=== PATIENT | male | born 1955 | race Caucasian/White ===

== ENCOUNTER 2018-08-19 18:29 | Inpatient (IN) | payer OTHER, SELFPAY ==
--- NOTE | 2018-08-19 19:40 | RAD REPORT ---
EXAM DESCRIPTION: CT - [id number] - 08/19/2018 7:27 pm CLINICAL HISTORY: Trauma, head and neck injury. fall COMPARISON: No comparisons TECHNIQUE: Axial 5 mm thick images of the head were obtained. Axial 2 mm thick images of the cervical spine were obtained with sagittal and coronal reconstruction images generated and reviewed. All CT scans are performed using dose optimization technique as appropriate and may include automated exposure control or mA/KV adjustment according to patient size. FINDINGS: CT HEAD WITHOUT CONTRAST: No acute hemorrhage, hydrocephalus or extra-axial collection is identified.No areas of brain edema or midline shift. The paranasal sinuses and mastoids are clear.The calvarium is intact. CT CERVICAL SPINE WITHOUT CONTRAST: No fracture or subluxation.Mild multilevel cervical spondylosis is present.No prevertebral soft tissu es swelling is identified. IMPRESSION: No acute intracranial or cervical spine findings. Multilevel cervical spondylosis is noted.
[2018-08-19 19:45] LABS: Protime INR 0.97
[2018-08-19 19:50] LABS: Absolute Lymphocytes (CBC) 0.8 K/uL (0.7-4.9); Absolute Monocytes 0.5 K/uL (0.1-1.3); Absolute Neutrophil 4.8 K/uL (1.8-8.0); Basophils % 0.3 % (0-1.3); Eosinophils % 0.2 % (0-4.4); Lymphocytes % 12.5 % (15.3-44.8); MCH 37.3 pg (27.0-35.0); MCV 107.3 fL (80-100); MPV 9.1 fL (7.6-11.3); Monocytes % 7.8 % (3.3-12.3); RBC Red Blood Cell Count 3.63 M/uL (4.33-5.43)
[2018-08-19 19:55] LABS: ALT/SGPT 75 U/L (12-78); AST/SGOT 168 U/L (15-37); Albumin 4.1 g/dL (3.4-5.0); Alkaline Phosphatase 136 U/L (45-117); BUN Blood Urea Nitrogen 26 mg/dL (7-18); Bicarbonate 26 mmol/L (21-32); Bilirubin Direct 0.9 mg/dL (0-0.2); Bilirubin Total 1.3 mg/dL (0.2-1.0); Glucose Level 213 mg/dL (74-106); Magnesium 1.7 mg/dL (1.8-2.4); NT PRO-BNP 269 pg/mL (<125); Potassium 3.4 mmol/L (3.5-5.1); Protein, Total 7.8 g/dL (6.4-8.2); Sodium Level 129 mmol/L (136-145); Troponin (Emerg Dept Use Only) < 0.02 ng/mL (0.0-0.045)
[2018-08-19 20:19] LABS: Blood Morphology Comment NOT SEEN (NOT SEEN); Macrocytosis 1+; Platelet Estimate ADEQ; Urine White Blood Cell Casts OK
[2018-08-19] MEDS ORDERED: LIDOCAINE 1% W/EPI 1:100,000 MDV 50 ML VIAL ONE (20:23)
[2018-08-19] MEDS ORDERED: ONDANSETRON 4 MG/2 ML VIAL IV PRN (20:46)
[2018-08-19] MEDS ORDERED: ALPRAZOLAM 0.25 MG TABLET PO PRN (20:46)
[2018-08-19] MEDS ORDERED: ACETAMINOPHEN 500 MG TAB PO PRN (20:46)
[2018-08-19] MEDS: chlordiazePOXIDE HCl 5 MG CAP PO SCH (21:00)
--- NOTE | 2018-08-19 21:02 | RAD REPORT ---
EXAM DESCRIPTION: RAD - Chest Single View - 08/19/2018 8:40 pm CLINICAL HISTORY: fall to gr Chest pain. COMPARISON: No comparisons FINDINGS: Portable technique limits examination quality. The lungs are grossly clear. The heart is normal in size. No displaced fractures. IMPRESSION: No acute intrathoracic process suspected.
[2018-08-19] MEDS ORDERED: THIAMINE 200 MG/2 ML INJ ONE (21:28)
[2018-08-19] MEDS ORDERED: NA CHLORIDE 0.9% 2,000 ML ONE (21:28)
[2018-08-19] MEDS ORDERED: MULTIVITAMINS 10 ML VIAL (INJ) IV ONE (21:28)
[2018-08-19] MEDS ORDERED: FOLIC ACID 5 MG/ML VIAL ONE (21:29)
--- NOTE | 2018-08-19 21:48 | EDPHYS ---
Physician Documentation [facility] Name: Shreyas Mckeon Age: 63 yrs Sex: Male : 1955 Arrival Date: 08/19/2018 Time: 18:34 Bed 25 Private MD: ED Physician Palmer Erickson HPI: 08/19 19:00 This 63 yrs old Male presents to ER via EMS with complaints of Fall Injury. cp 19:00 Details of fall: The patient fell from an upright position. cp 19:00 Onset: The symptoms/episode began/occurred today. Associated injuries: The patient cp sustained injury to the head, laceration, of the bridge of nose. Patient reports waking up on floor next to bed. Patient states he believes he awoke from sleeping and went to get up out of bed. Reports next thing he remembers is awakening on floor. Admits to daily drinking of alcohol. Historical: - Allergies: 20:15 ACETAMINOPHEN; rv - PMHx: 20:15 Diabetes - NIDDM; Hypertension; rv - PSHx: 20:15 None; rv - Immunization history:: Adult Immunizations up to date. - Social history:: Smoking status: Patient/guardian denies using tobacco. - Immunization history: Last tetanus immunization: - up to date. - Ebola Screening: : Patient negative for fever greater than or equal to 101.5 degrees Fahrenheit, and additional compatible Ebola Virus Disease symptoms Patient denies exposure to infectious person Patient denies travel to an Ebola-affected area in the 21 days before illness onset. ROS: 19:05 Constitutional: Negative for body aches, chills, fever, poor PO intake. cp 19:05 Eyes: Negative for injury, pain, redness, and discharge. cp 19:05 ENT: Negative for drainage from ear(s), ear pain, sore throat, difficulty swallowing, difficulty handling secretions. 19:05 Cardiovascular: Negative for chest pain, edema, palpitations. 19:05 Respiratory: Negative for cough, shortness of breath, wheezing. 19:05 Abdomen/GI: Negative for abdominal pain, nausea, vomiting, and diarrhea, anorexia, black/tarry stool, rectal bleeding. 19:05 Back: Negative for pain at rest, pain with movement. 19:05 Skin: Positive for laceration(s), of the bridge of nose, Negative for cellulitis. 19:05 Neuro: Positive for syncope, Negative for altered mental status, headache, weakness. 19:05 Psych: Positive for alcohol dependence. 19:05 All other systems are negative. Exam: 19:12 Constitutional: The patient appears in no acute distress, alert, awake, cp non-diaphoretic, non-toxic, well developed, well nourished, smells of alcohol. 19:12 Head/face: Noted is a laceration(s), that is jagged, 2 cm(s), of the bridge of nose, cp Sinus tenderness, is not appreciated. 19:12 Eyes: Periorbital structures: appear normal, Pupils: equal, round, and reactive to light and accomodation, Extraocular movements: intact throughout, Conjunctiva: normal, no exudate, no injection, Sclera: no appreciated abnormality, Lids and lashes: appear normal, bilaterally. 19:12 ENT: External ear(s): are unremarkable, Ear canal(s): are normal, clear, TM's: bulging, is not appreciated, bilaterally, dullness, bilaterally, erythema, is not appreciated, bilaterally, Nose: Nasal septum: is midline, no septal hematoma appreciated, bleeding, is not appreciated, nasal drainage, is not appreciated, Mouth: Lips: moist, Oral mucosa: moist, Posterior pharynx: is normal, airway is patent, no erythema, no exudate. 19:12 Neck: C-spine: vertebral tenderness, is not appreciated, crepitus, is not appreciated, ROM/movement: limited range of motion, is not appreciated, nuchal rigidity, is not appreciated. 19:12 Chest/axilla: Inspection: normal, Palpation: is normal, no crepitus, no tenderness. 19:12 Cardiovascular: Rate: normal, Rhythm: regular, Edema: is not appreciated, JVD: is not appreciated. 19:12 Respiratory: the patient does not display signs of respiratory distress, Respirations: normal, no use of accessory muscles, no retractions, no splinting, no tachypnea, labored breathing, is not present, Breath sounds: are clear throughout, no decreased breath sounds, no stridor, no wheezing. 19:12 Abdomen/GI: Inspection: abdomen appears normal, Bowel sounds: active, all quadrants, Palpation: abdomen is soft and non-tender, in all quadrants. 19:12 Back: pain, is absent, ROM is normal, vertebral tenderness, is not appreciated. 19:12 Skin: cellulitis, is not appreciated, no rash present. 19:12 Neuro: Orientation: to person, place \T\ time. Mentation: lucid, able to follow commands, Motor: moves all fours, strength is normal, Sensation: no obvious gross deficits, Gait: not tested. 19:25 ECG was reviewed by the Attending Physician. cp 22:00 : Rectal exam: Stool: dark, Guaiac testing: results were negative for occult blood. cp Vital Signs: 19:21 BP 98 / 58; Pulse 69; Resp 17; Temp 97.9; Pulse Ox 99% on R/A; Pain 3/10; kr2 19:35 BP 99 / 66 LA Supine (auto/reg); Pulse 81; Pulse Ox 97% on R/A; jp3 19:35 BP 92 / 69 LA Sitting (auto/reg); Pulse 85; Pulse Ox 97% on R/A; jp3 19:37 BP 106 / 54 LA Standing (auto/reg); Pulse 90; Pulse Ox 97% on R/A; jp3 20:16 BP 96 / 56; Pulse 90; Resp 16; Pulse Ox 99% on R/A; kr2 21:00 BP 94 / 59; Pulse 73; Resp 17; Pulse Ox 100% ; kr2 22:01 BP 111 / 63; Pulse 97; Resp 17; Pulse Ox 100% on R/A; kr2 23:00 BP 122 / 79; Pulse 78; Resp 16; Pulse Ox 99% on R/A; kr2 Binh Coma Score: 20:17 Eye Response: spontaneous(4). Verbal Response: oriented(5). Motor Response: obeys rv commands(6). Total: 15. Trauma Score (Adult): 20:17 Eye Response: spontaneous(1); Verbal Response: oriented(1); Motor Response: obeys rv commands(2); Systolic BP: > 89 mm Hg(4); Respiratory Rate: 10 to 29 per min(4); Binh Score: 15; Trauma Score: 12 Laceration: 21:42 Wound Repair of 2cm ( 0.8in ) subcutaneous laceration to nose. Irregularly shaped.. cp Distal neuro/vascular/tendon intact. Anesthesia: Wound infiltrated with 2 mls of 1% lidocaine w/ Epi. Wound prep: Moderate cleansing by nurse. Skin closed with 3 5-0 Vicryl using interrupted sutures and sterile technique. Dressed with Bacitracin, bandaid. Patient tolerated well. MDM: 18:38 Patient medically screened. cp 19:00 Differential diagnosis: closed head injury, contusion, fracture, laceration, multiple cp trauma. 21:45 Data reviewed: vital signs, nurses notes, lab test result(s), EKG, radiologic studies, cp CT scan, plain films. 21:45 Test interpretation: by ED physician or midlevel provider: ECG, plain radiologic cp studies. Counseling: I had a detailed discussion with the patient and/or guardian regarding: the historical points, exam findings, and any diagnostic results supporting the discharge/admit diagnosis, lab results, radiology results, the need for further work-up and treatment in the hospital. Response to treatment: the patient's symptoms have mildly improved after treatment. 08/19 18:45 Order name: Basic Metabolic Panel; Complete Time: 20:01 08/19 20:01 Interpretation: Normal except: NA 129; K 3.4; CL 87; GLUC 213; BUN 26; CRE 2.60; GFR 25.cp 08/19 18:45 Order name: CBC with Diff; Complete Time: 20:28 08/19 20:02 Interpretation: Normal except: RBC 3.63; HCT 39.0; MCV 107.3; MCH 37.3; KRISTAL% 79.2; LYM% cp 12.5. 08/19 18:45 Order name: LFT's; Complete Time: 20:01 08/19 20:02 Interpretation: Normal except: AST 168; ALK 136; BILIT 1.3; BILID 0.9; GLOB 3.7. 08/19 18:45 Order name: Magnesium; Complete Time: 20:01 cp 08/19 20:16 Interpretation: Abnormal: MG 1.7. 08/19 18:45 Order name: NT PRO-BNP; Complete Time: 20:01 cp 08/19 18:45 Order name: PT-INR; Complete Time: 20:01 cp 08/19 18:45 Order name: Troponin (emerg Dept Use Only); Complete Time: 20:01 cp 08/19 19:51 Order name: CBC Smear Scan; Complete Time: 20:28 EDMS 08/19 20:07 Order name: Urine Microscopic Only 08/19 20:15 Order name: Alcohol Level; Complete Time: 21:05 08/19 20:15 Order name: LAB Add On 08/19 20:19 Order name: Alcohol Serum/Plasma; Complete Time: 21:05 EDMS 08/19 20:54 Order name: CBC with Automated Diff EDMS 08/19 20:54 Order name: CBC with Automated Diff EDMS 08/19 18:45 Order name: CT Head C Spine; Complete Time: 20:01 08/19 20:04 Order name: XRAY Chest (1 view); Complete Time: 21:05 08/19 20:54 Order name: Comprehensive Metabolic Panel EDMS 08/19 20:54 Order name: Comprehensive Metabolic Panel EDMS 08/19 20:54 Order name: Magnesium EDMS 08/19 20:54 Order name: Magnesium EDMS 08/19 20:54 Order name: Phosphorus EDMS 08/19 20:54 Order name: Phosphorus EDMS 08/19 20:54 Order name: Protime (+INR) EDMS 08/19 20:54 Order name: Protime (+INR) EDMS 08/19 20:54 Order name: PTT, Activated Partial Thromb EDMS 08/19 20:54 Order name: PTT, Activated Partial Thromb EDMS 08/19 23:34 Order name: Urine Dipstick--Ancillary (enter results) [facility] 08/19 23:37 Order name: Urine Dipstick-Ancillary [facility] 08/19 18:45 Order name: Orthostatics; Complete Time: 20:13 08/19 18:45 Order name: EKG; Complete Time: 18:46 08/19 18:45 Order name: Cardiac monitoring; Complete Time: 19:23 08/19 18:45 Order name: EKG - Nurse/Tech; Complete Time: 19:23 08/19 18:45 Order name: IV Saline Lock; Complete Time: 19:23 08/19 18:45 Order name: Labs collected and sent; Complete Time: 19:23 08/19 18:45 Order name: O2 Per Protocol; Complete Time: 19:30 08/19 18:45 Order name: O2 Sat Monitoring; Complete Time: 19:30 08/19 20:07 Order name: Urine Dipstick-Ancillary (obtain specimen); Complete Time: 23:48 08/19 20:10 Order name: Wound Care; Complete Time: 20:18 08/19 20:10 Order name: Dressing - Wound; Complete Time: 20:27 08/19 20:10 Order name: Gloves, Sterile; Complete Time: 20:18 08/19 20:10 Order name: Setup Suture Tray; Complete Time: 20:18 08/19 20:54 Order name: NPO EDMS EC: Rate is 80 beats/min. Rhythm is regular. NH interval is prolonged at 234 msec. QRS cp interval is normal. QT interval is normal. Interpreted by me. Reviewed by me. Administered Medications: 21:15 Drug: Lidocaine-Epinephrine -1%: (1:100,000) 5 ml {Note: Administered by provider kr PA. Judith} Volume: 20 ml; Route: Infiltration; 22:00 Follow up: Response: No adverse reaction; Pain is decreased [facility] 21:35 Drug: NS 0.9% 1000 ml Route: IV; Rate: 1 bolus; Site: left forearm; kr2 22:45 Follow up: Response: No adverse reaction; IV Status: Completed infusion [facility] 08/20 03:40 Follow up: IV Status: Completed infusion; IV Intake: 1000ml 08/19 21:35 Drug: Banana Bag - (NS 0.9% 1000 ml, foLIC Acid 1 mg, Thiamine 100 mg, Multivitamin 1 kr2 amp) Route: IV; Rate: 150 ml/hr; Site: left forearm; 23:47 Follow up: Response: No adverse reaction; IV Status: Infusion continued upon admission [facility] 08/20 03:40 Follow up: IV Status: Completed infusion; IV Intake: 1000ml bb Disposition: 08/19 22:00 Chart complete. cp Disposition: 08/19/18 21:47 Hospitalization ordered by Palmer Avalos for Inpatient Admission. Preliminary diagnosis are Hypotension, Alcohol abuse with intoxication, Syncope and collapse, Unspecified kidney failure. - Bed requested for Telemetry/MedSurg (observation). - Status is Inpatient Admission. bb - Condition is Stable. - Problem is new. - Symptoms have improved. UTI on Admission? No Addendum: 08/22/2018 06:03 Co-signature as Attending Physician, Mohammad Alzahri MD. m a2 Signatures: Dispatcher [employer] EDMS Janice Rivas RN RN Kendra De Jesus RN RN bb Jose Carrion PA PA cp Reaves, Karey, RN RN kr2 Palmer Erickson MD MD ma2 Evaristo Rossi RN RN rv Corrections: (The following items were deleted from the chart) 08/19 21:48 21:47 Hospitalization Ordered by Palmer Avalos MD for Observation. Preliminary mw diagnosis is Hypotension; Alcohol abuse with intoxication; Syncope and collapse. Bed requested for Telemetry/MedSurg (observation). Status is Observation. Condition is Stable. Problem is new. Symptoms have improved. UTI on Admission? No. cp 22:03 21:48 08/19/2018 21:47 Hospitalization Ordered by Palmer Avalos MD for Observation. cp Preliminary diagnosis is Hypotension; Alcohol abuse with intoxication; Syncope and collapse. Bed requested for [facility] ER HOLD. Status is Observation. Condition is Stable. Problem is new. Symptoms have improved. UTI on Admission? No. 22:17 22:03 08/19/2018 21:47 Hospitalization Ordered by Palmer Avalos MD for Observation. cp Preliminary diagnosis is Hypotension; Alcohol abuse with intoxication; Syncope and collapse; Unspecified kidney failure. Bed requested for [facility] ER HOLD. Status is Observation. Condition is Stable. Problem is new. Symptoms have improved. UTI on Admission? No. cp 08/20 04:01 08/19 22:17 08/19/2018 21:47 Hospitalization Ordered by Palmer Avalos MD for Inpatient mw Admission. Preliminary diagnosis is Hypotension; Alcohol abuse with intoxication; Syncope and collapse; Unspecified kidney failure. Bed requested for [facility] ER HOLD. Status is Inpatient Admission. Condition is Stable. Problem is new. Symptoms have improved. UTI on Admission? No. cp 08/20 04:16 04:01 08/19/2018 21:47 Hospitalization Ordered by Palmer Avalos MD for Inpatient bb Admission. Preliminary diagnosis is Hypotension; Alcohol abuse with intoxication; Syncope and collapse; Unspecified kidney failure. Bed requested for Telemetry/MedSurg (observation). Status is Inpatient Admission. Condition is Stable. Problem is new. Symptoms have improved. UTI on Admission? No. mw
--- NOTE | 2018-08-19 21:48 | ER ---
Nurse's Notes [facility] Unit Name: Shreyas Mckeon Age: 63 yrs Sex: Male : 1955 Arrival Date: 08/19/2018 Time: 18:34 Bed 25 Private MD: Diagnosis: Hypotension;Alcohol abuse with intoxication;Syncope and collapse;Unspecified kidney failure Presentation: 08/19 18:49 Presenting complaint: EMS states: "He stood up from sleeping. doesn't remember falling rv down. He woke up on the floor. He fell two or three days ago hit his head but did not go to medical facility.". Transition of care: patient was not received from another setting of care. Onset of symptoms was August 19, 2018 at 18:51. Risk Assessment: Do you want to hurt yourself or someone else? Patient reports no desire to harm self or others. Initial Sepsis Screen: Does the patient meet any 2 criteria? No. Patient's initial sepsis screen is negative. Does the patient have a suspected source of infection? No. Patient's initial sepsis screen is negative. Care prior to arrival: None. 18:49 Method Of Arrival: EMS: [facility] rv 18:49 Acuity: FRIDA 3 rv 18:50 Trauma event details: Injury occurred in the [facility], Injury occurred: at kr2 home. Injury occurred: August 19, 2018. 20:18 Mechanism of Injury: Fall. rv Triage Assessment: 20:18 General: Appears in no apparent distress. uncomfortable, Behavior is calm. rv 20:18 Pain: Denies pain. rv Trauma Activation: Not Applicable Physician: ED Physician; Name: ; Notified At: ; Arrived At: Physician: General Surgeon; Name: ; Notified At: ; Arrived At: Physician: Radiology; Name: ; Notified At: ; Arrived At: Physician: Respiratory; Name: ; Notified At: ; Arrived At: Physician: Lab; Name: ; Notified At: ; Arrived At: Historical: - Allergies: 20:15 ACETAMINOPHEN; rv - PMHx: 20:15 Diabetes - NIDDM; Hypertension; rv - PSHx: 20:15 None; rv - Immunization history:: Adult Immunizations up to date. - Social history:: Smoking status: Patient/guardian denies using tobacco. - Immunization history: Last tetanus immunization: - up to date. - Ebola Screening: : Patient negative for fever greater than or equal to 101.5 degrees Fahrenheit, and additional compatible Ebola Virus Disease symptoms Patient denies exposure to infectious person Patient denies travel to an Ebola-affected area in the 21 days before illness onset. Screenin:16 Abuse screen: Denies threats or abuse. Denies injuries from another. Nutritional rv screening: No deficits noted. Tuberculosis screening: No symptoms or risk factors identified. Fall Risk Fall in past 12 months (25 points). No secondary diagnosis (0 pts). No IV (0 pts). Ambulatory Aid- None/Bed Rest/Nurse Assist (0 pts). Gait- Normal/Bed Rest/Wheelchair (0 pts) Mental Status- Oriented to own ability (0 pts). Total Robertson Fall Scale indicates Low Risk Score (25-44 pts). Fall prevention measures have been instituted. Side Rails Up X 2 Placed close to Nursing Station Frequent Obs/Assesments occuring As available Patient and Family Educated on Fall Prevention Program and strategies. Primary Survey: 20:17 A: Airway: patent. Breathing/Chest: Respiratory pattern: regular. Circulation: Cardiac rv rhythm: sinus rhythm. Disability Alert. 20:17 Reassessment Airway Airway Patent Breathing/Chest Respiratory pattern Regular rv Circulation Heart rhythm Sinus rhythm Disability Alert. Assessment: 19:30 General: Appears in no apparent distress. comfortable, well groomed, well developed, kr2 Behavior is calm, cooperative, appropriate for age. Pain: Complains of pain in face and nose Pain currently is 3 out of 10 on a pain scale. Quality of pain is described as aching, Is continuous, Alleviated by rest. Neuro: Level of Consciousness is awake, alert, obeys commands, Oriented to person, place, time, situation, Appropriate for age. Cardiovascular: Capillary refill < 3 seconds in bilateral fingers Patient's skin is warm and dry. Respiratory: Airway is patent Respiratory effort is even, unlabored, Respiratory pattern is regular, symmetrical. GI: Abdomen is flat, non-distended. EENT: Oral mucosa is moist. Derm: Skin with poor turgor Skin is pink, warm \\T\\ dry. Musculoskeletal: Circulation, motion, and sensation intact. Injury Description: Abrasion sustained to forehead is dirty, Laceration sustained to nose is contaminated, 0.5 to 2.5 cm long, a small amount of bleeding noted at this time. 20:30 Reassessment: Patient appears in no apparent distress at this time. Patient and/or kr2 family updated on plan of care and expected duration. Pain level reassessed. Patient is alert, oriented x 3, equal unlabored respirations, skin warm/dry/pink. Patient denies pain at this time. Patient states feeling better. 21:30 Reassessment: Patient appears in no apparent distress at this time. Patient and/or kr2 family updated on plan of care and expected duration. Pain level reassessed. Patient is alert, oriented x 3, equal unlabored respirations, skin warm/dry/pink. Patient denies pain at this time. Patient states feeling better. 22:30 Reassessment: Patient appears in no apparent distress at this time. Patient and/or kr2 family updated on plan of care and expected duration. Pain level reassessed. Patient is alert, oriented x 3, equal unlabored respirations, skin warm/dry/pink. 23:52 Reassessment: See [facility] charting. kr2 Vital Signs: 19:21 BP 98 / 58; Pulse 69; Resp 17; Temp 97.9; Pulse Ox 99% on R/A; Pain 3/10; kr2 19:35 BP 99 / 66 LA Supine (auto/reg); Pulse 81; Pulse Ox 97% on R/A; jp3 19:35 BP 92 / 69 LA Sitting (auto/reg); Pulse 85; Pulse Ox 97% on R/A; jp3 19:37 BP 106 / 54 LA Standing (auto/reg); Pulse 90; Pulse Ox 97% on R/A; jp3 20:16 BP 96 / 56; Pulse 90; Resp 16; Pulse Ox 99% on R/A; kr2 21:00 BP 94 / 59; Pulse 73; Resp 17; Pulse Ox 100% ; kr2 22:01 BP 111 / 63; Pulse 97; Resp 17; Pulse Ox 100% on R/A; kr2 23:00 BP 122 / 79; Pulse 78; Resp 16; Pulse Ox 99% on R/A; kr2 Binh Coma Score: 20:17 Eye Response: spontaneous(4). Verbal Response: oriented(5). Motor Response: obeys rv commands(6). Total: 15. Trauma Score (Adult): 20:17 Eye Response: spontaneous(1); Verbal Response: oriented(1); Motor Response: obeys rv commands(2); Systolic BP: > 89 mm Hg(4); Respiratory Rate: 10 to 29 per min(4); [place] Score: 15; Trauma Score: 12 ED Course: 18:34 Patient arrived in ED. kr2 18:38 Jose Carrion PA is PHCP. cp 18:38 Palmer Erickson MD is Attending Physician. cp 18:40 Thermoregulation: warm blanket given to patient. kr2 18:51 Triage completed. rv 19:00 Missed attempt(s): 20 gauge in right antecubital area. Bleeding controlled, band aid kr2 applied, catheter tip intact. 19:[address] via wheelchair. cw1 19:05 Missed attempt(s): 22 gauge in left forearm. Bleeding controlled, band aid applied, kr2 catheter tip intact. 19:15 Initial lab(s) drawn, by me, sent to lab. jp3 19:22 Inserted saline lock: 22 gauge in left forearm, using aseptic technique. Blood jp3 collected. 19:23 EKG done, by ED staff, reviewed by Jose HANSEN. kr2 19:23 Basic Metabolic Panel Sent. jp3 19:23 CBC with Diff Sent. jp3 19:23 LFT's Sent. jp3 19:23 Magnesium Sent. jp3 19:23 NT PRO-BNP Sent. jp3 19:23 PT-INR Sent. jp3 19:23 Troponin (emerg Dept Use Only) Sent. jp3 19:25 CT completed. Patient moved back from CT. cw1 19:28 CT Head C Spine In Process Unspecified. EDMS 19:30 Bed in low position. Call light in reach. Side rails up X 1. Side rails up X2. jp3 19:50 Warm blanket given. Pillow given. Pulse ox on. NIBP on. jp3 20:17 No provider procedures requiring assistance completed. rv 20:18 Patient maintains SpO2 saturation greater than 95% on room air. rv 20:18 Arm band placed on left wrist. rv 20:20 Wound care: to laceration located on nose was cleaned with Hibiclens, debrided using jp3 Betadine scrub, dressed with 4X4s, Patient tolerated well. 20:35 Initial lab(s) drawn, by me, sent to lab. nicky ETHO from 22-gauge IV in L-Forearm. jp3 20:40 XRAY Chest (1 view) In Process Unspecified. EDMS 20:40 Alcohol Serum/Plasma Sent. jp3 20:40 Alcohol Level Sent. jp3 20:40 LAB Add On Sent. jp3 20:44 X-ray completed. Portable x-ray completed in exam room. Patient tolerated procedure kp1 well. 21:46 Palmer Avalos MD is Hospitalizing Provider. cp 22:02 Sheela Ji, BRICE is Primary Nurse. kr2 08/20 02:00 Patient admitted, IV remains in place. bb Administered Medications: 08/19 21:15 Drug: Lidocaine-Epinephrine -1%: (1:100,000) 5 ml {Note: Administered by provider kr2 PA. Judith} Volume: 20 ml; Route: Infiltration; 22:00 Follow up: Response: No adverse reaction; Pain is decreased kr2 21:35 Drug: NS 0.9% 1000 ml Route: IV; Rate: 1 bolus; Site: left forearm; kr2 22:45 Follow up: Response: No adverse reaction; IV Status: Completed infusion kr2 08/20 03:40 Follow up: IV Status: Completed infusion; IV Intake: 1000ml bb 08/19 21:35 Drug: Banana Bag - (NS 0.9% 1000 ml, foLIC Acid 1 mg, Thiamine 100 mg, Multivitamin 1 kr2 amp) Route: IV; Rate: 150 ml/hr; Site: left forearm; 23:47 Follow up: Response: No adverse reaction; IV Status: Infusion continued upon admission kr2 08/20 03:40 Follow up: IV Status: Completed infusion; IV Intake: 1000ml bb Intake: 08/19 23:56 IV: 1350ml (IV Fluid); Total: 1350ml. kr2 08/20 03:40 IV: 1000ml; Total: 2350ml. bb 03:40 IV: 1000ml; Total: 3350ml. bb Output: 08/19 23:56 Urine: 400ml; Total: 400ml. kr2 Outcome: 21:47 Decision to Hospitalize by Provider. cp 23:56 Patient's length of stay in the Emergency Department was greater than 2 hours. kr2 Patient's length of stay was extended due to staffing issues within the emergency department. 08/20 02:00 Condition: stable bb 02:00 Admitted to ER Hold. Please see [facility] for further documentation. bb 02:00 Instructed on the need for admit. 04:16 Patient left the ED. bb Signatures: Dispatcher [employer] EDKendra Aguilar, RN RN Ruth Abad cw1 Jose Carrion PA PA cp Poole, Kathy kp1 Sheela Ji RN RN kr2 Evaristo Rossi RN RN rv Nathan Frey jp3 Corrections: (The following items were deleted from the chart) 08/19 21:02 20:56 Reassessment: Patient appears in no apparent distress at this time. Patient kr2 and/or family updated on plan of care and expected duration. Pain level reassessed. Patient is alert, oriented x 3, equal unlabored respirations, skin warm/dry/pink. Patient denies pain at this time. Patient states feeling better. kr2 21:02 19:30 Pain: Complains of pain in face and nose Pain currently is 5 out of 10 on a pain kr2 scale. Quality of pain is described as aching, Is continuous, Alleviated by rest, kr2 21:02 19:30 Injury Description: Laceration sustained to nose is contaminated, 0.5 to 2.5 cm kr2 long, a small amount of bleeding noted at this time. kr2
[2018-08-19] MEDS ORDERED: chlordiazePOXIDE HCl 5 MG CAP PO ONE (23:14)
[2018-08-19 23:37] LABS: Urine Blood 2+ (NEG); Urine Glucose 2+ (NEG); Urine Protein 2+ (NEG); Urine Specific Gravity 1.015 (1.005-1.030)
[2018-08-20 01:40] LABS: Urine Amorphous Sediment TRACE /HPF (NONE SEEN); Urine Bacteria <20 /HPF (NONE SEEN); Urine Culture Reflex Order REFLEXED; Urine RBC NONE SEEN /HPF (NONE SEEN)
[2018-08-20 04:33] VITALS: BMI 27.6
[2018-08-20 05:40] LABS: Absolute Lymphocytes (CBC) 0.6 K/uL (0.7-4.9); Absolute Monocytes 0.5 K/uL (0.1-1.3); Absolute Neutrophil 5.5 K/uL (1.8-8.0); Basophils % 0.3 % (0-1.3); Eosinophils % 0.1 % (0-4.4); Hematocrit 34.8 % (39.6-49.0); MCH 37.7 pg (27.0-35.0); MCV 106.1 fL (80-100); MPV 8.8 fL (7.6-11.3); Monocytes % 7.9 % (3.3-12.3); RBC Red Blood Cell Count 3.28 M/uL (4.33-5.43)
[2018-08-20 05:51] LABS: Protime INR 0.99
[2018-08-20 06:01] LABS: Albumin 3.7 g/dL (3.4-5.0); Bilirubin Total 1.3 mg/dL (0.2-1.0); Phosphorus 2.1 mg/dL (2.5-4.9); Potassium 3.8 mmol/L (3.5-5.1); Protein, Total 6.8 g/dL (6.4-8.2)
[2018-08-20 06:02] LABS: Magnesium 1.4 mg/dL (1.8-2.4)
[2018-08-20] MEDS ORDERED: Magnesium Sulfate 2gm IVPB 2 G/50 ML BAG IV ONE (06:15)
--- NOTE | 2018-08-20 06:15 | EKG ---
Test Date: 2018-08-19 Test Time: 19:16:04 [employer] Closer: MEASUREMENT RESULTS: Intervals: Rate: 80 VA: 234 QRSD: 76 QT: 452 QTc: 521 Leonard: P: 72 VA: 234 QRS: 9 T: 15 INTERPRETIVE STATEMENTS: Sinus rhythm with 1st degree AV block with occasional premature ventricular complexes Low voltage QRS Cannot rule out Anterior infarct, age undetermined Abnormal ECG No previous ECG available for comparison Electronically Signed On 08-20-18 06:14:47 PROPERTY OFFICER by Aston Hobbs
[2018-08-20] MEDS ORDERED: HOME MED 1 EA UNK (Losartan/Hydrochlorothiazide [Losartan-Hctz 100-12.5 Mg Tab] 1 EACH) PO SCH (09:00)
[2018-08-20] MEDS: HOME MED 1 EA UNK (Empagliflozin [Jardiance] 10 MG) PO SCH (09:00)
[2018-08-20] MEDS ORDERED: ENOXAPARIN 40 MG/0.4 ML SQ SCH (09:00)
[2018-08-20] MEDS ORDERED: ENOXAPARIN 30 MG/0.3 ML SQ SCH (09:00)
[2018-08-20] MEDS ORDERED: POTASSIUM PHOS IN 0.9 % NACL 15 MMOL/250 ML BAG IV ONE (09:00)
[2018-08-20] MEDS: METFORMIN HCL 500 MG TAB PO SCH ×2 (09:50→16:54)
[2018-08-20] MEDS: chlordiazePOXIDE HCl 5 MG CAP PO SCH ×3 (09:50→21:19)
[2018-08-20] MEDS: LOSARTAN POTASSIUM 50 MG TABLET PO SCH (09:51)
[2018-08-20] MEDS: PANTOPRAZOLE 40MG TABLET PO SCH (09:51)
[2018-08-20] MEDS: LOSARTAN/HCTZ 50-12.5 PO SCH (09:51)
[2018-08-20] MEDS: FOLIC ACID 1 MG, MULTIVITAMINS INJ 10 ML, THIAMINE HCL 100 MG in NA CHLORIDE 0.9% 1,000 ML IV SCH (09:52)
[2018-08-20 11:39] LABS: Urine Appearance CLEAR; Urine Bilirubin NEGATIVE (NEG); Urine Blood 1+ (NEG); Urine Color YELLOW; Urine Glucose 3+ (NEG); Urine Protein 2+ (NEG); Urine pH 6.5 (5.0-7.0)
[2018-08-20 11:40] LABS: Absolute Lymphocytes (CBC) 0.5 K/uL (0.7-4.9); Absolute Monocytes 0.4 K/uL (0.1-1.3); Absolute Neutrophil 3.7 K/uL (1.8-8.0); Basophils % 0.3 % (0-1.3); Eosinophils % 0.1 % (0-4.4); Lymphocytes % 11.6 % (15.3-44.8); MCH 37.4 pg (27.0-35.0); MCV 105.8 fL (80-100); MPV 9.2 fL (7.6-11.3); RBC Red Blood Cell Count 3.03 M/uL (4.33-5.43)
[2018-08-20 12:08] LABS: Urine Microscopic Reflex ORDER UMIC
[2018-08-20 12:19] LABS: BUN Blood Urea Nitrogen 24 mg/dL (7-18); Bicarbonate 26 mmol/L (21-32); Folic Acid, (Folate) > 20.0 ng/mL (3.1-17.5); Glucose Level 203 mg/dL (74-106); Magnesium 2.1 mg/dL (1.8-2.4); Phosphorus 1.7 mg/dL (2.5-4.9); Potassium 3.6 mmol/L (3.5-5.1); Sodium Level 134 mmol/L (136-145)
[2018-08-20 12:21] LABS: Urine RBC <5 /HPF (NONE SEEN)
[2018-08-20 12:22] LABS: Urine Amorphous Sediment TRACE /HPF (NONE SEEN); Urine Bacteria <20 /HPF (NONE SEEN); Urine Culture Reflex Order REFLEXED
[2018-08-20 12:26] LABS: Blood Morphology Comment NOT SEEN (NOT SEEN); Platelet Estimate ADEQ
--- NOTE | 2018-08-20 12:50 | P.HP ---
Certification for Inpatient Patient admitted to: Inpatient With expected LOS: >2 Midnights Patient will require the following post-hospital care: None Practitioner: I am a practitioner with admitting privileges, knowledge of patient current condition, hospital course, and medical plan of care. Services: Services provided to patient in accordance with Admission requirements found in Title 42 Section 412.3 of the Code of Federal Regulations Patient History Date of Service: 08/19/18 Reason for admission: Syncope/fall/alcohol abuse History of Present Illness: patient is a 63-year-old gentleman who was getting out of bed and completely passed out. He suffered a head laceration. Patient states he had similar episode in the past. He is a heavy drinker and has been drinking heavily for many years. He is also a diabetic and was diagnosed with diabetes only 7 years ago. 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 He could also have her neuropathy related to B12 deficiency. Patient will need to be admitted to the hospital and workup for his syncopal episode. We will do an Echocardiogram and carotid Doppler to further evaluate. He may need MRI to evaluate for cerebellar atrophy as the cause of his ataxia as he has had many years of alcohol use and abuse. He will need to be monitored for arrhthymia and will need follow-up with neurology for EMG. Allergies acetaminophen Allergy (Verified 08/19/18 21:59) Hives Home Medications: Empagliflozin [Jardiance] 10 mg PO DAILY 08/20/18 Losartan/Hydrochlorothiazide [Losartan-Hctz 100-12.5 mg Tab] 1 each PO DAILY Metformin HCl 500 mg PO BID 08/20/18 Pantoprazole Sodium 40 mg PO DAILY 08/20/18 Rosuvastatin Calcium 10 mg PO DAILY 08/20/18 Zolpidem Tartrate 10 mg PO PRN 08/20/18 - Past Medical/Surgical History Has patient received pneumonia vaccine in the past: Yes Diabetic: Yes -: Hypertension -: Diabetes mellitus 2 -: Alcohol abuse -: cholecystectomy - Family History Father Family History: Reviewed- Non-Contributory - Social History Smoking Status: Current some day smoker Alcohol use: Yes CD- Drugs: No Caffeine use: Yes Place of Residence: Home Review of Systems 10-point ROS is otherwise unremarkable Physical Examination - Vital Signs Temperature: 98.0 F Blood Pressure: 129/60 Pulse: 90 Respirations: 18 Pulse Ox (%): 96 - Physical Exam General: Alert, In no apparent distress, Oriented x3 HEENT: Atraumatic, PERRLA, Mucous membr. moist/pink, EOMI, Sclerae nonicteric Neck: Supple, 2+ carotid pulse no bruit, No LAD, Without JVD or thyroid abnormality Respiratory: Clear to auscultation bilaterally, Normal air movement Cardiovascular: Regular rate/rhythm, Normal S1 S2, No murmurs Gastrointestinal: Normal bowel sounds, Soft and benign, Non-distended, No tenderness Musculoskeletal: No clubbing, No swelling, No tenderness Integumentary: No rashes Neurological: Normal speech, Normal tone, Sensation intact, Cranial nerves 3-12 intact, Normal affect, Abnormal gait, Abnormal strength Lymphatics: No axilla or inguinal lymphadenopathy - Studies Laboratory Data (last 24 hrs) 08/19/18 19:15: PT 11.4, INR 0.97 08/19/18 19:15: WBC 6.1, Hgb 13.6, Hct 39.0 L, Plt Count 225 08/19/18 19:15: Sodium 129 L, Potassium 3.4 L, BUN 26 H, Creatinine 2.60 H, Glucose 213 H, Magnesium 1.7 L, Total Bilirubin 1.3 H, AST 168 H, ALT 75, Alkaline Phosphatase 136 H Assessment & Plan - Problems (Diagnosis) (1) Syncope and collapse Current Visit: Yes Status: Acute (2) Alcohol abuse Current Visit: Yes Status: Acute (3) Neuropathy Current Visit: Yes Status: Acute (4) Ataxia Current Visit: Yes Status: Acute - Plan PLAN: 1. Monitor on telemetry 2. Monitor for arrhythmia 3. Will get echo 4. Check B12 and outpt neurology follow-up 5. EMG as an outpt 6. May need MRI to evlauate for cerebellar atrophy 7. GI/DVT prophylaxis - Advance Directives Does patient have a Living Will: No Does patient have a Durable POA for Healthcare: No - Code Status/Comfort Care Code Status Assessed: Yes Code Status: Full Code Critical Care: No Time Spent Managing PTS Care (In Minutes): 50
--- NOTE | 2018-08-20 15:15 | RAD REPORT ---
EXAM DESCRIPTION: US - Lower Extremity Artery Uni Ltd - 08/20/2018 1:43 pm CLINICAL HISTORY: Peripheral vascular disease, soft tissue wound COMPARISON: None. TECHNIQUE: Grayscale and Doppler evaluation performed of the left lower extremity arterial tree. Dc ocity values and waveforms were obtained. There is visual inspection of the arterial tree. FINDINGS: Left common femoral artery triphasic waveform pattern of served with a 162 cm/second veloc ity.Superficial femoral triphasic waveform pattern seen with 126 cm/second velocity. Triphasic poplit eal artery was 74 cm/second. Posterior tibial and dorsalis pedis artery waveforms are primarily monophasic. Posterior tibial veloc ity was 94 cm/second with the dorsalis pedis velocity 117 cm/second. On visual inspection, no significant plaquing or flow restrictive lesion identifiable. No occlusion o bserved. IMPRESSION: Left lower extremity peripheral arterial disease is present but relatively mild. No occl usion or flow restricting lesion.
--- NOTE | 2018-08-20 16:12 | RAD REPORT ---
EXAM DESCRIPTION: RAD - Foot Left 2 View - 08/20/2018 2:13 pm CLINICAL HISTORY: Soft tissue wound left first toe COMPARISON: None. FINDINGS: Bone loss changes are evident at the tip of the first distal phalanx. This is the area of soft tissue wound and highly suggestive of osteomyelitis. Posttraumatic fracture etiology is lesser i n likelihood. Elsewhere no acute or destructive bone process seen. No air or foreign body in the soft tissues. IMPRESSION: Osteomyelitis changes tip of the first distal phalanx. No air or foreign body in the sof t tissues.
--- NOTE | 2018-08-20 16:49 | P.PN ---
Subjective Date of Service: 08/20/18 Chief Complaint: Syncope/fall/alcohol abuse Patient seen and examined at bedside. No family at bedside. Chart reviewed and Case discussed with nursing staff. Patient reports a little bit better than initially when he came in. His left toe bothers him, other than that no other concerns or complaints this morning. Reports ambulating to bathroom and back without any issues this morning. Review of Systems As noted Physical Examination - Vital Signs Temperature: 98.0 F Blood Pressure: 129/60 Pulse: 90 Respirations: 18 Pulse Ox (%): 96 - Physical Exam General: Alert, In no apparent distress, Oriented x3 HEENT: Atraumatic, PERRLA, EOMI Neck: Supple, JVD not distended Respiratory: Clear to auscultation bilaterally, Normal air movement Cardiovascular: Regular rate/rhythm, Normal S1 S2 Gastrointestinal: Normal bowel sounds, No tenderness Musculoskeletal: No tenderness Integumentary: Skin breakdown (On face noted), Other (Great left toe with an open wound; ) Neurological: Normal speech, Normal tone, Normal affect, Abnormal sensation - Studies Laboratory Data (last 24 hrs) 08/19/18 19:15: PT 11.4, INR 0.97 08/19/18 19:15: WBC 6.1, Hgb 13.6, Hct 39.0 L, Plt Count 225 08/19/18 19:15: Sodium 129 L, Potassium 3.4 L, BUN 26 H, Creatinine 2.60 H, Glucose 213 H, Magnesium 1.7 L, Total Bilirubin 1.3 H, AST 168 H, ALT 75, Alkaline Phosphatase 136 H Assessment And Plan - Plan This is a 63-year-old male with: Syncope and collapse Continue monitoring with telemetry arrhythmia. An echo pending for further evaluation. Alcohol abuse Patient with a history of heavy alcohol usage. Counseled on cessation CIWA protocol, monitor for withdrawal symptoms. Banana bag ordered and running. Multi vitamins and folic acid daily Left great toe wound, chronic and non-healing Patient with an open ulcer on left great toe. Per patient, he notices about a month ago though he does not feel anything there due to his neuropathy. He is unsure how or when he got this wound. Left foot x-ray, MRI ordered to evaluate for osteomyelitis/bone involvement Will also order arterial studies to evaluate for arterial disease. Wound care consultative. Diabetes mellitus type 2, with hyperglycemia Continue Accu-Cheks. Sliding scale insulin ordered, will adjust as needed. Essential hypertension Stable on home medications. Neuropathy This is likely secondary to alcohol use versus diabetes that has been uncontrolled. No B12 deficiency noted Ataxia May need an MRI to evaluate for cerebellar atrophy, if no improvement in symptoms. He may also need outpatient neurology followup. DVT prophylaxis: Lovenox GI prophylaxis: Protonix Diet: Diabetic Disposition: Pending symptomatic treatment. Continue to monitor for alcohol withdrawal symptoms. Ativan as needed. Physician Review: Patient Assessed, Agree with Above Assessment and Plan Time Spent Managing PTS Care (In Minutes): 45
[2018-08-20] MEDS ORDERED: LORazepam 2 MG/ML VIAL IV PRN (17:01)
[2018-08-20] MEDS: ROSUVASTATIN 10 MG TAB PO SCH (21:19)
[2018-08-20] MEDS: ZOLPIDEM TARTRATE 10 MG TABLET PO PRN (21:20)
[2018-08-20] MEDS: PROMOD 30 ML DOSE PO SCH (21:20)
[2018-08-21 05:54] LABS: Phosphorus 1.3 mg/dL (2.5-4.9); Potassium 3.6 mmol/L (3.5-5.1)
[2018-08-21] MEDS ORDERED: POTASSIUM PHOS IN 0.9 % NACL 15 MMOL/250 ML BAG IV ONE (06:05)
[2018-08-21] MEDS: ENOXAPARIN 40 MG/0.4 ML SQ SCH (09:00)
[2018-08-21] MEDS: HOME MED 1 EA UNK (Empagliflozin [Jardiance] 10 MG) PO SCH (09:00)
[2018-08-21] MEDS: PROMOD 30 ML DOSE PO SCH ×2 (09:00→22:47)
[2018-08-21] MEDS: chlordiazePOXIDE HCl 5 MG CAP PO SCH ×3 (09:04→22:48)
[2018-08-21] MEDS: METFORMIN HCL 500 MG TAB PO SCH ×2 (09:05→17:00)
[2018-08-21] MEDS: LOSARTAN POTASSIUM 50 MG TABLET PO SCH (09:05)
[2018-08-21] MEDS: PANTOPRAZOLE 40MG TABLET PO SCH (09:05)
[2018-08-21] MEDS: LOSARTAN/HCTZ 50-12.5 PO SCH (09:05)
[2018-08-21] MEDS: FOLIC ACID 1 MG, MULTIVITAMINS INJ 10 ML, THIAMINE HCL 100 MG in NA CHLORIDE 0.9% 1,000 ML IV SCH (10:37)
--- NOTE | 2018-08-21 13:21 | P.PN ---
Subjective Date of Service: 08/21/18 Chief Complaint: Syncope/fall/alcohol abuse Subjective: No new changes, No C/O voiced, Improving Patient seen and examined at bedside. No family at bedside. Chart reviewed and Case discussed with nursing staff. Patient improved. States he is walking around, eating a regular diet without any concerns or complaints. Review of Systems As noted Physical Examination - Vital Signs Temperature: 97.1 F Blood Pressure: 137/75 Pulse: 74 Respirations: 18 Pulse Ox (%): 100 - Physical Exam General: Alert, In no apparent distress, Oriented x3 HEENT: Atraumatic, PERRLA, EOMI Neck: Supple, JVD not distended Respiratory: Clear to auscultation bilaterally, Normal air movement Cardiovascular: Regular rate/rhythm, Normal S1 S2 Gastrointestinal: Normal bowel sounds, No tenderness Musculoskeletal: No tenderness Integumentary: Skin breakdown (Great left toe with an open wound), Diabetic ulcer Neurological: Normal speech, Normal tone, Normal affect Lymphatics: No axilla or inguinal lymphadenopathy Assessment And Plan - Plan This is a 63-year-old male with: Syncope and collapse Continue monitoring with telemetry arrhythmia. An echo pending for further evaluation. Alcohol abuse Patient with a history of heavy alcohol usage. Counseled on cessation CIWA protocol, monitor for withdrawal symptoms. Banana bag ordered and running. Multi vitamins and folic acid daily Left great toe wound, chronic and non-healing Patient with an open ulcer on left great toe. Per patient, he notices about a month ago though he does not feel anything there due to his neuropathy. He is unsure how or when he got this wound. Left foot x-ray, MRI ordered to evaluate for osteomyelitis/bone involvement Will also order arterial studies to evaluate for arterial disease. Wound care consult Start IV vancomycin. Diabetes mellitus type 2, with hyperglycemia Continue Accu-Cheks. Sliding scale insulin ordered, will adjust as needed. Essential hypertension Stable on home medications. Neuropathy This is likely secondary to alcohol use versus diabetes that has been uncontrolled. No B12 deficiency noted Ataxia May need an MRI to evaluate for cerebellar atrophy, if no improvement in symptoms. He may also need outpatient neurology followup. DVT prophylaxis: Lovenox GI prophylaxis: Protonix Diet: Diabetic Disposition: Pending symptomatic treatment. Continue IV antibiotics and to monitor for alcohol withdrawal symptoms. Ativan as needed. Physician Review: Patient Assessed, Agree with Above Assessment and Plan Time Spent Managing PTS Care (In Minutes): 35
[2018-08-21] MEDS: VANCOMYCIN 1.5 GM in NA CHLORIDE 0.9% 500 ML IVPB SCH (15:33)
[2018-08-21] MEDS: ROSUVASTATIN 10 MG TAB PO SCH (22:48)
[2018-08-21] MEDS: ZOLPIDEM TARTRATE 10 MG TABLET PO PRN (22:48)
[2018-08-22 05:48] LABS: Phosphorus 1.7 mg/dL (2.5-4.9); Potassium 3.5 mmol/L (3.5-5.1)
[2018-08-22] MEDS ORDERED: POTASSIUM PHOS IN 0.9 % NACL 15 MMOL/250 ML BAG IV ONE (06:12)
[2018-08-22] MEDS: chlordiazePOXIDE HCl 5 MG CAP PO SCH ×3 (08:54→20:19)
[2018-08-22] MEDS: METFORMIN HCL 500 MG TAB PO SCH ×2 (08:54→17:39)
[2018-08-22] MEDS: LOSARTAN POTASSIUM 50 MG TABLET PO SCH (08:55)
[2018-08-22] MEDS: LOSARTAN/HCTZ 50-12.5 PO SCH (08:56)
[2018-08-22] MEDS: ENOXAPARIN 40 MG/0.4 ML SQ SCH (08:56)
[2018-08-22] MEDS: PROMOD 30 ML DOSE PO SCH ×2 (08:56→20:19)
[2018-08-22] MEDS: PANTOPRAZOLE 40MG TABLET PO SCH (08:56)
[2018-08-22] MEDS: HOME MED 1 EA UNK (Empagliflozin [Jardiance] 10 MG) PO SCH (08:57)
[2018-08-22] MEDS: FOLIC ACID 1 MG, MULTIVITAMINS INJ 10 ML, THIAMINE HCL 100 MG in NA CHLORIDE 0.9% 1,000 ML IV SCH (10:16)
--- NOTE | 2018-08-22 13:47 | RAD REPORT ---
EXAM DESCRIPTION: RAD - Chest Single View - 08/22/2018 1:46 am CLINICAL HISTORY: S/P PICC insertion COMPARISON: Chest Single View dated 08/19/2018 FINDINGS: Portable chest was obtained following placement of a right upper extremity PICC line. The catheter tip projects over the SVC.
[2018-08-22] MEDS: VANCOMYCIN 1.5 GM in NA CHLORIDE 0.9% 500 ML IVPB SCH (14:15)
--- NOTE | 2018-08-22 17:19 | P.PN ---
Subjective Date of Service: 08/22/18 Chief Complaint: Syncope/fall/alcohol abuse Subjective: No new changes, No C/O voiced, Tolerating diet, Ambulating, Improving Patient seen and examined at bedside. No family at bedside. Chart reviewed and Case discussed with nursing staff. Patient improved. States he is walking around, eating a regular diet without any concerns or complaints. Review of Systems As noted Physical Examination - Vital Signs Temperature: 97.2 F Blood Pressure: 142/72 Pulse: 69 Respirations: 20 Pulse Ox (%): 100 - Physical Exam General: Alert, In no apparent distress, Oriented x3 HEENT: Atraumatic, PERRLA, EOMI Neck: Supple, JVD not distended Respiratory: Clear to auscultation bilaterally, Normal air movement Cardiovascular: Regular rate/rhythm, Normal S1 S2 Gastrointestinal: Normal bowel sounds, No tenderness Musculoskeletal: No tenderness Integumentary: No rashes Neurological: Normal speech, Normal tone, Normal affect Lymphatics: No axilla or inguinal lymphadenopathy Assessment And Plan - Plan This is a 63-year-old male with: Syncope and collapse Continue monitoring with telemetry arrhythmia. An echo pending for further evaluation. Alcohol abuse Patient with a history of heavy alcohol usage. Counseled on cessation CIWA protocol, monitor for withdrawal symptoms. Banana bag ordered and running. Multi vitamins and folic acid daily Left great toe wound, chronic and non-healing Patient with an open ulcer on left great toe. Per patient, he notices about a month ago though he does not feel anything there due to his neuropathy. He is unsure how or when he got this wound. Left foot x-ray, MRI ordered to evaluate for osteomyelitis/bone involvement Will also order arterial studies to evaluate for arterial disease. Wound care consult Start IV vancomycin.. PICC line in place. Will need IV antibiotics x4 weeks, followed by oral antibiotics x2 weeks. Diabetes mellitus type 2, with hyperglycemia Continue Accu-Cheks. Sliding scale insulin ordered, will adjust as needed. Essential hypertension Stable on home medications. Neuropathy This is likely secondary to alcohol use versus diabetes that has been uncontrolled. No B12 deficiency noted Ataxia May need an MRI to evaluate for cerebellar atrophy, if no improvement in symptoms. He may also need outpatient neurology followup. DVT prophylaxis: Lovenox GI prophylaxis: Protonix Diet: Diabetic Disposition: Pending symptomatic treatment. Continue IV antibiotics and to monitor for alcohol withdrawal symptoms. Ativan as needed. He is pending home set up for IV antibiotics. Physician Review: Patient Assessed, Agree with Above Assessment and Plan Time Spent Managing PTS Care (In Minutes): 35
[2018-08-22] MEDS: ZOLPIDEM TARTRATE 10 MG TABLET PO PRN (20:19)
[2018-08-22] MEDS: ROSUVASTATIN 10 MG TAB PO SCH (20:20)
[2018-08-23 05:27] LABS: Phosphorus 1.9 mg/dL (2.5-4.9); Potassium 3.5 mmol/L (3.5-5.1)
[2018-08-23] MEDS ORDERED: POTASSIUM PHOS IN 0.9 % NACL 15 MMOL/250 ML BAG IV ONE (06:01)
[2018-08-23] MEDS: METFORMIN HCL 500 MG TAB PO SCH ×2 (08:38→17:54)
[2018-08-23] MEDS: LOSARTAN/HCTZ 50-12.5 PO SCH (08:38)
[2018-08-23] MEDS: ENOXAPARIN 40 MG/0.4 ML SQ SCH (08:38)
[2018-08-23] MEDS: PROMOD 30 ML DOSE PO SCH ×2 (08:39→20:40)
[2018-08-23] MEDS: HOME MED 1 EA UNK (Empagliflozin [Jardiance] 10 MG) PO SCH (08:39)
[2018-08-23] MEDS: LOSARTAN POTASSIUM 50 MG TABLET PO SCH (08:39)
[2018-08-23] MEDS: chlordiazePOXIDE HCl 5 MG CAP PO SCH ×3 (08:39→20:39)
[2018-08-23] MEDS: PANTOPRAZOLE 40MG TABLET PO SCH (08:40)
[2018-08-23] MEDS: FOLIC ACID 1 MG, MULTIVITAMINS INJ 10 ML, THIAMINE HCL 100 MG in NA CHLORIDE 0.9% 1,000 ML IV SCH (09:34)
--- NOTE | 2018-08-23 10:49 | RAD REPORT ---
EXAM DESCRIPTION: MRI - Foot Left Wo Cont - 08/23/2018 10:33 am CLINICAL HISTORY: wound to left great toe Osteomyelitis COMPARISON: Foot Left 2 View dated 08/20/2018 FINDINGS: Poorly defined soft tissue thickening and edema is present involving the distal aspect of the left great toe. Small focal soft tissue defect is present anteriorly and inferiorly compatible wi th focal soft tissue wound. Abnormal diminished T1 and elevated T2/IR signal seen the distal aspect o f the distal phalanx of the great toe, most compatible with osteomyelitis. No drainable fluid collect ion is seen. Prominent calcaneal spur noted posteriorly. No fracture, dislocation or aggressive marro w lesion. Plantar fascia is intact. IMPRESSION: Mild osteomyelitis involving the distal left great toe with adjacent soft tissue irregul arity. No drainable fluid collection identified.
[2018-08-23] MEDS: VANCOMYCIN 1.5 GM in NA CHLORIDE 0.9% 500 ML IVPB SCH (14:36)
--- NOTE | 2018-08-23 14:58 | ECHO ---
HEIGHT: 5 ft 9 in WEIGHT: 187 lb 0 oz DATE OF STUDY: 08/23/[address]: Palmer Avalos MD 2-DIMENSIONAL: YES M.MODE: YES DOPPLER: YES COLOR FLOW: YES TDS: PORTABLE: DEFINITY: BUBBLE STUDY: DIAGNOSIS: SYNCOPE CARDIAC HISTORY: CATHERIZATION: NO SURGERY: NO PROSTHETIC VALVE: NO PACEMAKER: NO MEASUREMENTS (cm) DIASTOLIC (NORMALS) SYSTOLIC (NORMALS) IVSd 1.0 (0.6-1.2) LA Diam 4.6 (1.9-4.0) LVEF 77% LVIDd 4.5 (3.5-5.7) LVIDs 2.4 (2.0-3.5) %FS 46% LVPWd 1.1 (0.6-1.2) Ao Diam 3.0 (2.0-3.7) 2 DIMENSIONAL ASSESSMENT: RIGHT ATRIUM: NORMAL LEFT ATRIUM: DILATED RIGHT VENTRICLE: NORMAL LEFT VENTRICLE: NORMAL TRICUSPID VALVE: NORMAL MITRAL VALVE: NORMAL PULMONIC VALVE: NORMAL AORTIC VALVE: NORMAL PERICARDIAL EFFUSION: NONE AORTIC ROOT: NORMAL LEFT VENTRICULAR WALL MOTION: NORMAL DOPPLER/COLOR FLOW: NORMAL COMMENTS: NORMAL LEFT EJECTION FRACTION. DILATED LEFT ATRIUM. OTHERWISE NORMAL TWO DIMENSIONAL ECHOCARDIOGRAM WITH DOPPLER. TECHNOLOGIST: LUIS GIL
--- NOTE | 2018-08-23 19:17 | P.DS ---
Admission Date: 08/19/18 Discharge Date: 08/23/18 Disposition: ROUTINE DISCHARGE Discharge Condition: GOOD Reason for Admission: Syncope/fall/alcohol abuse Brief History of Present Illness: patient is a 63-year-old gentleman who was getting out of bed and completely passed out. He suffered a head laceration. Patient states he had similar episode in the past. He is a heavy drinker and has been drinking heavily for many years. He is also a diabetic and was diagnosed with diabetes only 7 years ago. 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 He could also have her neuropathy related to B12 deficiency. Patient will need to be admitted to the hospital and workup for his syncopal episode. We will do an Echocardiogram and carotid Doppler to further evaluate. He may need MRI to evaluate for cerebellar atrophy as the cause of his ataxia as he has had many years of alcohol use and abuse. He will need to be monitored for arrhthymia and will need follow-up with neurology for EMG. Hospital Course: Syncope and collapse No further episodes in the hospital. This could likely be secondary to alcohol abuse. Echocardiogram was done, which was normal. Alcohol abuse Patient with a history of heavy alcohol usage. Counseled extensively on cessation He was given banana bag, multi vitamins and folic acid. He was also given Librium and Ativan as needed though he did not require any Ativan. No withdrawal symptoms noted while patient was admitted in the hospital. Left great toe wound, chronic and non-healing Patient with an open ulcer on left great toe. Per patient, he noticed about a month ago though he does not feel anything there due to his neuropathy. He is unsure how or when he got this wound. Left foot x-ray, MRI with evidence of bone involvement/mild to moderate osteomyelitis. Arterial studies without any blockage for stenosis. He was started on IV vancomycin, PICC line was placed. He will be discharged to a intermediate facility for IV antibiotics x4 weeks, followed by oral antibiotics x2 weeks. Diabetes mellitus type 2, with hyperglycemia This remains stable. No medication changes made to patient's regimen on discharge Essential hypertension Stable on home medications. Neuropathy This is likely secondary to alcohol use versus diabetes that has been uncontrolled. No B12 deficiency noted Neurology information given to patient for outpatient follow up for possible MRI /further workup for his neuropathy and ataxia. At the time of discharge, patient was alert oriented x3 hemodynamically stable, symptom-free. He is tolerating a regular diet and he had no concerns or complaints. All questions were answered, patient verbalized understanding. He was discharged to a intermediate facility for IV antibiotics. Vital Signs/Physical Exam: Temp Pulse Resp BP Pulse Ox 97.7 F 68 20 153/65 H 99 08/23/18 16:00 08/23/18 16:00 08/23/18 16:00 08/23/18 16:00 08/23/18 16:00 General: Alert, In no apparent distress HEENT: Atraumatic, PERRLA, EOMI Neck: Supple, JVD not distended Respiratory: Clear to auscultation bilaterally, Normal air movement Cardiovascular: Regular rate/rhythm, Normal S1 S2 Gastrointestinal: Normal bowel sounds, No tenderness Musculoskeletal: No tenderness Integumentary: No rashes Neurological: Normal speech, Normal tone, Normal affect Lymphatics: No axilla or inguinal lymphadenopathy Laboratory Data at Discharge: WBC 4.7 K/uL (4.3-10.9) D 08/20/18 10:55 Hgb 11.3 g/dL (13.6-17.9) L 08/20/18 10:55 Hct 32.0 % (39.6-49.0) L 08/20/18 10:55 Plt Count 170 K/uL (152-406) 08/20/18 10:55 PT 11.7 SECONDS (9.5-12.5) 08/20/18 05:27 INR 0.99 08/20/18 05:27 APTT 30.0 SECONDS (24.3-36.9) 08/20/18 05:27 Sodium 143 mmol/L (136-145) 08/23/18 04:35 Potassium 3.5 mmol/L (3.5-5.1) 08/23/18 04:35 BUN 20 mg/dL (7-18) H 08/23/18 04:35 Creatinine 1.30 mg/dL (0.55-1.3) 08/23/18 04:35 Glucose 128 mg/dL (74-106) H 08/23/18 04:35 Phosphorus 1.9 mg/dL (2.5-4.9) L 08/23/18 04:35 Magnesium 2.1 mg/dL (1.8-2.4) D 08/20/18 10:55 Total Bilirubin 1.3 mg/dL (0.2-1.0) H 08/20/18 05:27 AST 131 U/L (15-37) H 08/20/18 05:27 ALT 64 U/L (12-78) 08/20/18 05:27 Alkaline Phosphatase 115 U/L (45-117) 08/20/18 05:27 Home Medications: Empagliflozin [Jardiance] 10 mg PO DAILY 08/20/18 Losartan/Hydrochlorothiazide [Losartan-Hctz 100-12.5 mg Tab] 1 each PO DAILY Metformin HCl 500 mg PO BID 08/20/18 Pantoprazole Sodium 40 mg PO DAILY 08/20/18 Rosuvastatin Calcium 10 mg PO DAILY 08/20/18 Zolpidem Tartrate 10 mg PO PRN 08/20/18 Patient Discharge Instructions: Please follow up with the primary care physician in 1 week. Please follow up with neurology as an outpatient in 2-3 weeks. Information provided Diet: Regular Activity: Ad cynthia Physician Review: Patient Assessed, Agree with Above Assessment and Plan Time spent managing pt's care (in minutes): 55
[2018-08-23] MEDS: ZOLPIDEM TARTRATE 10 MG TABLET PO PRN (20:39)
[2018-08-23] MEDS: ROSUVASTATIN 10 MG TAB PO SCH (20:39)
[2018-08-24 05:44] LABS: Phosphorus 2.1 mg/dL (2.5-4.9); Potassium 3.6 mmol/L (3.5-5.1)
[2018-08-24] MEDS: ENOXAPARIN 40 MG/0.4 ML SQ SCH (08:35)
[2018-08-24] MEDS: METFORMIN HCL 500 MG TAB PO SCH (08:36)
[2018-08-24] MEDS: LOSARTAN/HCTZ 50-12.5 PO SCH (08:37)
[2018-08-24] MEDS: HOME MED 1 EA UNK (Empagliflozin [Jardiance] 10 MG) PO SCH (08:38)
[2018-08-24] MEDS: LOSARTAN POTASSIUM 50 MG TABLET PO SCH (08:38)
[2018-08-24] MEDS: PANTOPRAZOLE 40MG TABLET PO SCH (08:39)
[2018-08-24] MEDS: FOLIC ACID 1 MG, MULTIVITAMINS INJ 10 ML, THIAMINE HCL 100 MG in NA CHLORIDE 0.9% 1,000 ML IV SCH (08:44)
[2018-08-24] MEDS: PROMOD 30 ML DOSE PO SCH (08:44)
[2018-08-24] MEDS ORDERED: POTASSIUM 25 MEQ EFFERV TAB PO ONE (09:00)
[2018-08-24] MEDS: chlordiazePOXIDE HCl 5 MG CAP PO SCH ×2 (09:50→13:59)
[2018-08-24 10:04] VITALS: O2SAT 98
[2018-08-24] MEDS: VANCOMYCIN 1.5 GM in NA CHLORIDE 0.9% 500 ML IVPB SCH (13:59)
[2018-08-24 17:11] VITALS: BP 139/72; TEMP 97
--- NOTE | 2018-08-24 17:46 | P.PN ---
Subjective Date of Service: 08/24/18 Chief Complaint: Syncope/fall/alcohol abuse Subjective: No new changes Patient seen and examined. Chart reviewed and case discussed with RN. No acute events overnight. Patient is accepted to [address] [place] [address]. Spoke with infectious disease doctor who will follow patient at [address] [place] [address] for wound care. at the bedside. Treatment plan explained all questions answered. Review of Systems 10-point ROS is otherwise unremarkable Musculoskeletal: As per HPI Physical Examination - Vital Signs Temperature: 97 F Blood Pressure: 139/72 Pulse: 68 Respirations: 20 Pulse Ox (%): 100 - Physical Exam General: Alert, In no apparent distress, Oriented x3 HEENT: Atraumatic, PERRLA, EOMI Neck: Supple, JVD not distended Respiratory: Clear to auscultation bilaterally, Normal air movement Cardiovascular: No edema, Normal pulses, Regular rate/rhythm, Normal S1 S2 Gastrointestinal: Normal bowel sounds, Soft and benign, Non-distended, No tenderness Musculoskeletal: No tenderness Integumentary: No rashes, No erythema, Other (Left 1st toe ulceration dry plantar aspect) Neurological: Normal speech, Normal strength at 5/5 x4 extr, Normal tone, Cranial nerves 3-12 intact, Normal affect - Studies Laboratory Tests 08/19/18 08/19/18 08/19/18 19:15 19:15 19:15 WBC 6.1 RBC 3.63 L Hgb 13.6 Hct 39.0 L MCV 107.3 H MCH 37.3 H MCHC 34.8 RDW 14.5 Plt Count 225 MPV 9.1 Neutrophils % 79.2 H Lymphocytes % 12.5 L Monocytes % 7.8 Eosinophils % 0.2 Basophils % 0.3 Absolute Neutrophils 4.8 Absolute Lymphocytes 0.8 Absolute Monocytes 0.5 Absolute Eosinophils 0.0 Absolute Basophils 0.0 Clumped Platelets Noted Macrocytosis 1+ Morphology Comment Not seen PT 11.4 INR 0.97 Sodium 129 L Potassium 3.4 L Chloride 87 L Carbon Dioxide 26 BUN 26 H Creatinine 2.60 H Estimated GFR 25 L Glucose 213 H Calcium 8.8 Magnesium 1.7 L Total Bilirubin 1.3 H Direct Bilirubin 0.9 H AST 168 H ALT 75 Alkaline Phosphatase 136 H Rapid Troponin I < 0.02 NT-Pro-B Natriuret Pep 269 H Serum Total Protein 7.8 Albumin 4.1 Globulin 3.7 H Albumin/Globulin Ratio 1.1 Plasma/Serum Alcohol 08/19/18 08/19/18 19:15 20:35 WBC RBC Hgb Hct MCV MCH MCHC RDW Plt Count MPV Neutrophils % Lymphocytes % Monocytes % Eosinophils % Basophils % Absolute Neutrophils Absolute Lymphocytes Absolute Monocytes Absolute Eosinophils Absolute Basophils Clumped Platelets Macrocytosis Morphology Comment PT INR Sodium Potassium Chloride Carbon Dioxide BUN Creatinine Estimated GFR Glucose Calcium Magnesium Total Bilirubin Direct Bilirubin AST ALT Alkaline Phosphatase Rapid Troponin I NT-Pro-B Natriuret Pep Serum Total Protein Albumin Globulin Albumin/Globulin Ratio Plasma/Serum Alcohol 217 H 196 H Medications List Reviewed: Yes Assessment And Plan - Plan Syncope and collapse No further episodes in the hospital. This could likely be secondary to alcohol abuse. Echocardiogram was done, which was normal. Ambulating without difficulty Alcohol abuse Patient with a history of heavy alcohol usage. Counseled extensively on cessation He was given banana bag, multi vitamins and folic acid. He was also given Librium and Ativan as needed though he did not require any Ativan. No withdrawal symptoms noted while patient was admitted in the hospital. Left great toe wound, chronic and non-healing Patient with an open ulcer on left great toe. Left foot x-ray, MRI with evidence of bone involvement/mild to moderate osteomyelitis. Arterial studies without any blockage for stenosis. Continue IV vancomycin, PICC line was placed. He will be discharged to a [facility] facility for IV antibiotics x4 weeks, followed by oral antibiotics x2 weeks. Infectious disease consultants. Agrees with treatment plan. Will follow along at long term Diabetes mellitus type 2, with hyperglycemia This remains stable. No medication changes made to patient's regimen on discharge Essential hypertension Stable on home medications. Neuropathy This is likely secondary to alcohol use versus diabetes that has been uncontrolled. No B12 deficiency noted Neurology information given to patient for outpatient follow up for possible MRI /further workup for his neuropathy and ataxia. Discharge Plan: [facility] - Code Status/Comfort Care Code Status Assessed: Yes Physician Review: Patient Assessed, Agree with Above Assessment and Plan Time Spent Managing PTS Care (In Minutes): 41
--- NOTE | 2018-08-24 21:52 | CON ---
Subjective: This is a 63-year-old male coming in, I was consulted for left great toe osteomyelitis a nd diabetic foot ulcer. The patient denies any headache, nausea, vomiting, chest pain, abdominal luz n, constipation, or diarrhea. He is going to be transferred to [facility] facility. Past Medical History: Hypertension, diabetes, alcohol abuse, cholecystectomy. Social History: Tobacco positive. Alcohol positive. Family History: Noncontributory. Medications: Vancomycin. Review of Systems: A 10-point review was performed. Allergies: TYLENOL. Physical Examination: General: This is a 63-year-old male, lying in bed, not in any acute cardiopulmonary distress. Vital Signs: Temperature 97, pulse 69, respirations 18, blood pressure 159/71. HEENT: Unremarkable. Neck: Supple. Lungs: Basal crackles. Heart: S1, S2. Regular. Abdomen: Soft, nontender. Bowel sounds positive. Extremity: Left foot big toe with ulceration about 1 x 1 x 0.3 cm. Laboratory Data: WBC 4.7, hemoglobin 11.3, platelets 170. Chemistry shows sodium 143, potassium 3.6 , chloride 110, bicarb 27, BUN 18, creatinine 1.2, glucose 125. Microbiology Data: Urine culture is mixed cecelia, most likely contaminant. Assessment And Plan: Left foot big toe osteomyelitis and diabetic foot ulcer. Recommend to start e patient on Medihoney with alginate Thursday, Thursday, Thursday. Keep leg elevated. We will follow t he patient closely. Total course of antibiotics 6 weeks. NF/MODL Voice ID: [id number] Report ID: [id number]
== END 2018-08-24 16:33 | DRG 312 ==
LOC: ER 18:29 → ERHOLD 20:46 → 2ND 08-20 04:11
PROVIDERS: ADMIT Hospitalist; ATTEND Hospitalist
PROC: 0JQ13ZZ Repair Face Subcutaneous Tissue and Fascia, Percutaneous Approach (ICD-10-PCS; principal; 2018-08-19)
DX: R55 Syncope and collapse (principal); M86.8X8 Other osteomyelitis, other site; F10.10 Alcohol abuse, uncomplicated; E11.69 Type 2 diabetes mellitus with other specified complication; E11.65 Type 2 diabetes mellitus with hyperglycemia; E11.621 Type 2 diabetes mellitus with foot ulcer; L97.529 Non-pressure chronic ulcer of other part of left foot with unspecified severity; I10 Essential (primary) hypertension; G62.1 Alcoholic polyneuropathy; E11.40 Type 2 diabetes mellitus with diabetic neuropathy, unspecified; R27.0 Ataxia, unspecified; S01.21XA Laceration without foreign body of nose, initial encounter; W18.39XA Other fall on same level, initial encounter; Y92.009 Unspecified place in unspecified non-institutional (private) residence as the place of occurrence of the external cause
CPT/HCPCS: 36415; 70450; 71045; 72125; 80048; 80053; 80076; 80202; 80320; 81003; 81015; 82607; 82746; 82962; 83735; 83880; 84100; 84484; 85025; 85610; 85730; 87086; 87088; 93005; 93306; 93926; 96365; 96366; 99285; J1650; J3411; J3475; J7030

== ENCOUNTER 2019-01-04 18:37 | Emergency (ER) | payer OTHER ==
[2019-01-04 19:23] LABS: Absolute Lymphocytes (CBC) 1.1 K/uL (0.7-4.9); Absolute Monocytes 0.3 K/uL (0.1-1.3); Absolute Neutrophil 2.7 K/uL (1.8-8.0); Basophils % 0.3 % (0-1.3); Eosinophils % 1.2 % (0-4.4); Hematocrit 35.6 % (39.6-49.0); Lymphocytes % 27.1 % (15.3-44.8); MPV 7.5 fL (7.6-11.3); Monocytes % 7.6 % (3.3-12.3); RBC Red Blood Cell Count 3.68 M/uL (4.33-5.43)
[2019-01-04 19:24] LABS: Protime INR 0.95
[2019-01-04] MEDS ORDERED: D50W 25 GM/50 ML SYRINGE IV ONE (19:25)
[2019-01-04] MEDS ORDERED: LIDOCAINE 1% W/EPI 1:100,000 MDV 50 ML VIAL ONE (19:33)
[2019-01-04 19:48] LABS: ALT/SGPT 98 U/L (12-78); AST/SGOT 73 U/L (15-37); Albumin 4.3 g/dL (3.4-5.0); Alkaline Phosphatase 117 U/L (45-117); BUN Blood Urea Nitrogen 38 mg/dL (7-18); Bicarbonate 31 mmol/L (21-32); Bilirubin Direct 0.2 mg/dL (0-0.2); Bilirubin Total 0.4 mg/dL (0.2-1.0); Glucose Level 61 mg/dL (74-106); Magnesium 1.8 mg/dL (1.8-2.4); NT PRO-BNP 158 pg/mL (<125); Potassium 3.8 mmol/L (3.5-5.1); Protein, Total 8.1 g/dL (6.4-8.2); Sodium Level 134 mmol/L (136-145); Troponin (Emerg Dept Use Only) < 0.02 ng/mL (0.0-0.045)
[2019-01-04] MEDS ORDERED: MULTIVITAMINS 10 ML VIAL (INJ) IV ONE (19:50)
[2019-01-04] MEDS ORDERED: THIAMINE 200 MG/2 ML INJ ONE (19:50)
[2019-01-04] MEDS ORDERED: NA CHLORIDE 0.9% 1,000 ML ONE (19:50)
--- NOTE | 2019-01-04 19:50 | RAD REPORT ---
EXAM DESCRIPTION: CT - Head Brain Wo Cont - 01/04/2019 7:31 pm CLINICAL HISTORY: Weakness, syncope, multiple falls COMPARISON: None. TECHNIQUE: Axial 5 mm thick images of the head were obtained without IV contrast. All CT scans are performed using dose optimization technique as appropriate and may include automated exposure control or mA/KV adjustment according to patient size. FINDINGS: No intracranial hemorrhage, mass, edema or shift of mid-line structures. No acute infarcti on changes seen. No abnormal extra-axial fluid collections. Mild to moderate for age atrophy changes are present. Chronic ischemic changes minimal. Ventricles are in proportion to the volume loss. Mastoid air cells and visualized portions of the paranasal sinuses are clear. No acute bony findings. IMPRESSION: Negative non-contrast CT head examination for acute finding.
[2019-01-04] MEDS ORDERED: FOLIC ACID 5 MG/ML VIAL ONE (19:51)
--- NOTE | 2019-01-04 20:12 | RAD REPORT ---
EXAM DESCRIPTION: RAD - Chest Single View - 01/04/2019 7:53 pm CLINICAL HISTORY: Shortness of breath, hypertension, weakness COMPARISON: July 2018 TECHNIQUE: AP portable chest image was obtained 1923 hours . FINDINGS: Lungs are clear. Heart and vasculature are normal. No measurable pleural effusion and no p neumothorax. No acute bony abnormality seen. No acute aortic findings suspected. IMPRESSION: No acute cardiopulmonary process. No significant interval change.
[2019-01-04 20:13] LABS: Urine Blood TRACE (NEG); Urine Glucose NEGATIVE (NEG); Urine Protein NEGATIVE (NEG); Urine Specific Gravity <1.005 (1.005-1.030); Urine pH 5.5 (5.0-7.0)
--- NOTE | 2019-01-04 21:42 | ER ---
Nurse's Notes [facility] Name: Shreyas Mckeon Age: 63 yrs Sex: Male : 1955 Arrival Date: 01/04/2019 Time: 18:38 Bed 7 Private MD: Diagnosis: Weakness Presentation: 01/04 18:46 Presenting complaint: states: "I am just worried about him because he is weak and aa5 falling frequently over the last few weeks". Pt currently A\\T\\O x 4. Pt states "I drink Vodka everyday for years". Pt's states "he keeps saying his sugar goes low during the night but he doesn't eat, he just drinks muscle milk to help his foot wound heal". Transition of care: patient was not received from another setting of care. Care prior to arrival: None. 18:46 Method Of Arrival: Wheelchair aa5 18:46 Acuity: FRIDA 3 aa5 18:46 Onset of symptoms was December 2018. aa5 Historical: - Allergies: 18:49 ACETAMINOPHEN; aa5 - PMHx: 18:49 Diabetes - NIDDM; Hypertension; Left foot wound; aa5 - PSHx: 18:49 None; aa5 - Immunization history:: Adult Immunizations unknown. - Social history:: Patient/guardian denies using alcohol, street drugs, The patient lives with family. - Ebola Screening: : No symptoms or risks identified at this time. - Family history:: not pertinent. Screenin:15 Abuse screen: Denies threats or abuse. Denies injuries from another. Nutritional aa1 screening: No deficits noted. Tuberculosis screening: No symptoms or risk factors identified. Fall Risk IV access (20 points). Assessment: 19:15 General: Appears in no apparent distress. comfortable, Behavior is calm, cooperative, aa1 appropriate for age. Pain: Denies pain. Neuro: Level of Consciousness is awake, alert, obeys commands, Oriented to person, place, time, situation, Moves all extremities. Full function Speech is normal, Facial symmetry appears normal, Pupils are PERRLA, Intact. Cardiovascular: Reports fatigue, Denies chest pain, diaphoresis, nausea, palpitations, shortness of breath, Heart tones S1 S2 present Rhythm is regular. Respiratory: Airway is patent Respiratory effort is even, unlabored, Respiratory pattern is regular, symmetrical. GI: No signs and/or symptoms were reported involving the gastrointestinal system. : No signs and/or symptoms were reported regarding the genitourinary system. EENT: No signs and/or symptoms were reported regarding the EENT system. Derm: Skin is intact, is healthy with good turgor, Skin is pink, warm \\T\\ dry. Musculoskeletal: Circulation, motion, and sensation intact. Capillary refill < 3 seconds. 20:08 Reassessment: Patient appears in no apparent distress at this time. Patient and/or aa1 family updated on plan of care and expected duration. Pain level reassessed. Patient is alert, oriented x 3, equal unlabored respirations, skin warm/dry/pink. Awaiting CT results. 21:23 Reassessment: Patient appears in no apparent distress at this time. Patient and/or aa1 family updated on plan of care and expected duration. Pain level reassessed. Patient is alert, oriented x 3, equal unlabored respirations, skin warm/dry/pink. Awaiting completion of banana bag for d/c. 22:05 Reassessment: Patient appears in no apparent distress at this time. Patient is alert, aa1 oriented x 3, equal unlabored respirations, skin warm/dry/pink. Mother at the bedside. Discussed d/c \\T\\ f/u instructions with pt. Pt's on her way to pick him up. Denies questions or concerns at this time. Patient denies pain at this time. Patient states feeling better. Vital Signs: 18:51 BP 114 / 64; Pulse 75; Resp 18 S; Temp 98.3(TE); Pulse Ox 96% on R/A; Weight 86.18 kg aa5 (R); Height 5 ft. 9 in. (175.26 cm) (R); Pain 0/10; 20:08 BP 104 / 61; Pulse 65; Resp 16; Pulse Ox 95% on R/A; Pain 0/10; aa1 21:23 BP 112 / 60; Pulse 66; Resp 16; Pulse Ox 95% on R/A; Pain 0/10; aa1 18:51 Body Mass Index 28.06 (86.18 kg, 175.26 cm) aa5 ED Course: 18:38 Patient arrived in ED. as 18:49 Triage completed. aa5 18:49 Arm band placed on. aa5 18:59 Alzahri, Mohammad, MD is Attending Physician. ma2 19:[address] vm2 19:15 Patient has correct armband on for positive identification. Bed in low position. Call aa1 light in reach. pt refused gown. security monitor on. Pulse ox on. NIBP on. 19:27 Vidhya Vela, RN is Primary Nurse. aa1 19:29 CT completed. Patient tolerated procedure well. Patient moved back from CT. mi 19:30 Inserted saline lock: 20 gauge in right antecubital area, using aseptic technique. oe Blood collected. 19:31 CT Head Brain wo Cont In Process Unspecified. EDMS 19:52 XRAY Chest (1 view) In Process Unspecified. EDMS 22:05 No provider procedures requiring assistance completed. IV discontinued, intact, aa1 bleeding controlled, No redness/swelling at site. Pressure dressing applied. Administered Medications: 19:29 Drug: D50W 50 ml Route: IVP; Site: right antecubital; aa1 22:02 Follow up: Response: No adverse reaction; Blood sugar is elevated aa1 19:48 Drug: Banana Bag - (NS 0.9% 1000 ml, foLIC Acid 1 mg, Thiamine 100 mg, Multivitamin 1 aa1 amp) Route: IV; Rate: calculated rate; Site: right antecubital; 22:03 Follow up: IV Status: Completed infusion aa1 Point of Care Testing: Blood Glucose: 19:01 Blood Glucose: 64 mg/dL; aa5 22:04 Blood Glucose: 94 mg/dL; aa1 19:01 Dr. Erickson notified aa5 Ranges: Outcome: 21:41 Discharge ordered by . ma2 22:05 Discharged to home via wheelchair, with significant other. aa1 22:05 Condition: good 22:05 Discharge instructions given to patient, Instructed on discharge instructions, follow up and referral plans. Demonstrated understanding of instructions, follow-up care. 22:08 Patient left the ED. aa1 Signatures: Dispatcher [employer] EDVidhya Adler, BRICE RN aa1 Emily Fortune Audri, RN RN aa5 Alvaro Pierce [place] oe [place], [facility] Palmer Erickson MD MD hi2 Corrections: (The following items were deleted from the chart) 18:51 18:46 Presenting complaint: states: "I am just worried about him because he is aa5 weak and falling frequently over the last few weeks". Pt currently A\\T\\O x 4. Pt states "I drink Vodka everyday". Pt's states "he keeps saying his sugar goes low during the night but he doesn't eat, he just drinks muscle milk to help his foot wound heal" aa5 23:00 22:53 Patient left the ED. aa1 aa1
--- NOTE | 2019-01-04 21:42 | EDPHYS ---
Physician Documentation [facility] Name: hSreyas Mckeon Age: 63 yrs Sex: Male : 1955 Arrival Date: 01/04/2019 Time: 18:38 Bed 7 Private MD: ED Physician Palmer Erickson HPI: 01/04 19:54 This 63 yrs old Male presents to ER via Wheelchair with complaints of Alcohol ma2 Abuse, Weakness. 19:54 Onset: The symptoms/episode began/occurred gradually, 3 week(s) ago. Associated signs ma2 and symptoms: Pertinent negatives: chills, fever, neck stiffness, seizure, double vision, loss of vision. Severity of symptoms: At their worst the symptoms were very mild in the emergency department the symptoms have resolved. The patient has not experienced similar symptoms in the past. 19:55 patient is aware alert oriented x 4, states he is aware of his heavy drinking, he had a ma2 drink this morning, not slurred. not in withdrawal. does not smell alcohol, no SI or HI, he states has no compliant and would like to go home . Historical: - Allergies: 18:49 ACETAMINOPHEN; aa5 - PMHx: 18:49 Diabetes - NIDDM; Hypertension; Left foot wound; aa5 - PSHx: 18:49 None; aa5 - Immunization history:: Adult Immunizations unknown. - Social history:: Patient/guardian denies using alcohol, street drugs, The patient lives with family. - Ebola Screening: : No symptoms or risks identified at this time. - Family history:: not pertinent. ROS: 19:54 Constitutional: Negative for fever, chills, and weight loss. ma2 19:54 All other systems are negative. Exam: 19:54 Constitutional: This is a well developed, well nourished patient who is awake, alert, ma2 and in no acute distress. Chest/axilla: Normal chest wall appearance and motion. Nontender with no deformity. No lesions are appreciated. Cardiovascular: Regular rate and rhythm with a normal S1 and S2. No gallops, murmurs, or rubs. Normal PMI, no JVD. No pulse deficits. Respiratory: Lungs have equal breath sounds bilaterally, clear to auscultation and percussion. No rales, rhonchi or wheezes noted. No increased work of breathing, no retractions or nasal flaring. Abdomen/GI: Soft, non-tender, with normal bowel sounds. No distension or tympany. No guarding or rebound. No evidence of tenderness throughout. MS/ Extremity: Pulses equal, no cyanosis. Neurovascular intact. Full, normal range of motion. Neuro: Awake and alert, GCS 15, oriented to person, place, time, and situation. Cranial nerves II-XII grossly intact. Motor strength 5/5 in all extremities. Sensory grossly intact. Cerebellar exam normal. Normal gait. Vital Signs: 18:51 BP 114 / 64; Pulse 75; Resp 18 S; Temp 98.3(TE); Pulse Ox 96% on R/A; Weight 86.18 kg aa5 (R); Height 5 ft. 9 in. (175.26 cm) (R); Pain 0/10; 20:08 BP 104 / 61; Pulse 65; Resp 16; Pulse Ox 95% on R/A; Pain 0/10; aa1 21:23 BP 112 / 60; Pulse 66; Resp 16; Pulse Ox 95% on R/A; Pain 0/10; aa1 18:51 Body Mass Index 28.06 (86.18 kg, 175.26 cm) aa5 MDM: 18:59 Patient medically screened. ma2 19:54 Data reviewed: vital signs, nurses notes, lab test result(s). hi2 20:53 Counseling: I had a detailed discussion with the patient and/or guardian regarding: the [facility] historical points, exam findings, and any diagnostic results supporting the discharge/admit diagnosis, the presence of at least one elevated blood pressure reading (>120/80) during this emergency department visit, the need for outpatient follow up. Response to treatment: the patient's symptoms have markedly improved after treatment. 01/04 19:01 Order name: Basic Metabolic Panel; Complete Time: 20:10 [facility] 01/04 19:01 Order name: CBC with Diff; Complete Time: 20:10 hi2 01/04 19:01 Order name: LFT's; Complete Time: 20:10 hi2 01/04 19:01 Order name: Magnesium; Complete Time: 20:10 [facility] 01/04 19:01 Order name: NT PRO-BNP; Complete Time: 20:10 [facility] 01/04 19:01 Order name: PT-INR; Complete Time: 20:10 ma2 01/04 19:01 Order name: Troponin (emerg Dept Use Only); Complete Time: 20:10 ma2 01/04 19:01 Order name: XRAY Chest (1 view); Complete Time: 20:52 ma2 01/04 19:01 Order name: EKG; Complete Time: 19:02 ma2 01/04 19:01 Order name: CT Head Brain wo Cont; Complete Time: 20:10 ma2 01/04 19:12 Order name: Glucose, Ancillary Testing; Complete Time: 20:10 EDMS 01/04 19:55 Order name: Urine Dipstick--Ancillary (enter results); Complete Time: 20:52 ar5 01/04 19:01 Order name: Cardiac monitoring; Complete Time: 19:30 ma2 01/04 19:01 Order name: EKG - Nurse/Tech; Complete Time: 20:24 ma2 01/04 19:01 Order name: IV Saline Lock; Complete Time: 19:29 ma2 01/04 19:01 Order name: Labs collected and sent; Complete Time: 19:29 ma2 01/04 19:01 Order name: O2 Per Protocol; Complete Time: 19:30 ma2 01/04 19:01 Order name: O2 Sat Monitoring; Complete Time: 19:30 ma2 01/04 19:01 Order name: Urine Dipstick-Ancillary (obtain specimen); Complete Time: 19:47 ma2 Administered Medications: 19:29 Drug: D50W 50 ml Route: IVP; Site: right antecubital; aa1 22:02 Follow up: Response: No adverse reaction; Blood sugar is elevated aa1 19:48 Drug: Banana Bag - (NS 0.9% 1000 ml, foLIC Acid 1 mg, Thiamine 100 mg, Multivitamin 1 aa1 amp) Route: IV; Rate: calculated rate; Site: right antecubital; 22:03 Follow up: IV Status: Completed infusion aa1 Point of Care Testing: Blood Glucose: 19:01 Blood Glucose: 64 mg/dL; aa5 22:04 Blood Glucose: 94 mg/dL; aa1 19:01 Dr. Erickson notified aa5 Ranges: Critical Glucose Levels:Adult <50 mg/dl or >400 mg/dl <40 mg/dl or >180 mg/dl Disposition: 01/04/19 21:41 Discharged to Home. Impression: Weakness. - Condition is Stable. - Discharge Instructions: Alcohol Abuse and Nutrition, Weakness, [id number]. - Medication Reconciliation Form, Thank You Letter, Antibiotic Education, Prescription Opioid Use form. - Follow up: Private Physician; When: Tomorrow; Reason: Continuance of care. Signatures: Dispatcher [employer] EDVdihya Adler RN RN aa1 Tere Barriga RN RN aa5 Palmer Erickson MD MD ma2 Corrections: (The following items were deleted from the chart) 22:53 21:41 01/04/2019 21:41 Discharged to Home. Impression: Weakness. Condition is Stable. aa1 Forms are Medication Reconciliation Form, Thank You Letter, Antibiotic Education, Prescription Opioid Use. Follow up: Private Physician; When: Tomorrow; Reason: Continuance of care. ma2
[2019-01-04 23:01] VITALS: TEMP 98.3
[2019-01-04 23:02] VITALS: O2SAT 95
[2019-01-04 23:04] VITALS: BP 112/60
--- NOTE | 2019-01-05 10:48 | EKG ---
Test Date: 2019-01-04 Test Time: 19:41:04 Training Development Specialist: LASHONDA MEASUREMENT RESULTS: Intervals: Rate: 55 NM: QRSD: 100 QT: 414 QTc: 396 [place]: P: NM: QRS: 59 T: 30 INTERPRETIVE STATEMENTS: Atrial fibrillation with slow ventricular response Abnormal ECG Compared to ECG 08/19/2018 19:16:04 Sinus rhythm no longer present Ventricular premature complex(es) no longer present First degree AV block no longer present Myocardial infarct finding no longer present Electronically Signed On 01-05-19 10:47:48 CDT by Aston Hobbs
== END 2019-01-04 22:53 | disposition home or self-care (01) ==
LOC: ER 18:37
DX: R53.1 Weakness (principal); E11.9 Type 2 diabetes mellitus without complications; I10 Essential (primary) hypertension
CPT/HCPCS: 93005; 85025; 80048; 36415; 83735; 85610; 82962 ×2; 80076; 81003; 84484; 83880; 70450; 71045; J3411; J7030; 96365; 96366; 96375; 99285

== ENCOUNTER 2019-01-10 17:43 | Emergency (ER) | payer OTHER ==
[2019-01-10] MEDS ORDERED: NA CHLORIDE 0.9% 500 ML ONE (18:45)
[2019-01-10 18:57] LABS: Absolute Lymphocytes (CBC) 0.7 K/uL (0.7-4.9); Absolute Monocytes 0.6 K/uL (0.1-1.3); Absolute Neutrophil 5.6 K/uL (1.8-8.0); Basophils % 0.2 % (0-1.3); Eosinophils % 0.2 % (0-4.4); Hematocrit 36.1 % (39.6-49.0); Lymphocytes % 9.9 % (15.3-44.8); MPV 7.7 fL (7.6-11.3); RBC Red Blood Cell Count 3.71 M/uL (4.33-5.43)
[2019-01-10 18:58] LABS: Protime INR 0.98
[2019-01-10] MEDS ORDERED: NA CHLORIDE 0.9% 50 ML IV ONE (19:15)
[2019-01-10] MEDS ORDERED: LORazepam 2 MG/ML VIAL ONE (19:15)
[2019-01-10] MEDS ORDERED: THIAMINE 200 MG/2 ML INJ ONE (19:15)
[2019-01-10 19:21] LABS: Barbiturates NEGATIVE (NEGATIVE); Benzodiazepines NEGATIVE (NEGATIVE); Cocaine NEGATIVE (NEGATIVE); METHAMPHETAM NEGATIVE (NEGATIVE); Methadone NEGATIVE (NEGATIVE); Opiates NEGATIVE (NEGATIVE); Phencyclidine NEGATIVE (NEGATIVE); THC Cannibis NEGATIVE (NEGATIVE)
--- NOTE | 2019-01-10 19:28 | RAD REPORT ---
EXAM DESCRIPTION: Robert Single View01/10/2019 7:14 pm CLINICAL HISTORY: cough COMPARISON: none FINDINGS: The lungs appear clear of acute infiltrate. The heart is normal size IMPRESSION: No acute abnormalities displayed
[2019-01-10 19:48] LABS: Albumin 4.8 g/dL (3.4-5.0); Bilirubin Direct 0.4 mg/dL (0-0.2); Protein, Total 8.5 g/dL (6.4-8.2); Troponin (Emerg Dept Use Only) 0.02 ng/mL (0.0-0.045)
[2019-01-10 19:54] LABS: Magnesium 1.4 mg/dL (1.8-2.4)
[2019-01-10 20:13] LABS: Urine Blood TRACE (NEG); Urine Glucose NEGATIVE (NEG); Urine Protein 1+ (NEG); Urine pH 6.5 (5.0-7.0)
[2019-01-10] MEDS ORDERED: MAGNESIUM SULFATE 1 gm IVPB 1 GM/100 ML BAG IV ONE (20:17)
--- NOTE | 2019-01-10 21:14 | EDPHYS ---
Physician Documentation [facility] Name: Shreyas Mckeon Age: 63 yrs Sex: Male : 1955 Arrival Date: 01/10/2019 Time: 17:46 Bed 6 Private MD: Senthil Horne E ED Physician Jose Mckeon HPI: 01/10 18:31 This 63 yrs old Male presents to ER via EMS with complaints of Medication devan Withdrawal. 18:31 Ambien withdrawal. Onset: The symptoms/episode began/occurred 3 day(s) ago. Severity of devan symptoms: At their worst the symptoms were mild in the emergency department the symptoms are unchanged. The patient has not experienced similar symptoms in the past. Historical: - Allergies: 18:03 ACETAMINOPHEN; ss - PMHx: 18:03 Diabetes - NIDDM; Hypertension; Left foot wound; kidney disease; ss - PSHx: 18:03 Cholecystectomy; ss - Immunization history:: Adult Immunizations up to date. - Social history:: Smoking status: Patient/guardian denies using tobacco. - Ebola Screening: : Patient denies exposure to infectious person Patient denies travel to an Ebola-affected area in the 21 days before illness onset. - Family history:: not pertinent. ROS: 18:31 Constitutional: Negative for fever, chills, and weight loss, Eyes: Negative for injury, devan pain, redness, and discharge, ENT: Negative for injury, pain, and discharge, Neck: Negative for injury, pain, and swelling, Cardiovascular: Negative for chest pain, palpitations, and edema, Respiratory: Negative for shortness of breath, cough, wheezing, and pleuritic chest pain, Back: Negative for injury and pain, : Negative for injury, bleeding, discharge, and swelling, MS/Extremity: Negative for injury and deformity, Skin: Negative for injury, rash, and discoloration, Neuro: Negative for headache, weakness, numbness, tingling, and seizure, Psych: Negative for depression, anxiety, suicide ideation, homicidal ideation, and hallucinations, Allergy/Immunology: Negative for hives, rash, and allergies, Endocrine: Negative for neck swelling, polydipsia, polyuria, polyphagia, and marked weight changes, Hematologic/Lymphatic: Negative for swollen nodes, abnormal bleeding, and unusual bruising. 18:31 Abdomen/GI: Positive for nausea and vomiting. Exam: 18:31 Constitutional: This is a well developed, well nourished patient who is awake, alert, devan and in no acute distress. Head/Face: Normocephalic, atraumatic. Eyes: Pupils equal round and reactive to light, extra-ocular motions intact. Lids and lashes normal. Conjunctiva and sclera are non-icteric and not injected. Cornea within normal limits. Periorbital areas with no swelling, redness, or edema. ENT: Nares patent. No nasal discharge, no septal abnormalities noted. Tympanic membranes are normal and external auditory canals are clear. Oropharynx with no redness, swelling, or masses, exudates, or evidence of obstruction, uvula midline. Mucous membranes moist. Neck: Trachea midline, no thyromegaly or masses palpated, and no cervical lymphadenopathy. Supple, full range of motion without nuchal rigidity, or vertebral point tenderness. No Meningismus. Chest/axilla: Normal chest wall appearance and motion. Nontender with no deformity. No lesions are appreciated. Cardiovascular: Regular rate and rhythm with a normal S1 and S2. No gallops, murmurs, or rubs. Normal PMI, no JVD. No pulse deficits. Respiratory: Lungs have equal breath sounds bilaterally, clear to auscultation and percussion. No rales, rhonchi or wheezes noted. No increased work of breathing, no retractions or nasal flaring. Abdomen/GI: Soft, non-tender, with normal bowel sounds. No distension or tympany. No guarding or rebound. No evidence of tenderness throughout. Back: No spinal tenderness. No costovertebral tenderness. Full range of motion. Male : Normal genitalia with no discharge or lesions. Skin: Warm, dry with normal turgor. Normal color with no rashes, no lesions, and no evidence of cellulitis. MS/ Extremity: Pulses equal, no cyanosis. Neurovascular intact. Full, normal range of motion. Neuro: Awake and alert, GCS 15, oriented to person, place, time, and situation. Cranial nerves II-XII grossly intact. Motor strength 5/5 in all extremities. Sensory grossly intact. Cerebellar exam normal. Normal gait. Psych: Awake, alert, with orientation to person, place and time. Behavior, mood, and affect are within normal limits. Vital Signs: 18:03 BP 164 / 79; Pulse 86; Resp 18; Temp 98.8(TE); Pulse Ox 96% on R/A; Weight 88.45 kg; ss Height 5 ft. 9 in. (175.26 cm); Pain 0/10; 18:51 BP 150 / 69; Pulse 74 MON; Resp 15; Pulse Ox 97% ; sv 19:53 BP 143 / 74; Pulse 71; Resp 16; Temp 98.8; Pulse Ox 96% on R/A; ak1 21:40 BP 154 / 72; Pulse 78; Resp 18; Pulse Ox 95% on R/A; ea 18:03 Body Mass Index 28.80 (88.45 kg, 175.26 cm) ss 18:51 Sinus Rhythm sv MDM: 18:30 Patient medically screened. the [facility] 18:34 Data reviewed: vital signs, nurses notes, lab test result(s), EKG, radiologic studies, devan ultrasound. 19:29 ED course: Patient requesting medication for diarrhea for the past 2 days. Will give pm1 the patient some lomotil. 21:10 Data interpreted: Pulse oximetry: on room air is 96 %. Interpretation: normal. pm1 Counseling: I had a detailed discussion with the patient and/or guardian regarding: the historical points, exam findings, and any diagnostic results supporting the discharge/admit diagnosis, lab results, radiology results, the need for outpatient follow up, to return to the emergency department if symptoms worsen or persist or if there are any questions or concerns that arise at home. 01/10 18:31 Order name: Basic Metabolic Panel; Complete Time: 20:03 [facility] 01/10 18:31 Order name: CBC with Diff; Complete Time: 19:29 [facility] 01/10 18:31 Order name: LFT's; Complete Time: 20:03 [facility] 01/10 18:31 Order name: Magnesium; Complete Time: 20:03 [facility] 01/10 18:31 Order name: NT PRO-BNP; Complete Time: 20:03 [facility] 01/10 18:31 Order name: PT-INR; Complete Time: 19:29 [facility] 01/10 18:31 Order name: Troponin (emerg Dept Use Only); Complete Time: 20:03 [facility] 01/10 18:31 Order name: Urine Culture [facility] 01/10 18:43 Order name: Urine Dipstick--Ancillary (enter results); Complete Time: 20:35 01/10 18:53 Order name: Acetaminophen; Complete Time: 20:03 [facility] 01/10 18:53 Order name: ETOH Level; Complete Time: 20:03 [facility] 01/10 18:53 Order name: Ptt, Activated; Complete Time: 19:29 [facility] 01/10 18:53 Order name: Salicylate; Complete Time: 20:03 [facility] 01/10 18:53 Order name: Urine Drug Screen; Complete Time: 19:29 [facility] 01/10 18:31 Order name: XRAY Chest (1 view); Complete Time: 20:03 [facility] 01/10 18:31 Order name: EKG; Complete Time: 18:32 [facility] 01/10 18:31 Order name: Cardiac monitoring; Complete Time: 18:51 [facility] 01/10 18:31 Order name: EKG - Nurse/Tech; Complete Time: 18:51 [facility] 01/10 18:31 Order name: IV Saline Lock; Complete Time: 18:51 [facility] 01/10 18:31 Order name: Labs collected and sent; Complete Time: 18:51 [facility] 01/10 18:31 Order name: O2 Per Protocol; Complete Time: 18:51 [facility] 01/10 18:31 Order name: O2 Sat Monitoring; Complete Time: 18:51 [facility] 01/10 18:31 Order name: Urine Dipstick-Ancillary (obtain specimen); Complete Time: 18:48 [facility] Administered Medications: 18:53 Drug: NS 0.9% 500 ml Route: IV; Rate: bolus; Site: right forearm; sv 19:26 Follow up: IV Status: Completed infusion; IV Intake: 500ml ak1 18:54 CANCELLED (Duplicate Order): Thiamine 100 mg IV at calculated rate once sv 19:10 Drug: Thiamine 100 mg Route: IV; Rate: bolus; Site: right forearm; ak1 19:26 Follow up: IV Status: Completed infusion; IV Intake: 50ml ak1 19:10 Drug: Ativan 1 mg Route: IVP; Site: right forearm; ak1 19:27 Follow up: Response: No adverse reaction ak1 20:06 Not Given (not found in ER, provider verbal to cancel): LoMOTIL 1 tabs PO once ak1 20:11 Drug: Magnesium Sulfate 1 grams Route: IVPB; Infused Over: 1 hrs; Site: right forearm; ak1 21:11 Follow up: IV Status: Completed infusion; IV Intake: 100ml ak1 Disposition: 01/11 06:57 Co-signature as Attending Physician, Jose Mckeon MD I agree with the assessment and [facility] plan of care. Disposition: 01/10/19 21:13 Discharged to Home. Impression: Alcohol abuse. - Condition is Stable. - Discharge Instructions: Finding Treatment for Addiction, Alcohol Withdrawal, Alcohol Abuse and Nutrition. - Prescriptions for chlordiazepoxide HCl 25 mg Oral capsule - take 1 capsule by ORAL route 3 times per day; 15 capsule. Ambien 10 mg Oral Tablet - take 1 tablet by ORAL route At bedtime As needed; 20 tablet. - Medication Reconciliation Form, Thank You Letter, Antibiotic Education, Prescription Opioid Use form. - Follow up: Emergency Department; When: As needed; Reason: Worsening of condition. Follow up: Private Physician; When: 2 - 3 days; Reason: Recheck today's complaints, Continuance of care, Re-evaluation by your physician. - Problem is new. - Symptoms have improved. Signatures: Dispatcher [employer] Lianna Chang RN RN sv Anderson, Corey, MD MD cha Smirch, Shelby, RN RN ss Krenek, Amber, RN RN ak1 Donnie Henriquez, SENIOR PRODUCT DEVELOPMENT MANAGER SENIOR PRODUCT DEVELOPMENT MANAGER pm1 Corrections: (The following items were deleted from the chart) 01/10 18:54 18:52 Thiamine 100 mg IV at calculated rate once ordered. [facility] 22:17 21:13 01/10/2019 21:13 Discharged to Home. Impression: Alcohol abuse. Condition is ak1 Stable. Forms are Medication Reconciliation Form, Thank You Letter, Antibiotic Education, Prescription Opioid Use. Follow up: Emergency Department; When: As needed; Reason: Worsening of condition. Follow up: Private Physician; When: 2 - 3 days; Reason: Recheck today's complaints, Continuance of care, Re-evaluation by your physician. Problem is new. Symptoms have improved. pm1
--- NOTE | 2019-01-10 21:14 | ER ---
Nurse's Notes [facility] Name: Shreyas Mckeon Age: 63 yrs Sex: Male : 1955 Arrival Date: 01/10/2019 Time: 17:46 Bed 6 Private MD: Senthil Horne E Diagnosis: Alcohol abuse Presentation: 01/10 18:01 Presenting complaint: Patient states: Ran out of Ambien prescription approximately 1 ss week ago. Pt believes he may be having withdrawals because he is shaking and hasn't been feeling well the past 2-3 days. Transition of care: patient was not received from another setting of care. Onset of symptoms was January 08, 2019. Risk Assessment: Do you want to hurt yourself or someone else? Patient reports no desire to harm self or others. Initial Sepsis Screen: Does the patient meet any 2 criteria? No. Patient's initial sepsis screen is negative. Does the patient have a suspected source of infection? No. Patient's initial sepsis screen is negative. Care prior to arrival: None. 18:01 Method Of Arrival: EMS: [facility] 18:01 Acuity: FRIDA 3 ss Historical: - Allergies: 18:03 ACETAMINOPHEN; ss - PMHx: 18:03 Diabetes - NIDDM; Hypertension; Left foot wound; kidney disease; ss - PSHx: 18:03 Cholecystectomy; ss - Immunization history:: Adult Immunizations up to date. - Social history:: Smoking status: Patient/guardian denies using tobacco. - Ebola Screening: : Patient denies exposure to infectious person Patient denies travel to an Ebola-affected area in the 21 days before illness onset. - Family history:: not pertinent. Screenin:29 Abuse screen: Denies threats or abuse. Denies injuries from another. Nutritional sv screening: No deficits noted. Tuberculosis screening: No symptoms or risk factors identified. Fall Risk None identified. Assessment: 18:35 General: Appears in no apparent distress. uncomfortable, well developed, Behavior is sv cooperative, appropriate for age, anxious. General: Reports feeling ill for about a week. Pain: Denies pain. Neuro: Level of Consciousness is awake, alert, obeys commands, Oriented to person, place, time, situation, Moves all extremities. Full function Gait is steady, Speech is normal, Reports "I feel shaky.". Respiratory: Airway is patent Respiratory effort is even, unlabored, Respiratory pattern is regular, symmetrical. Derm: Skin is pink, warm \\T\\ dry. 22:16 Reassessment: Patient appears in no apparent distress at this time. No changes from ak1 previously documented assessment. Patient and/or family updated on plan of care and expected duration. Pain level reassessed. Patient is alert, oriented x 3, equal unlabored respirations, skin warm/dry/pink. pt sent to [facility] to wait for hospital provided taxi. pt with steady gait to ER [facility]. Vital Signs: 18:03 BP 164 / 79; Pulse 86; Resp 18; Temp 98.8(TE); Pulse Ox 96% on R/A; Weight 88.45 kg; ss Height 5 ft. 9 in. (175.26 cm); Pain 0/10; 18:51 BP 150 / 69; Pulse 74 MON; Resp 15; Pulse Ox 97% ; sv 19:53 BP 143 / 74; Pulse 71; Resp 16; Temp 98.8; Pulse Ox 96% on R/A; ak1 21:40 BP 154 / 72; Pulse 78; Resp 18; Pulse Ox 95% on R/A; ea 18:03 Body Mass Index 28.80 (88.45 kg, 175.26 cm) ss 18:51 Sinus Rhythm sv ED Course: 17:46 Patient arrived in ED. dl4 17:46 Senthil Horne MD is Private Physician. dl4 18:02 Triage completed. ss 18:03 Arm band placed on right wrist. ss 18:25 Lianna Valdes RN is Primary Nurse. sv 18:29 ED physician to see patient. sv 18:29 Patient has correct armband on for positive identification. Bed in low position. Call light in reach. 18:30 Jose Mckeon MD is Attending Physician. devan 18:40 Initial lab(s) drawn, by ma, sent to lab. Inserted saline lock: 20 gauge in right sv forearm, using aseptic technique. Blood collected. Flushed right forearm with 5 ml normal saline. 19:01 Donnie Henriquez NP is PHCP. pm1 19:02 Report given to Jena RN and Francia RN. sv 19:03 Report given to BRICE Bella and BRICE Feldman. tw2 19:04 Primary Nurse role handed off by Lianna Valdes RN 19:09 Jena Couch, RN is Primary Nurse. ak1 19:15 XRAY Chest (1 view) In Process Unspecified. EDMS 19:52 Notified Nurse Practitioner and/or Physician [place] Man of a critical lab result(s), 1.2 ak1 mag. 22:13 No provider procedures requiring assistance completed. IV discontinued, intact, ak1 bleeding controlled, No redness/swelling at site. Pressure dressing applied. Administered Medications: 18:53 Drug: NS 0.9% 500 ml Route: IV; Rate: bolus; Site: right forearm; sv 19:26 Follow up: IV Status: Completed infusion; IV Intake: 500ml ak1 18:54 CANCELLED (Duplicate Order): Thiamine 100 mg IV at calculated rate once sv 19:10 Drug: Thiamine 100 mg Route: IV; Rate: bolus; Site: right forearm; ak1 19:26 Follow up: IV Status: Completed infusion; IV Intake: 50ml ak1 19:10 Drug: Ativan 1 mg Route: IVP; Site: right forearm; ak1 19:27 Follow up: Response: No adverse reaction ak1 20:06 Not Given (not found in ER, provider verbal to cancel): LoMOTIL 1 tabs PO once ak1 20:11 Drug: Magnesium Sulfate 1 grams Route: IVPB; Infused Over: 1 hrs; Site: right forearm; ak1 21:11 Follow up: IV Status: Completed infusion; IV Intake: 100ml ak1 Intake: 19:26 IV: 50ml; Total: 50ml. ak1 19:26 IV: 500ml; Total: 550ml. ak1 21:11 IV: 100ml; Total: 650ml. ak1 Outcome: 21:13 Discharge ordered by . pm1 22:13 Discharged to home ambulatory, taxi provided by edmond Lazo RN ak1 22:13 Condition: good 22:13 Discharge instructions given to patient, Instructed on discharge instructions, follow up and referral plans. no drinking with medication, no driving heavy equipment, medication usage, Demonstrated understanding of instructions, follow-up care, medications, Prescriptions given X 2. 22:17 Patient left the ED. ak1 Signatures: Dispatcher [employer] EDMS Lianna Valdes RN RN sv Anderson, Corey, MD MD cha Smirch, Shelby, RN RN Jena Couch RN RN ak1 Donnie Henriquez, FILLING HAULER FILLING HAULER pm1 Mandy Moreno, RN RN tw2 Francia Ayala, RN RN Ceferino Garnett dl4
[2019-01-10 22:32] VITALS: TEMP 98.8
[2019-01-10 22:39] VITALS: BP 154/72; O2SAT 95
--- NOTE | 2019-01-11 05:48 | EKG ---
Test Date: 2019-01-10 Test Time: 18:48:11 Java Engineer: MELONY MEASUREMENT RESULTS: Intervals: Rate: 72 LA: 218 QRSD: 86 QT: 378 QTc: 413 [place]: P: -14 LA: 218 QRS: 7 T: 7 INTERPRETIVE STATEMENTS: Sinus rhythm with 1st degree AV block Possible Inferior infarct, age undetermined Abnormal ECG Compared to ECG 01/04/2019 19:41:04 First degree AV block now present Myocardial infarct finding now present Atrial fibrillation no longer present Electronically Signed On 01-11-19 05:47:30 CDT by Aston Hobbs
== END 2019-01-10 22:17 | disposition home or self-care (01) ==
LOC: ER 17:43
DX: F10.10 Alcohol abuse, uncomplicated (principal); I44.0 Atrioventricular block, first degree; R94.31 Abnormal electrocardiogram [ECG] [EKG]
CPT/HCPCS: 93005; 87088; 85025; 87086; 80048; 36415; 80320; 83735; 80329 ×2; 85610; 80076; 80307 ×8; 85730; 81003; 84484; 83880; 71045; J3411; J3475; 96365; 96367; 96375; 99284

== ENCOUNTER 2019-07-19 14:28 | Emergency (ER) | payer OTHER ==
[2019-07-19] MEDS ORDERED: FAMOTIDINE 20 MG/2 ML VIAL IV ONE (16:42)
[2019-07-19] MEDS ORDERED: LORazepam 2 MG/ML VIAL ONE (16:42)
[2019-07-19] MEDS ORDERED: ONDANSETRON 4 MG/2 ML VIAL ONE (16:42)
[2019-07-19] MEDS ORDERED: NA CHLORIDE 0.9% 1,000 ML ONE (16:43)
[2019-07-19 16:59] LABS: Absolute Lymphocytes (CBC) 0.5 K/uL (0.7-4.9); Basophils % 0.4 % (0-1.3); Hematocrit 34.1 % (39.6-49.0); Lymphocytes % 11.3 % (15.3-44.8); MPV 8.5 fL (7.6-11.3); RBC Red Blood Cell Count 3.39 M/uL (4.33-5.43)
[2019-07-19] MEDS ORDERED: FOLIC ACID 1 MG, MULTIVITAMINS INJ 10 ML, THIAMINE HCL 100 MG in NA CHLORIDE 0.9% 1,000 ML IV ONE (17:00)
[2019-07-19 17:02] LABS: Protime INR 1.03
[2019-07-19 17:12] LABS: Urine Blood NEGATIVE (NEG); Urine Glucose 1+ (NEG); Urine Protein NEGATIVE (NEG)
[2019-07-19 17:22] LABS: Barbiturates NEGATIVE (NEGATIVE); Benzodiazepines NEGATIVE (NEGATIVE); Cocaine NEGATIVE (NEGATIVE); METHAMPHETAM NEGATIVE (NEGATIVE); Methadone NEGATIVE (NEGATIVE); Opiates NEGATIVE (NEGATIVE); Phencyclidine NEGATIVE (NEGATIVE); THC Cannibis NEGATIVE (NEGATIVE)
[2019-07-19 17:27] LABS: Albumin 3.9 g/dL (3.4-5.0); Bilirubin Direct 0.4 mg/dL (0-0.2); Bilirubin Total 1.1 mg/dL (0.2-1.0); Potassium 4.7 mmol/L (3.5-5.1); Protein, Total 7.4 g/dL (6.4-8.2)
--- NOTE | 2019-07-19 17:31 | EKG ---
Test Date: 2019-07-19 Test Time: 16:55:54 Window Treatment Installer: IRENE MEASUREMENT RESULTS: Intervals: Rate: 64 [place]: 220 QRSD: 92 QT: 390 QTc: 402 [place]: P: 50 W[place]: 220 QRS: 79 T: 43 INTERPRETIVE STATEMENTS: Sinus rhythm with 1st degree AV block Otherwise normal ECG Compared to ECG 01/10/2019 18:48:11 Myocardial infarct finding no longer present Electronically Signed On 07-19-19 17:30:17 CDT by Aston Hobbs
[2019-07-19 17:50] LABS: Urine Bacteria NONE SEEN /HPF (NONE SEEN); Urine Culture Reflex Order NOT NEEDED; Urine RBC <5 /HPF (NONE SEEN)
--- NOTE | 2019-07-19 17:54 | RAD REPORT ---
EXAM DESCRIPTION: CT - Head Brain Wo Cont - 07/19/2019 5:40 pm CLINICAL HISTORY: Dizziness COMPARISON: December 2018 TECHNIQUE: Computed axial tomography of the head was obtained. IV contrast was not requested. All CT scans are performed using dose optimization technique as appropriate and may include automated exposure control or mA/KV adjustment according to patient size. FINDINGS: An intracranial bleed is not seen . The ventricles are normal in caliber. No extra-axial fluid collection is noted. Fluid within the sinuses/ mastoids is not seen. IMPRESSION: No acute intracranial abnormality is seen. If patient's symptoms persist MRI of the bra in would be recommended.
--- NOTE | 2019-07-19 20:18 | ER ---
Nurse's Notes [facility] Name: Shreyas Mckeon Age: 64 yrs Sex: Male : 1955 Arrival Date: 07/19/2019 Time: 14:31 Bed 13 Private MD: Diagnosis: decreased appetite;generalized weakness;hyperglycemia Presentation: 07/19 14:55 Presenting complaint: Patient states: I have been having decreases appetite for a few la1 days with occasional diarrhea and vomiting, denies any pain. Transition of care: patient was not received from another setting of care. Onset of symptoms was July 19, 2019. Risk Assessment: Do you want to hurt yourself or someone else? Patient reports no desire to harm self or others. Initial Sepsis Screen: Does the patient meet any 2 criteria? No. Patient's initial sepsis screen is negative. Does the patient have a suspected source of infection? No. Patient's initial sepsis screen is negative. Care prior to arrival: None. 14:55 Method Of Arrival: Ambulatory la1 14:55 Acuity: FRIDA 3 la1 Historical: - Allergies: 14:56 ACETAMINOPHEN; la1 - PMHx: 14:56 Diabetes - NIDDM; Hypertension; kidney disease; Left foot wound; la1 - Immunization history:: Adult Immunizations up to date. - Social history:: Smoking status: Patient/guardian denies using tobacco. - Ebola Screening: : No symptoms or risks identified at this time. - Family history:: not pertinent. - Hospitalizations: : No recent hospitalization is reported. Screenin:17 Abuse screen: Denies threats or abuse. Denies injuries from another. Nutritional ph screening: No deficits noted. Tuberculosis screening: No symptoms or risk factors identified. Fall Risk None identified. Assessment: 16:30 General: Appears in no apparent distress. comfortable, well groomed, Behavior is ph cooperative, appropriate for age, anxious. Pain: Denies pain. Neuro: Level of Consciousness is awake, alert, obeys commands, Oriented to person, place, time, situation. Cardiovascular: Capillary refill < 3 seconds in bilateral Patient's skin is warm and dry. Respiratory: Airway is patent Respiratory effort is even, unlabored, Respiratory pattern is regular, symmetrical. GI: Reports diarrhea, nausea, vomiting. Derm: Skin is intact, Skin is pink, warm \T\ dry. Musculoskeletal: Circulation, motion, and sensation intact. Range of motion: intact in all extremities. 17:30 Reassessment: Patient appears in no apparent distress at this time. Patient and/or ph family updated on plan of care and expected duration. Pain level reassessed. Patient is alert, oriented x 3, equal unlabored respirations, skin warm/dry/pink. 18:37 Reassessment: Patient appears in no apparent distress at this time. Patient and/or ph family updated on plan of care and expected duration. Pain level reassessed. Patient is alert, oriented x 3, equal unlabored respirations, skin warm/dry/pink. 19:00 Reassessment: Patient appears in no apparent distress at this time. Patient and/or jb4 family updated on plan of care and expected duration. Pain level reassessed. Patient is alert, oriented x 3, equal unlabored respirations, skin warm/dry/pink. 19:56 Reassessment: Patient appears in no apparent distress at this time. Patient and/or jb4 family updated on plan of care and expected duration. Pain level reassessed. Patient is alert, oriented x 3, equal unlabored respirations, skin warm/dry/pink. 20:29 Reassessment: Patient appears in no apparent distress at this time. Patient and/or jb4 family updated on plan of care and expected duration. Pain level reassessed. Patient is alert, oriented x 3, equal unlabored respirations, skin warm/dry/pink. d/c pending completion of fluids. 21:30 Reassessment: Patient appears in no apparent distress at this time. Patient and/or jb4 family updated on plan of care and expected duration. Pain level reassessed. Patient is alert, oriented x 3, equal unlabored respirations, skin warm/dry/pink. 22:30 Reassessment: Patient appears in no apparent distress at this time. Patient and/or jb4 family updated on plan of care and expected duration. Pain level reassessed. Patient is alert, oriented x 3, equal unlabored respirations, skin warm/dry/pink. 23:08 Reassessment: Patient appears in no apparent distress at this time. Patient and/or jb4 family updated on plan of care and expected duration. Pain level reassessed. Patient is alert, oriented x 3, equal unlabored respirations, skin warm/dry/pink. PT verbalized understanding of d/c and follow up instructions. Ambulated out of ED with a steady gait. Vital Signs: 14:56 BP 129 / 67; Pulse 90; Resp 16; Temp 98.4; Pulse Ox 100% on R/A; Weight 88 kg; Height 5 la1 ft. 9 in. (175.26 cm); 17:16 BP 115 / 62; Pulse 86; Resp 18; Pulse Ox 100% on R/A; ph 18:34 BP 118 / 64; Pulse 68; Resp 18; Pulse Ox 98% on R/A; ph 19:30 BP 144 / 77; Pulse 97; Resp 18; Pulse Ox 95% on R/A; jb4 20:15 BP 117 / 93; Pulse 81; Resp 16; Pulse Ox 99% on R/A; jb4 21:45 BP 155 / 83; Pulse 83; Resp 18; Pulse Ox 100% on R/A; jb4 22:30 BP 149 / 82; Pulse 83; Resp 18; Pulse Ox 98% on R/A; jb4 14:56 Body Mass Index 28.65 (88.00 kg, 175.26 cm) la1 ED Course: 14:31 Patient arrived in ED. as 14:56 Triage completed. la1 14:56 Arm band placed on left wrist. la1 15:50 Senthil Camacho MD is Attending Physician. wa 15:51 Kasia Garcia, BRICE is Primary Nurse. ph 16:49 Initial lab(s) drawn, by ks, sent to lab. Inserted saline lock: 20 gauge in right lt1 antecubital area, using aseptic technique. 17:04 EKG done, by office systems technology instructor. reviewed by Senthil Camacho MD. sm3 17:16 Patient has correct armband on for positive identification. Placed in gown. Bed in low ph position. Call light in reach. Side rails up X2. Pulse ox on. NIBP on. 17:40 Head Brain Wo Cont CT In Process Unspecified. EDMS 18:34 No provider procedures requiring assistance completed. ph 23:08 IV discontinued, intact, bleeding controlled, No redness/swelling at site. Pressure jb4 dressing applied. Administered Medications: 17:32 Drug: Ativan 1 mg Route: IVP; Site: right antecubital; ph 18:31 Follow up: Response: No adverse reaction ph 17:32 Drug: Zofran 2 mg Route: IVP; Site: right antecubital; ph 18:31 Follow up: Response: No adverse reaction ph 17:32 Drug: Pepcid 20 mg Route: IVP; Site: right antecubital; ph 18:31 Follow up: Response: No adverse reaction ph 17:45 Drug: NS 0.9% 1000 ml Route: IV; Rate: 1 bolus; Site: right antecubital; ph 17:45 Drug: Banana Bag - (NS 0.9% 1000 ml, foLIC Acid 1 mg, Thiamine 100 mg, Multivitamin 1 ph amp) Route: IV; Rate: calculated rate; Site: right antecubital; 23:10 Follow up: Response: No adverse reaction; IV Status: Completed infusion; IV Intake: jb4 1000ml Intake: 23:10 IV: 1000ml; Total: 1000ml. jb4 Outcome: 20:17 Discharge ordered by MD. henderson 23:08 Discharged to home ambulatory, with family. jb4 23:08 Condition: stable 23:08 Discharge instructions given to patient, Instructed on discharge instructions, follow up and referral plans. medication usage, Demonstrated understanding of instructions, follow-up care, medications, Prescriptions given X 3. 23:10 Patient left the ED. jb4 Signatures: Dispatcher [employer] EDMS Emily Fortune Lee RN RN Kasia Hou RN RN ph Bryson, James, RN RN jb4 Senthil Camacho MD MD wa Montes, Sailaja 3 Ilsa Bennett [facility]
--- NOTE | 2019-07-19 20:18 | EDPHYS ---
Physician Documentation [facility] Name: Shreyas Mckeon Age: 64 yrs Sex: Male : 1955 Arrival Date: 07/19/2019 Time: 14:31 Bed 13 Private MD: ED Physician Senthil Camacho HPI: 07/19 16:48 This 64 yrs old Male presents to ER via Ambulatory with complaints of wa Decreased Appetite. 16:48 The patient's problem is reported as weakness, that is generalized, decreased appetite. wa states feeling anxious. h/o ETOH (beer) daily. denies pain or SOB or direct query by me. state "I do not feel right." . Historical: - Allergies: 14:56 ACETAMINOPHEN; la1 - PMHx: 14:56 Diabetes - NIDDM; Hypertension; kidney disease; Left foot wound; la1 - Immunization history:: Adult Immunizations up to date. - Social history:: Smoking status: Patient/guardian denies using tobacco. - Ebola Screening: : No symptoms or risks identified at this time. - Family history:: not pertinent. - Hospitalizations: : No recent hospitalization is reported. ROS: 16:51 Eyes: Negative for injury, pain, redness, and discharge, ENT: Negative for injury, wa pain, and discharge, Neck: Negative for injury, pain, and swelling, Cardiovascular: Negative for chest pain, palpitations, and edema, Respiratory: Negative for shortness of breath, cough, wheezing, and pleuritic chest pain, Back: Negative for injury and pain, : Negative for injury, bleeding, discharge, and swelling, MS/Extremity: Negative for injury and deformity, Skin: Negative for injury, rash, and discoloration. 16:51 Constitutional: Positive for body aches, fatigue, malaise, poor PO intake, Negative for chills, fever. 16:51 Abdomen/GI: Positive for occasional vomiting and diarrhea. 16:51 Neuro: Positive for weakness, of the generalized. 16:51 Psych: Positive for anxiety. 16:51 All other systems are negative. Exam: 16:52 Constitutional: The patient appears in no acute distress, alert. wa 16:52 Constitutional: This is a well developed, well nourished patient who is awake, alert, wa and in no acute distress. Head/Face: Normocephalic, atraumatic. Eyes: Pupils equal round and reactive to light, extra-ocular motions intact. Lids and lashes normal. Conjunctiva and sclera are non-icteric and not injected. Cornea within normal limits. Periorbital areas with no swelling, redness, or edema. ENT: Nares patent. No nasal discharge, no septal abnormalities noted. Tympanic membranes are normal and external auditory canals are clear. Oropharynx with no redness, swelling, or masses, exudates, or evidence of obstruction, uvula midline. Mucous membranes moist. Neck: Trachea midline, no thyromegaly or masses palpated, and no cervical lymphadenopathy. Supple, full range of motion without nuchal rigidity, or vertebral point tenderness. No Meningismus. Chest/axilla: Normal chest wall appearance and motion. Nontender with no deformity. No lesions are appreciated. Cardiovascular: Regular rate and rhythm with a normal S1 and S2. No gallops, murmurs, or rubs. Normal PMI, no JVD. No pulse deficits. Respiratory: Lungs have equal breath sounds bilaterally, clear to auscultation and percussion. No rales, rhonchi or wheezes noted. No increased work of breathing, no retractions or nasal flaring. Abdomen/GI: Soft, non-tender, with normal bowel sounds. No distension or tympany. No guarding or rebound. No evidence of tenderness throughout. Back: No spinal tenderness. No costovertebral tenderness. Full range of motion. Skin: Warm, dry with normal turgor. Normal color with no rashes, no lesions, and no evidence of cellulitis. MS/ Extremity: Pulses equal, no cyanosis. Neurovascular intact. Full, normal range of motion. 16:52 Neuro: Orientation: is normal, Mentation: is normal, Memory: is normal, Cranial nerves: grossly normal, Motor: is normal. 16:52 Psych: Behavior/mood is cooperative, Affect is calm. 20:26 Radiologist reports: no acute intracranial process wa Vital Signs: 14:56 BP 129 / 67; Pulse 90; Resp 16; Temp 98.4; Pulse Ox 100% on R/A; Weight 88 kg; Height 5 la1 ft. 9 in. (175.26 cm); 17:16 BP 115 / 62; Pulse 86; Resp 18; Pulse Ox 100% on R/A; ph 18:34 BP 118 / 64; Pulse 68; Resp 18; Pulse Ox 98% on R/A; ph 19:30 BP 144 / 77; Pulse 97; Resp 18; Pulse Ox 95% on R/A; jb4 20:15 BP 117 / 93; Pulse 81; Resp 16; Pulse Ox 99% on R/A; jb4 21:45 BP 155 / 83; Pulse 83; Resp 18; Pulse Ox 100% on R/A; jb4 22:30 BP 149 / 82; Pulse 83; Resp 18; Pulse Ox 98% on R/A; jb4 14:56 Body Mass Index 28.65 (88.00 kg, 175.26 cm) la1 MDM: 15:50 Patient medically screened. wa 16:53 Differential diagnosis: CVA, TIA, metabolic disorder, infection?. ky 20:09 Data reviewed: vital signs, nurses notes. Test interpretation: by ED physician or wa midlevel provider: EKG: HR 64. sinus. 1st deg AV block. no zonal ischemic changes noted. . 20:10 Test interpretation: by ED physician or midlevel provider: labs: hyperglycemia. renal wa insufficiency. noted positive ETOH. mils elevation in liver enzymes. 20:12 Test interpretation: by ED physician or midlevel provider: head CT: no acute process. wa Response to treatment: the patient's symptoms have markedly improved after treatment. Special discussion: pt's symptoms related to ETOH above. discussed the need to quit. will script for bridging Librium to curtail withdrawal. pt promised to to drink ETOH on the medication. . 07/19 16:24 Order name: Basic Metabolic Panel; Complete Time: 18:07 ky 07/19 16:24 Order name: CBC with Diff; Complete Time: 17:07 ky 07/19 16:24 Order name: ETOH Level; Complete Time: 18:07 ky 07/19 16:24 Order name: Hepatic Function; Complete Time: 18:07 ky 07/19 16:24 Order name: PT-INR; Complete Time: 18:07 ky 07/19 16:24 Order name: Urine Drug Screen; Complete Time: 18:07 ky 07/19 16:24 Order name: Urine Microscopic Only; Complete Time: 18:07 ky 07/19 16:50 Order name: Flu; Complete Time: 20:05 ky 07/19 16:54 Order name: Head Brain Wo Cont CT; Complete Time: 18:07 ky 07/19 17:08 Order name: Urine Dipstick--Ancillary (enter results); Complete Time: 18:07 07/19 16:24 Order name: EKG; Complete Time: 16:25 ky 07/19 16:24 Order name: EKG - Nurse/Tech; Complete Time: 17:05 ky 07/19 16:24 Order name: IV Saline Lock; Complete Time: 16:50 ky 07/19 16:24 Order name: Labs collected and sent; Complete Time: 16:50 ky 07/19 16:24 Order name: Urine Dipstick-Ancillary (obtain specimen); Complete Time: 17:07 ky Administered Medications: 17:32 Drug: Ativan 1 mg Route: IVP; Site: right antecubital; ph 18:31 Follow up: Response: No adverse reaction ph 17:32 Drug: Zofran 2 mg Route: IVP; Site: right antecubital; ph 18:31 Follow up: Response: No adverse reaction ph 17:32 Drug: Pepcid 20 mg Route: IVP; Site: right antecubital; ph 18:31 Follow up: Response: No adverse reaction ph 17:45 Drug: NS 0.9% 1000 ml Route: IV; Rate: 1 bolus; Site: right antecubital; ph 17:45 Drug: Banana Bag - (NS 0.9% 1000 ml, foLIC Acid 1 mg, Thiamine 100 mg, Multivitamin 1 ph amp) Route: IV; Rate: calculated rate; Site: right antecubital; 23:10 Follow up: Response: No adverse reaction; IV Status: Completed infusion; IV Intake: jb4 1000ml Disposition: 07/19/19 20:17 Discharged to Home. Impression: decreased appetite, generalized weakness, hyperglycemia. - Condition is Stable. - Discharge Instructions: Weakness, [id number], Hyperglycemia, [id number]. - Prescriptions for Zofran 4 mg Oral Tablet - take 1 tablet by ORAL route every 12 hours As needed; 20 tablet. Pepcid 20 mg Oral Tablet - take 1 tablet by ORAL route once daily for 10 days; 10 tablet. - Medication Reconciliation Form, Thank You Letter, Antibiotic Education, Prescription Opioid Use form. - Follow up: Private Physician; When: 1 - 2 days; Reason: Recheck today's complaints. - Problem is new. - Symptoms have improved. Signatures: Dispatcher [employer] EDMS Last Boyce RN RN la1 Kasia Garcia RN RN Jac Mandujano RN RN jb4 Senthil Camacho MD MD wa Corrections: (The following items were deleted from the chart) 23:10 20:17 07/19/2019 20:17 Discharged to Home. Impression: decreased appetite; generalized jb4 weakness; hyperglycemia. Condition is Stable. Forms are Medication Reconciliation Form, Thank You Letter, Antibiotic Education, Prescription Opioid Use. Follow up: Private Physician; When: 1 - 2 days; Reason: Recheck today's complaints. Problem is new. Symptoms have improved. wa
[2019-07-20 00:46] VITALS: TEMP 98.4
[2019-07-20 00:54] VITALS: BP 149/82; O2SAT 98
== END 2019-07-19 23:10 | disposition home or self-care (01) ==
LOC: ER 14:28
DX: E11.65 Type 2 diabetes mellitus with hyperglycemia (principal); R63.0 Anorexia; I10 Essential (primary) hypertension; Z88.6 Allergy status to analgesic agent
CPT/HCPCS: 96365; 93005; 85025; 80048; 36415; 80320; 85610; 80076; 80307 ×8; 87804 ×2; 70450; 96375; 99284; 96366; J3411; J7030 ×2; J2405; 81003; 81015

== ENCOUNTER 2020-01-28 14:12 | Emergency (ER) | payer OTHER ==
[2020-01-28] MEDS ORDERED: NA CHLORIDE 0.9% 1,000 ML ONE (15:04)
[2020-01-28 15:26] LABS: Absolute Lymphocytes (CBC) 1.1 K/uL (0.7-4.9); Basophils % 0.5 % (0-1.3); Lymphocytes % 21.7 % (15.3-44.8); MPV 8.9 fL (7.6-11.3); RBC Red Blood Cell Count 4.81 M/uL (4.33-5.43)
[2020-01-28 15:41] LABS: Albumin 3.8 g/dL (3.4-5.0); Bilirubin Direct 0.2 mg/dL (0-0.2); Bilirubin Total 0.4 mg/dL (0.2-1.0); Magnesium 2.2 mg/dL (1.8-2.4); Potassium 4.5 mmol/L (3.5-5.1); Protein, Total 7.6 g/dL (6.4-8.2)
--- NOTE | 2020-01-28 16:31 | RAD REPORT ---
EXAM DESCRIPTION: CT - Abdomen Pelvis Wo Contrast - 01/28/2020 4:09 pm CLINICAL HISTORY: Abdominal pain COMPARISON: None TECHNIQUE: Computed axial tomography of the abdomen and pelvis was obtained. IV and oral contrast we re not requested. All CT scans are performed using dose optimization technique as appropriate and may include automated exposure control or mA/KV adjustment according to patient size. FINDINGS: The evaluation of solid organs, vessels and bowel is limited secondary to the lack of con trast administration. Pancreatic calcifications indicative of chronic pancreatitis. Spleen adrenals and left kidney are unremarkable. Tiny nonobstructing right renal calculus. Right renal cysts. Largest measures 7 centimeters. No evidence of diverticulitis. Small inguinal hernias contain fat. Cholecystectomy. Tiny umbilical hernia. . Small hiatal hernia. IMPRESSION: Chronic pancreatitis No acute abnormality displayed
--- NOTE | 2020-01-28 16:43 | ER ---
Nurse's Notes [facility] Name: Shreyas Mckeon Age: 64 yrs Sex: Male : 1955 Arrival Date: 01/28/2020 Time: 14:18 Bed 8 Private MD: Diagnosis: Alcohol abuse with intoxication;Dehydration;Alcohol-induced chronic pancreatitis Presentation: 01/27 14:20 Chief complaint: Patient states: Pt. and son report that has he a problem with alcohol rb1 and has 5 Malt Liquors already this morning. Gait is unsteady per son's report. Coronavirus screen: Proceed with normal triage. Ebola Screen: Patient negative for fever greater than or equal to 101.5 degrees Fahrenheit, and additional compatible Ebola Virus Disease symptoms Patient denies travel to an Ebola-affected area in the 21 days before illness onset. Initial Sepsis Screen: Does the patient meet any 2 criteria? No. Patient's initial sepsis screen is negative. Does the patient have a suspected source of infection? No. Patient's initial sepsis screen is negative. Risk Assessment: Do you want to hurt yourself or someone else? Patient reports no desire to harm self or others. Onset of symptoms is unknown. 14:20 Method Of Arrival: Ambulatory rb1 14:20 Acuity: FRIDA 3 rb1 Triage Assessment: 14:20 General: Appears in no apparent distress. comfortable, Behavior is calm, Son feels that rb1 the pt. is incoherent. . Denies fever, feeling ill. Pain: Denies pain. Neuro: Level of Consciousness is awake, obeys commands, Oriented to person, place, time, situation. Cardiovascular: Patient's skin is warm and dry. Respiratory: Airway is patent Respiratory effort is even, unlabored, Respiratory pattern is regular, symmetrical, Denies cough, shortness of breath. GI: Reports vomiting, yesterday but not today. Pt. reports that he thinks it's from not eating enough. Patient currently denies bloody stool. GI: Patient currently denies blood in emesis. : No signs and/or symptoms were reported regarding the genitourinary system. Musculoskeletal: Range of motion: intact in all extremities. Historical: - Allergies: 14:20 ACETAMINOPHEN; rb1 - Home Meds: 14:20 Unable to obtain [Active]; rb1 - PMHx: 14:20 Diabetes - NIDDM; Hypertension; kidney disease; Left foot wound; rb1 - Immunization history:: Adult Immunizations up to date. - Social history:: Smoking status: Patient reports the use of cigarette tobacco products, denies chronic smoking, but will smoke occasionally, cigars. - Family history:: not pertinent. - Hospitalizations: : No recent hospitalization is reported. Screenin:20 Abuse screen: Denies threats or abuse. Nutritional screening: No deficits noted. rb1 Tuberculosis screening: No symptoms or risk factors identified. Fall Risk No fall in past 12 months (0 pts). Secondary diagnosis (15 points) Alcoholism. Assessment: 14:20 General: See triage assessment. rb1 15:10 Reassessment: Patient appears in no apparent distress at this time. Patient and/or rb1 family updated on plan of care and expected duration. Pain level reassessed. Patient is alert, oriented x 3, equal unlabored respirations, skin warm/dry/pink. Patient denies pain at this time. 16:00 Reassessment: Patient appears in no apparent distress at this time. No changes from rb1 previously documented assessment. 16:02 Reassessment: Pt. went to CT. rb1 17:00 Reassessment: Patient appears in no apparent distress at this time. Patient and/or rb1 family updated on plan of care and expected duration. Pain level reassessed. Patient is alert, oriented x 3, equal unlabored respirations, skin warm/dry/pink. Patient denies pain at this time. 17:12 Reassessment: Spoke to pt. son Aaron, when he called to get an update on his father, he rb1 informed me that he and his mother weren't coming to pick the pt. up because they didn't want him back at home because they were afraid he was going to fall. I explained to Aaron that someone would need to come and get him because we could not keep him here. I asked Aaron to hold on and reported the situation to JOHNNY Carranza to receive direction on how to handle the situation. BRICE Byrd spoke with Aaron. 18:10 Reassessment: Patient appears in no apparent distress at this time. No changes from rb1 previously documented assessment. Psych: 14:20 Patient uses 6 pack of beer, daily. Last use was this morning. Patient does not have a rb1 history of DTs. Vital Signs: 14:20 BP 156 / 89; Pulse 91; Resp 19; Temp 98.4(O); Pulse Ox 96% on R/A; Weight 95.25 kg (R); rb1 Height 5 ft. 9 in. (175.26 cm) (R); Pain 0/10; 15:20 BP 152 / 71; Pulse 85; Resp 18; Pulse Ox 96% on R/A; Pain 0/10; rb1 16:20 BP 152 / 71; Pulse 104; Resp 17; Pulse Ox 95% on R/A; Pain 0/10; rb1 17:20 BP 148 / 92; Pulse 84; Resp 18; Pulse Ox 100% on R/A; rb1 18:20 BP 138 / 76; Pulse 69; Resp 17; Pulse Ox 99% on R/A; Pain 0/10; rb1 14:20 Body Mass Index 31.01 (95.25 kg, 175.26 cm) rb1 ED Course: 14:18 Patient arrived in ED. as 14:20 Arm band placed on right wrist. rb1 14:20 Patient has correct armband on for positive identification. Bed in low position. Call rb1 light in reach. Side rails up X 1. Pulse ox on. NIBP on. 14:21 Maykel Oviedo MD is Attending Physician. rn 14:25 Remi Guzman, BRICE is Primary Nurse. bp 14:41 Triage completed. rb1 15:16 Initial lab(s) drawn, by me, sent to lab. Inserted saline lock: 22 gauge in right jb1 antecubital area, using aseptic technique. Blood collected. 16:09 CT Abd/Pelvis - Without Contrast In Process Unspecified. EDMS 16:10 CT completed. Patient tolerated procedure well. Patient moved back from CT. bq 17:34 PT SON AARON CALLED REGARDING PT DISCHARGE. PT SON STATED THAT HE AND HIS MOTHER DO NOT ls4 WANT TO PICK HIM UP AND PT DOES NOT WANT HIM IN THEIR HOME ANY LONGER. PT SON TOLD THAT THERE IS NOT MEDICAL REASON TO ADMIT HIM TO HOSPITAL, THEREFORE HE WOULD NEED TO BE PICKED UP FROM ED. PT SON STATED THAT HE DOES NOT WANT TO PICK HIM UP. WE EXPLAINED TO SON THAT HE WOULD NEED TO BE PICKED UP AND BROUGHT HOME BECAUSE PT DOES HAVE THE RIGHT TO LIVE IN HIS HOME AND CANNOT BE DENIED ENTRANCE TO HIS HOME. THIS PROBLEM WOULD NEED TO BE RESOLVED IN A MANNER OTHER THAN LEAVING HIM IN THE ED. PT SON BECAME ANGRY, BUT THEN STATED THAT THE WOULD BE HERE TO PICK HIM UP IN ONE HOUR. 18:43 No provider procedures requiring assistance completed. IV discontinued, intact, rb1 bleeding controlled, No redness/swelling at site. Pressure dressing applied. Administered Medications: 15:24 Drug: NS 0.9% 1000 ml Route: IV; Rate: 1000 ml; Site: right antecubital; rb1 16:32 Drug: Banana Bag - (NS 0.9% 1000 ml, foLIC Acid 1 mg, Thiamine 100 mg, Multivitamin 1 rb1 amp) Route: IV; Rate: calculated rate; Site: right antecubital; Outcome: 16:42 Discharge ordered by MD. rn 18:43 Patient left the ED. rb1 18:43 Discharged to home via wheelchair, with family. rb1 18:43 Condition: stable 18:43 Discharge instructions given to patient, Instructed on discharge instructions, follow up and referral plans. Demonstrated understanding of instructions, follow-up care, Prescriptions given X none Signatures: Dispatcher [employer] EDMS Kye Prakash1 Yajaira Diaz Amelia as Nieto, Roman, MD MD rn Barber, Rebecca, RN RN rb1 Remi Guzman, RN RN Rochelle Casillas, RN RN ls4 Corrections: (The following items were deleted from the chart) 14:48 14:20 Fall Risk None identified. rb1 rb1 15:00 14:20 Neuro: Level of Consciousness is awake, obeys commands, Oriented to person, rb1 place, time, situation, rb1 18:53 18:52 Patient left the ED. rb1 rb1
--- NOTE | 2020-01-28 16:43 | EDPHYS ---
Physician Documentation [facility] Name: Shreyas Mckeon Age: 64 yrs Sex: Male : 1955 Arrival Date: 01/28/2020 Time: 14:18 Bed 8 Private MD: ED Physician Maykel Oviedo HPI: 01/27 15:43 This 64 yrs old Male presents to ER via Ambulatory with complaints of ETOH rn Abuse. 15:43 Son and brought him in because for months has been drinking daily, moderate to rn heavy, in addition to sleep medication and anxiety medication, they are concerned he cannot stop. Patient states he feels fine, no pain, no fever, no head injury. Came because family concerned. . Severity of symptoms: At their worst the symptoms were moderate in the emergency department the symptoms have improved. The patient has experienced similar episodes in the past. The patient has not recently seen a physician. Historical: - Allergies: 14:20 ACETAMINOPHEN; rb1 - Home Meds: 14:20 Unable to obtain [Active]; rb1 - PMHx: 14:20 Diabetes - NIDDM; Hypertension; kidney disease; Left foot wound; rb1 - Immunization history:: Adult Immunizations up to date. - Social history:: Smoking status: Patient reports the use of cigarette tobacco products, denies chronic smoking, but will smoke occasionally, cigars. - Family history:: not pertinent. - Hospitalizations: : No recent hospitalization is reported. ROS: 15:43 Constitutional: Negative for fever, chills, and weight loss, Eyes: Negative for injury, rn pain, redness, and discharge, Neck: Negative for injury, pain, and swelling, Cardiovascular: Negative for chest pain, palpitations, and edema, Respiratory: Negative for shortness of breath, cough, wheezing, and pleuritic chest pain, Abdomen/GI: Negative for abdominal pain, diarrhea, and constipation, MS/Extremity: Negative for injury and deformity, Skin: Negative for injury, rash, and discoloration, Neuro: Negative for headache, weakness, numbness, tingling, and seizure. Exam: 15:43 Constitutional: This is a well developed, well nourished patient who is awake, alert, rn and in no acute distress. Head/Face: Normocephalic, atraumatic. ENT: dry MM, no stridor, no tongue fasciculations Cardiovascular: Regular rate and rhythm. No pulse deficits. Respiratory: No increased work of breathing, no retractions or nasal flaring. Abdomen/GI: soft, non-tender Skin: Warm, dry MS/ Extremity: Pulses equal, no cyanosis. Neurovascular intact. Full, normal range of motion. Equal circumference. Neuro: Awake and alert, GCS 15, oriented to person, place, time, and situation. Cranial nerves II-XII grossly intact. Motor strength 5/5 in all extremities. Sensory grossly intact. Cerebellar exam normal. No tremor. Vital Signs: 14:20 BP 156 / 89; Pulse 91; Resp 19; Temp 98.4(O); Pulse Ox 96% on R/A; Weight 95.25 kg (R); rb1 Height 5 ft. 9 in. (175.26 cm) (R); Pain 0/10; 15:20 BP 152 / 71; Pulse 85; Resp 18; Pulse Ox 96% on R/A; Pain 0/10; rb1 16:20 BP 152 / 71; Pulse 104; Resp 17; Pulse Ox 95% on R/A; Pain 0/10; rb1 17:20 BP 148 / 92; Pulse 84; Resp 18; Pulse Ox 100% on R/A; rb1 18:20 BP 138 / 76; Pulse 69; Resp 17; Pulse Ox 99% on R/A; Pain 0/10; rb1 14:20 Body Mass Index 31.01 (95.25 kg, 175.26 cm) rb1 MDM: 14:21 Patient medically screened. rn 16:38 Differential Diagnosis dehydration, ETOH intoxication, medication side effect. Data rn reviewed: vital signs, nurses notes, lab test result(s), radiologic studies, CT scan, and as a result, I will discharge patient. Counseling: I had a detailed discussion with the patient and/or guardian regarding: the historical points, exam findings, and any diagnostic results supporting the discharge/admit diagnosis, lab results, radiology results, the need for outpatient follow up, to return to the emergency department if symptoms worsen or persist or if there are any questions or concerns that arise at home. Response to treatment: the patient's symptoms have mildly improved after treatment, and as a result, I will discharge patient. Special discussion: I discussed with the patient/guardian in detail that at this point there is no indication for admission to the hospital. It is understood, however, that if the symptoms persist or worsen the patient needs to return immediately for re-evaluation. Based on the history and exam findings, there is no indication for further emergent testing or inpatient evaluation. I discussed with the patient/guardian the need to see the primary care provider for further evaluation of the symptoms. ED course: No acute findings in bloodwork or CT abdomen, + chronic pancreatitis findings most likely 2/2 ETOH. Spoke a length with son, given chronic problem and no acute findings, unable to justify admission at this point, return precautions given and understood, especially signs of ETOh withdrawal. Also recommended that they be more careful with zolpidem and anxiety medication as combination with these and ETOH could easily explain AMS and confusion episodes. Normal neuro exam here. Able to stand and urinate on own. . 16:42 ED course: Son states that Thursday they are planning on going to see Dr. Horne for cardiac rehabilitation specialist facility placement and recommendations. . 01/27 14:46 Order name: CBC with Diff; Complete Time: 15:52 rn 01/27 14:46 Order name: LFT's; Complete Time: 15:52 rn 01/27 14:46 Order name: Alcohol Level; Complete Time: 15:52 rn 01/27 14:46 Order name: AMMONIA; Complete Time: 15:52 rn 01/27 14:46 Order name: Magnesium; Complete Time: 15:52 rn 01/27 14:46 Order name: IV Start; Complete Time: 15:16 rn 01/27 14:46 Order name: Basic Metabolic Panel; Complete Time: 15:52 rn 01/27 14:46 Order name: Lipase; Complete Time: 15:52 rn 01/27 15:53 Order name: CT Abd/Pelvis - Without Contrast; Complete Time: 16:33 rn Administered Medications: 15:24 Drug: NS 0.9% 1000 ml Route: IV; Rate: 1000 ml; Site: right antecubital; rb1 16:32 Drug: Banana Bag - (NS 0.9% 1000 ml, foLIC Acid 1 mg, Thiamine 100 mg, Multivitamin 1 rb1 amp) Route: IV; Rate: calculated rate; Site: right antecubital; Disposition: 01/28/20 16:42 Discharged to Home. Impression: Alcohol abuse with intoxication, Dehydration, Alcohol-induced chronic pancreatitis. - Condition is Stable. - Discharge Instructions: Alcohol Intoxication, Dehydration, Adult, Dehydration, Adult, [id number], Rehydration, Adult, Chronic Pancreatitis. - Medication Reconciliation Form, Thank You Letter, Antibiotic Education, Prescription Opioid Use form. - Follow up: Private Physician; When: As needed; Reason: Recheck today's complaints, Re-evaluation by your physician. - Problem is chronic. - Symptoms have improved. Signatures: Dispatcher [employer] EDMS Maykel Oviedo MD MD rn Barber, Rebecca, RN RN rb1 Corrections: (The following items were deleted from the chart) 15:54 15:43 Constitutional: This is a well developed, well nourished patient who is awake, rn alert, and in no acute distress. Head/Face: Normocephalic, atraumatic. ENT: dry MM, no stridor, no tongue fasciculations Cardiovascular: Regular rate and rhythm. No pulse deficits. Respiratory: No increased work of breathing, no retractions or nasal flaring. Abdomen/GI: soft, non-tender Skin: Warm, dry MS/ Extremity: Pulses equal, no cyanosis. Neurovascular intact. Full, normal range of motion. Equal circumference. Neuro: Awake and alert, GCS 15, oriented to person, place, time, and situation. Cranial nerves II-XII grossly intact. Motor strength 5/5 in all extremities. Sensory grossly intact. Cerebellar exam normal. rn 18:52 16:42 01/28/2020 16:42 Discharged to Home. Impression: Alcohol abuse with intoxication; rb1 Dehydration; Alcohol-induced chronic pancreatitis. Condition is Stable. Forms are Medication Reconciliation Form, Thank You Letter, Antibiotic Education, Prescription Opioid Use. Follow up: Private Physician; When: As needed; Reason: Recheck today's complaints, Re-evaluation by your physician. Problem is chronic. Symptoms have improved. rn
[2020-01-28 19:00] VITALS: TEMP 98.4; O2SAT 96
[2020-01-28 19:02] VITALS: BP 152/71
[2020-01-29] MEDS ORDERED: FOLIC ACID 1 MG, MULTIVITAMINS INJ 10 ML, THIAMINE HCL 100 MG in NA CHLORIDE 0.9% 1,000 ML IV SCH (09:00)
== END 2020-01-28 18:52 | disposition home or self-care (01) ==
LOC: ER 14:12
DX: E86.0 Dehydration (principal); K86.0 Alcohol-induced chronic pancreatitis; I10 Essential (primary) hypertension; Z72.0 Tobacco use; Z88.6 Allergy status to analgesic agent
CPT/HCPCS: 85025; 80048; 36415; 80320; 82140; 83735; 80076; 83690; 74176; 96374; 99284; J7030

== ENCOUNTER 2020-06-28 12:04 | Observation (INO) | payer OTHER ==
[2020-06-28 13:22] LABS: Absolute Lymphocytes (CBC) 0.6 K/uL (0.7-4.9); Basophils % 0.1 % (0-1.3); Hematocrit 42.1 % (39.6-49.0); MPV 11.5 fL (7.6-11.3); RBC Red Blood Cell Count 4.56 M/uL (4.33-5.43)
[2020-06-28 13:33] LABS: Potassium 4.3 mmol/L (3.5-5.1)
[2020-06-28 13:52] LABS: Blood Morphology Comment NOT SEEN (NOT SEEN); Platelet Estimate ADEQ; White Blood Cell Scan OK (OK)
--- NOTE | 2020-06-28 13:55 | EDPHYS ---
Physician Documentation [facility] Name: Shreyas Mckeon Age: 65 yrs Sex: Male : 1955 Arrival Date: 06/28/2020 Time: 12:05 Bed 18 Private MD: ED Physician Soren Dale HPI: 06/28 13:50 This 65 yrs old Male presents to ER via Ambulatory with complaints of Rectal jr8 pain. 13:50 Patient stated that he thinks he has hemorrhoids. Stated that he has been using jr8 suppositories but without relief. Feels pain to right inner buttock as well . Onset: The symptoms/episode began/occurred gradually, 2 day(s) ago. Severity of symptoms: At their worst the symptoms were moderate. The patient has not experienced similar symptoms in the past. The patient has not recently seen a physician. Historical: - Allergies: 12:11 ACETAMINOPHEN; ll1 - PMHx: 12:11 Diabetes - NIDDM; Hypertension; kidney disease; Left foot wound; ll1 - PSHx: 12:11 elbow surgery; Cholecystectomy; ll1 - Immunization history:: Flu vaccine is up to date. - Social history:: Smoking status: Patient denies any tobacco usage or history of. ROS: 13:50 Eyes: Negative for injury, pain, redness, and discharge, ENT: Negative for injury, jr8 pain, and discharge, Neck: Negative for injury, pain, and swelling, Cardiovascular: Negative for chest pain, palpitations, and edema, Respiratory: Negative for shortness of breath, cough, wheezing, and pleuritic chest pain, Abdomen/GI: Negative for abdominal pain, nausea, vomiting, diarrhea, and constipation. Positive for rectal pain Back: Negative for injury and pain, MS/Extremity: Negative for injury and deformity, Skin: Negative for injury, rash, and discoloration, Neuro: Negative for headache, weakness, numbness, tingling, and seizure. Exam: 13:50 Constitutional: This is a well developed, well nourished patient who is awake, alert, jr8 and in no acute distress. Cardiovascular: Regular rate and rhythm with a normal S1 and S2. No gallops, murmurs, or rubs. Normal PMI, no JVD. No pulse deficits. Respiratory: Lungs have equal breath sounds bilaterally, clear to auscultation and percussion. No rales, rhonchi or wheezes noted. No increased work of breathing, no retractions or nasal flaring. Back: No spinal tenderness. No costovertebral tenderness. Full range of motion. Skin: Warm, dry with normal turgor. Normal color with no rashes, no lesion MS/ Extremity: Pulses equal, no cyanosis. Neurovascular intact. Full, normal range of motion. Neuro: Awake and alert, GCS 15, oriented to person, place, time, and situation. Cranial nerves II-XII grossly intact. Motor strength 5/5 in all extremities. Sensory grossly intact. Cerebellar exam normal. Normal gait. 13:50 Abdomen/GI: Inspection: abdomen appears normal, Bowel sounds: active, all quadrants, Palpation: abdomen is soft and non-tender, in all quadrants, Rectal exam: rectal tone normal, hemorrhoid(s), are not appreciated, mass, is not appreciated, swelling, that is moderate, right inner gluteal cleft next to anal orifice, tenderness, that is moderate, right perianal region, Indicators: McBurney's point is not tender, Jansen's sign is negative, Liver: tenderness, is not appreciated. Vital Signs: 12:09 BP 134 / 77; Pulse 98; Resp 16; Temp 98.5; Pulse Ox 100% ; Weight 87.54 kg; Height 5 ll1 ft. 9 in. (175.26 cm); Pain 8/10; 13:29 BP 124 / 64; Pulse 89; Resp 18; Pulse Ox 99% on R/A; ph 14:41 BP 127 / 68; Pulse 78; Resp 18; Pulse Ox 98% on R/A; ph 12:09 Body Mass Index 28.50 (87.54 kg, 175.26 cm) ll1 MDM: 12:27 Patient medically screened. jr8 13:49 Data reviewed: vital signs, nurses notes, lab test result(s), radiologic studies, CT jr8 scan. Data interpreted: Pulse oximetry: on room air is 99 %. Interpretation: normal. Counseling: I had a detailed discussion with the patient and/or guardian regarding: the historical points, exam findings, and any diagnostic results supporting the discharge/admit diagnosis, lab results, radiology results, the need for further work-up and treatment in the hospital. ED course: Spoke with Dr. Mark who will consult on case . 06/28 12:36 Order name: Basic Metabolic Panel; Complete Time: 13:42 jr8 06/28 12:36 Order name: CBC with Diff; Complete Time: 13:54 jr8 06/28 12:36 Order name: Blood Culture Adult (2) jr8 06/28 13:30 Order name: Pelvis Wo Cont EDMS 06/28 13:51 Order name: CBC Smear Scan; Complete Time: 13:54 EDMS 06/28 13:50 Order name: EKG; Complete Time: 13:50 jr8 06/28 12:36 Order name: IV Saline Lock; Complete Time: 13:15 jr8 06/28 12:36 Order name: Labs collected and sent; Complete Time: 13:15 jr8 06/28 13:49 Order name: EKG - Nurse/Tech; Complete Time: 15:19 jr8 Administered Medications: 14:01 CANCELLED (Physician Discretion): NS 0.9% 1000 ml IV at 1000 ml once jr8 14:35 Drug: morphine 2 mg Route: IVP; Site: right antecubital; ph 15:27 Follow up: Response: No adverse reaction; Pain is decreased; RASS: Alert and Calm (0) ph 14:35 Drug: Insulin Regular Human 5 units {Co-Signature: bp (Remi Guzman RN).} Route: IVP; ph Site: right antecubital; 15:27 Follow up: Response: No adverse reaction ph 14:35 Drug: NS 0.9% 500 ml Route: IV; Rate: bolus; Site: right antecubital; ph 15:27 Follow up: Response: No adverse reaction; IV Status: Completed infusion; IV Intake: ph 500ml 14:36 Drug: Ativan 0.5 mg Route: IVP; Site: right antecubital; ph 15:26 Follow up: Response: No adverse reaction ph 14:38 Drug: Cefepime 1 grams Route: IVPB; Rate: 200 ml/hr; Infused Over: 30 mins; Site: right ph antecubital; 15:26 Follow up: Response: No adverse reaction; IV Status: Completed infusion ph 15:25 Not Given (Pt taken to OR before administered, medication sent w/ pt): vancoMYCIN 1 ph grams IVPB once over 2 hrs Disposition: 06/29 09:33 Co-signature as Attending Physician, Soren Dale MD I agree with the assessment and kdr plan of care. Disposition: 06/28/20 13:54 Hospitalization ordered by Jayme Arrington for Observation. Preliminary diagnosis are Perirectal Abscess, Cellulitis of buttock. - Bed requested for Telemetry/MedSurg (observation). - Status is Observation. iw - Condition is Stable. - Problem is new. - Symptoms have improved. Signatures: Dispatcher [employer] EDMD Soren Dale MD MD kdr Sammie Farley, BRICE RN iw Fabricio Lyon, PA PA jr8 Kasia Garcia, RN RN ph Ritesh Hernandez RN RN ll1 Remi Guzman RN bp Corrections: (The following items were deleted from the chart) 06/28 13:30 12:36 Pelvis W/Cont+CT.RAD.BRZ ordered. [facility] [place] EDMD 14: 13:43 NS 0.9% 1000 ml IV at 1000 ml once ordered. jr8 jr8 14:20 13:54 Hospitalization Ordered by Jayme Arrington DO for Inpatient Admission. Preliminary jr8 diagnosis is Perirectal Abscess; Cellulitis of buttock. Bed requested for Telemetry/MedSurg (Inpatient). Status is Inpatient Admission. Condition is Stable. Problem is new. Symptoms have improved. jr8 15:25 14:20 06/28/2020 13:54 Hospitalization Ordered by Jayme Arrington DO for Observation. iw Preliminary diagnosis is Perirectal Abscess; Cellulitis of buttock. Bed requested for Telemetry/MedSurg (observation). Status is Observation. Condition is Stable. Problem is new. Symptoms have improved. jr8
--- NOTE | 2020-06-28 13:55 | ER ---
Nurse's Notes [facility] Name: Shreyas Mckeon Age: 65 yrs Sex: Male : 1955 Arrival Date: 06/28/2020 Time: 12:05 Bed 18 Private MD: Diagnosis: Perirectal Abscess;Cellulitis of buttock Presentation: 06/28 12:09 Chief complaint: Patient states: Rectal pain and swelling for 1 week. Hasn't noticed ll1 any bleeding. no fever. Coronavirus screen: Client denies travel out of the [place] in the last 14 days. At this time, the client does not indicate any symptoms associated with coronavirus-19. Ebola Screen: Patient denies travel to an Ebola-affected area in the 21 days before illness onset. Initial Sepsis Screen: Does the patient meet any 2 criteria? No. Patient's initial sepsis screen is negative. Risk Assessment: Do you want to hurt yourself or someone else? Patient reports no desire to harm self or others. Onset of symptoms was June 22, 2020. 12:09 Method Of Arrival: Ambulatory ll1 12:09 Acuity: FRIDA 3 ll1 13:29 Initial Sepsis Screen: Does the patient have a suspected source of infection? Yes: Skin ph breakdown/wound. Historical: - Allergies: 12:11 ACETAMINOPHEN; ll1 - PMHx: 12:11 Diabetes - NIDDM; Hypertension; kidney disease; Left foot wound; ll1 - PSHx: 12:11 elbow surgery; Cholecystectomy; ll1 - Immunization history:: Flu vaccine is up to date. - Social history:: Smoking status: Patient denies any tobacco usage or history of. Screenin:40 Abuse screen: Denies threats or abuse. Denies injuries from another. Nutritional ph screening: No deficits noted. Tuberculosis screening: No symptoms or risk factors identified. Fall Risk None identified. Assessment: 12:30 General: Appears in no apparent distress. comfortable, well groomed, Behavior is calm, ph cooperative, appropriate for age, Denies fever, feeling ill. Pain: Complains of pain in anus. Neuro: Level of Consciousness is awake, alert, obeys commands, Oriented to person, place, time, situation. Cardiovascular: Capillary refill < 3 seconds in bilateral fingers Patient's skin is warm and dry. Respiratory: Airway is patent Respiratory effort is even, unlabored, Respiratory pattern is regular, symmetrical. GI: No signs and/or symptoms were reported involving the gastrointestinal system. Patient currently denies bloody stool, diarrhea, rectal bleeding, vomiting. Derm: Skin is intact, is healthy with good turgor, Skin is pink, warm \T\ dry. Abscess located on anus. Musculoskeletal: Circulation, motion, and sensation intact. Range of motion: intact in all extremities. 13:27 Reassessment: Patient appears in no apparent distress at this time. Patient and/or ph family updated on plan of care and expected duration. Pain level reassessed. Patient is alert, oriented x 3, equal unlabored respirations, skin warm/dry/pink. Vital Signs: 12:09 BP 134 / 77; Pulse 98; Resp 16; Temp 98.5; Pulse Ox 100% ; Weight 87.54 kg; Height 5 ll1 ft. 9 in. (175.26 cm); Pain 8/10; 13:29 BP 124 / 64; Pulse 89; Resp 18; Pulse Ox 99% on R/A; ph 14:41 BP 127 / 68; Pulse 78; Resp 18; Pulse Ox 98% on R/A; ph 12:09 Body Mass Index 28.50 (87.54 kg, 175.26 cm) ll1 ED Course: 12:05 Patient arrived in ED. ds1 12:10 Triage completed. ll1 12:11 Arm band placed on Patient placed in an exam room, on a stretcher. ll1 12:20 Kasia Garcia, BRICE is Primary Nurse. ph 12:27 Fabricio Lyon PA is PHCP. jr8 12:27 Soren Dale MD is Attending Physician. jr8 12:55 Initial lab(s) drawn, sent to lab. Inserted saline lock: 20 gauge in right antecubital ph area, using aseptic technique. Blood collected. 13:28 No provider procedures requiring assistance completed. ph 13:29 Patient has correct armband on for positive identification. Placed in gown. Bed in low ph position. Call light in reach. Side rails up X2. Pulse ox on. NIBP on. Door closed. Noise minimized. Warm blanket given. 13:31 Pelvis Wo Cont In Process Unspecified. EDMS 13:53 Jayme Arrington DO is Hospitalizing Provider. jr8 15:10 EKG done, by ED staff, reviewed by Fabricio HANSEN. jp3 15:25 Patient admitted, IV remains in place. ph Administered Medications: 14:01 CANCELLED (Physician Discretion): NS 0.9% 1000 ml IV at 1000 ml once jr8 14:35 Drug: morphine 2 mg Route: IVP; Site: right antecubital; ph 15:27 Follow up: Response: No adverse reaction; Pain is decreased; RASS: Alert and Calm (0) ph 14:35 Drug: Insulin Regular Human 5 units {Co-Signature: bp (Remi Guzman RN).} Route: IVP; ph Site: right antecubital; 15:27 Follow up: Response: No adverse reaction ph 14:35 Drug: NS 0.9% 500 ml Route: IV; Rate: bolus; Site: right antecubital; ph 15:27 Follow up: Response: No adverse reaction; IV Status: Completed infusion; IV Intake: ph 500ml 14:36 Drug: Ativan 0.5 mg Route: IVP; Site: right antecubital; ph 15:26 Follow up: Response: No adverse reaction ph 14:38 Drug: Cefepime 1 grams Route: IVPB; Rate: 200 ml/hr; Infused Over: 30 mins; Site: right ph antecubital; 15:26 Follow up: Response: No adverse reaction; IV Status: Completed infusion ph 15:25 Not Given (Pt taken to OR before administered, medication sent w/ pt): vancoMYCIN 1 ph grams IVPB once over 2 hrs Intake: 15:27 IV: 500ml; Total: 500ml. ph Outcome: 13:54 Decision to Hospitalize by Provider. jr8 15:25 Patient left the ED. iw 15:25 Admitted to OR accompanied by nurse, with chart. ph 15:25 Condition: stable 15:25 Instructed on the need for admit. Signatures: Dispatcher [employer] EDME Jen Black ds1 Sammie Farley RN RN iw Roszak, Josh, PA PA jr8 Kasia Garcia RN RN Nathan Frey jp3 Ritesh Hernandez RN RN ll1 Remi Guzman RN bp
[2020-06-28] MEDS ORDERED: VANCOMYCIN/NS 1 gm 1 GM/250 ML BAG IVPB ONE (14:30)
[2020-06-28] MEDS ORDERED: MORPHINE 2 MG/ML SYR ONE (14:31)
[2020-06-28] MEDS ORDERED: LORazepam 2 MG/ML VIAL ONE (14:31)
[2020-06-28] MEDS ORDERED: ONDANSETRON 4 MG/2 ML VIAL ONE ×2 (14:31→15:54)
[2020-06-28] MEDS ORDERED: INSULIN -REGULAR HUMAN 50 UNIT/0.5 ML ML ONE (14:32)
[2020-06-28] MEDS ORDERED: NA CHLORIDE 0.9% 500 ML ONE (14:33)
--- NOTE | 2020-06-28 14:36 | P.HP ---
Certification for Inpatient Patient admitted to: Observation With expected LOS: <2 Midnights Patient will require the following post-hospital care: None Practitioner: I am a practitioner with admitting privileges, knowledge of patient current condition, hospital course, and medical plan of care. Services: Services provided to patient in accordance with Admission requirements found in Title 42 Section 412.3 of the Code of Federal Regulations Patient History Date of Service: 06/28/20 Primary Care Provider: Dr. Horne; Nephrology-Dr. Michele Reason for admission: Rectal pain History of Present Illness: 65-year-old male with history of chronic renal disease, diabetes, hypertension and obstructive sleep apnea. Patient reports rectal pain over the last several days. He went to see his PCP yesterday. Hemorrhoids were suspected. He was given suppositories to help with pain. Pain continued to get worse. He denied any melena, rectal bleeding. He denied any fever, chills. He came to the ER for severe pain. In the ER patient was evaluated. Vital signs stable. White count 12.7, hemoglobin 14. Platelet count 203. Neutrophils 88. Sodium 130, potassium 4.3. BUN of 37, creatinine 2.39 with a GFR of 27. Glucose 355. CT scan revealed a 5 cm perirectal abscess. Antibiotics were initiated. Surgeon was consulted. Patient admitted for treatment. When I saw the patient ER, pain was better controlled. Surgeon was present. Allergies acetaminophen Allergy (Verified 08/19/18 21:59) Hives Home medications list reviewed: Yes Home Medications: Pantoprazole Sodium 40 mg PO DAILY 08/20/18 Atorvastatin Calcium [Lipitor*] 20 mg PO BEDTIME 11/01/19 Famotidine [Pepcid*] 20 mg PO BID 11/01/19 Ferrous Sulfate [Iron] 325 mg PO DAILY 11/01/19 Multivit,Tx with Iron,Minerals [Thera-M] 1 each PO DAILY 11/01/19 Apixaban [Eliquis] 2.5 mg PO BID #60 tablet 11/03/19 Arformoterol Tartrate [Brovana] 15 mcg NEB BIDRESP #15 vial.neb 11/03/19 Diltiazem Cd [Cardizem Cd] 180 mg PO DAILY #30 cap 11/03/19 Glipizide [Glipizide Xl] 5 mg PO DAILY #30 tab.er.24 11/03/19 Mirtazapine [Remeron] 15 mg PO DAILY #30 tablet 11/03/19 Nebulizer and Compressor [[place] Choice Nebulizer] 1 each MC BID #1 each 11/03/19 Prednisone [Sterapred Ds] 20 mg PO BID #6 tab.ds.pk 11/03/19 - Past Medical/Surgical History Diabetic: Yes -: Hypertension -: Diabetes mellitus type 2 insulin dependent -: Alcohol abuse -: Chronic renal disease stage III -: GERD -: Cholecystectomy -: Left elbow surgery Psychosocial/ Personal History: Patient is . He lives at home. - Family History Father -: Cancer Notes: colon cancer - Social History Smoking Status: Never smoker Alcohol use: Yes CD- Drugs: No Caffeine use: No Place of Residence: Home Review of Systems General: As per HPI Eyes: Unremarkable Respiratory: Unremarkable Cardiovascular: Unremarkable Gastrointestinal: Unremarkable Genitourinary: Unremarkable Musculoskeletal: Unremarkable Integumentary: As per HPI (Pain to the rectal region) Neurological: Unremarkable Lymphatics: Unremarkable Physical Examination - Physical Exam General: Alert, In no apparent distress, Oriented x3, Cooperative HEENT: Atraumatic, Normocephalic, Mucous membr. moist/pink Neck: Supple Respiratory: Clear to auscultation bilaterally, Normal air movement Cardiovascular: Normal pulses, Regular rate/rhythm Gastrointestinal: Normal bowel sounds, Soft and benign, Non-distended, No tenderness, No masses, No rebound, No guarding Musculoskeletal: No erythema, No warmth Integumentary: Other (Pain to the right rectal buttocks region. There is an area of induration. No significant erythema noted.) Neurological: Normal speech, Normal strength at 5/5 x4 extr, Normal tone, Normal affect - Studies Laboratory Data (last 24 hrs) 06/28/20 13:04: WBC 12.7 H, Hgb 14.4, Hct 42.1, Plt Count 223 06/28/20 13:04: Sodium 130 L, Potassium 4.3, BUN 37 H, Creatinine 2.39 H, Glucose 355 H Assessment and Plan - Plan Impression: Rectal pain secondary to 5 cm perirectal abscess Acute on chronic renal failure stage 4 Diabetes mellitus type 2 insulin-dependent with hyperglycemia Hypertension GERD Obstructive sleep apnea Plan: Rectal pain secondary to 5 cm perirectal abscess: Patient admitted for further evaluation and treatment. Case discussed with surgery who was present during my examination. Patient is currently NPO. Surgery intervention will be required. Patient cleared from a medical standpoint. Patient will be monitored Overnite. Patient and family will need to be taught on wound care. Will provide IV fluids for the patient. Continue with home medication. Will provide DVT prophylaxis. Need to obtain home medications and restart. Anticipate improvement over the next 24 hr after surgical intervention. Acute on chronic renal failure stage 4: Will start IV fluids. Will consult Nephrology who sees the patient. Diabetes mellitus type 2 insulin-dependent with hyperglycemia: Will start basal insulin. Will check A1c. Will monitor Accu-Cheks and provide sliding scale. Hypertension: Need to obtain and restart home medication. Will provide medication. GERD: Need to obtain and restart home medication. Obstructive sleep apnea: Patient may use CPAP from home. Discharge Plan: Home Plan to discharge in: 24 Hours - Advance Directives Does patient have a Living Will: No Does patient have a Durable POA for Healthcare: No - Code Status/Comfort Care Code Status Assessed: Yes (Patient is full code) Time Spent Managing Pts Care (In Minutes): 55
[2020-06-28] MEDS: NA CHLORIDE 0.9% 1,000 ML ONE ×2 (15:25→15:34)
[2020-06-28] MEDS ORDERED: SUCCINYLCHOLINE 20 MG/ML (10 ML) IV ONE (15:25)
[2020-06-28] MEDS ORDERED: MIDAZOLAM HCL 2 MG/2 ML INJ ONE (15:27)
[2020-06-28] MEDS ORDERED: propofoL 200 MG/20 ML VIAL IV ONE (15:27)
[2020-06-28] MEDS ORDERED: FENTANYL CITR 100 MCG/2 ML ONE (15:27)
[2020-06-28] MEDS ORDERED: BUPIVACAINE 0.5% PF 10 ML VIAL ONE (15:34)
--- NOTE | 2020-06-28 15:46 | P.CNS ---
Date of Consult: 06/28/20 PC: This 65-year-old male presented emergency room with perirectal pain for diagnosis and treatment. HPC: Patient has had perirectal pain for the last few days. Has intensified. Was having trouble using the restroom. Today however the pain became unbearable, could no longer stand it and he came to the emergency room. PMH: Diabetes, renal insufficiency, sleep apnea PSHx: Any SOC: Allergic to acetaminophen SYS REVIEW: Denies any cough, wheeze, shortness of breath. No chest pain or palpitations. States he has been relatively regular, has occasional urinary issues. Good exercise tolerance O/E awake alert stable HEENT: Not jaundiced Chest: Chest movement equal bilaterally ABD: Negative. Rectal exam not performed, but obvious abscess in the perirectal area LOCO: Intact DATA: Elevated white cell count, CT scan shows abscess with air fluid levels IMPRESSION: Perirectal abscess PLAN: I will take him the operating room for incision, drainage, sharp debridement of this perirectal abscess. The risks of this procedure have been discussed. The possibility of bleeding, infection, injury to surrounding structures and muscles were explained. The possible Re formation and need for further surgeries and procedures was outlined. He understands and wants to proceed.
--- NOTE | 2020-06-28 16:33 | P.OP ---
Preoperative diagnosis: Perirectal abscess Postoperative diagnosis: The same Primary procedure: Examination under anesthesia Secondary procedure: Incision, drainage, sharp debridement of perirectal abscess Anesthesia: General Estimated blood loss: Than 10 cc Specimen: Cultures a aerobic and anaerobic were taken Operative Technique: The patient brought the operating room placed supine on the table. After the induction of adequate general endotracheal anesthesia, the patient was placed lithotomy position. At this point the area was prepped with a with IVs solution, and draped in usual aseptic manner. And on inspection of the anus we could see there was purulent material draining from the anus itself. An anal speculum was inserted. This was followed by 2 ray tecs sutured together. We were now able do expect the anal canal. We could see at the lower and that there was an opening through which was draining purulent material. There was also area of the right buttock that showed abscess that was pointing. A skin incision was made over this area of maximal fluctuance on the buttock. We cut a large amount of thick purulent material. Cultures both aerobic and anaerobic were taken. This area was now aspirated of its contents using the Yankauer suction. Gentle probing of this showed that there was an abscess communicating from the lower portion of the dentate line out laterally into this area. The area at the skin was kept open by placing a 2. Nylon and debrided out more laterally. The area was irrigated with a copious amount of saline solution to drain all the necrotic material. At this point if, with no more purulent material draining from either hole, the rectal tampon was removed. There is inject with 0.25% Marcaine. A sterile dressing was applied. This sees that the patient has a fistula is draining out laterally. It is possible that he will need further surgeries in the future. Hopefully however will close primarily. Complications: None Drain(s): Other (2. Nylon) Transferred to: Recovery Room Condition: Good
[2020-06-28] MEDS ORDERED: D50W 25 GM/50 ML SYRINGE/VIAL IV PRN (17:00)
[2020-06-28] MEDS ORDERED: MORPHINE 2 MG/ML SYR IV PRN (17:00)
[2020-06-28] MEDS: INSULIN -REGULAR HUMAN 50 UNIT/0.5 ML ML SQ SCH ×2 (17:00→20:52)
[2020-06-28] MEDS ORDERED: ONDANSETRON 4 MG/2 ML VIAL IV PRN (17:00)
[2020-06-28] MEDS: NA CHLORIDE 0.9% 1,000 ML IV SCH (17:00)
[2020-06-28] MEDS ORDERED: TRAMADOL HCL 50 MG TAB PO PRN (17:00)
[2020-06-28] MEDS ORDERED: HYDRALAZINE HCL 20 MG/ML VIAL IV PRN (17:00)
[2020-06-28] MEDS ORDERED: GLUCAGON 1 MG/VIAL IM PRN (17:00)
[2020-06-28] MEDS ORDERED: VANCOMYCIN 500 MG in NA CHLORIDE 0.9% 100 ML IVPB ONE (18:00)
[2020-06-28] MEDS: CEFEPIME/SWI 1gm 10 ML IVP SCH (18:22)
[2020-06-28 18:41] VITALS: BMI 28.0
[2020-06-28] MEDS ORDERED: INSULIN GLARGINE 100 UNITS/ML SQ SCH (21:00)
[2020-06-28] MEDS ORDERED: CEFEPIME 1 GM/VIAL IV SCH (21:00)
[2020-06-29] MEDS: NA CHLORIDE 0.9% 1,000 ML IV SCH ×2 (02:00→06:20)
[2020-06-29 05:40] LABS: Absolute Lymphocytes (CBC) 0.7 K/uL (0.7-4.9); Basophils % 0.2 % (0-1.3); Hematocrit 37.7 % (39.6-49.0); MPV 10.6 fL (7.6-11.3); RBC Red Blood Cell Count 4.07 M/uL (4.33-5.43)
[2020-06-29 05:53] LABS: Magnesium 2.2 mg/dL (1.8-2.4); Potassium 4.3 mmol/L (3.5-5.1)
--- NOTE | 2020-06-29 08:42 | P.DS ---
Admission Date: 06/28/20 Discharge Date: 06/29/20 Primary Care Provider: Dr. Horne; Nephrology-Dr. Michele Disposition: ROUTINE DISCHARGE Discharge Condition: GOOD Reason for Admission: Rectal pain Consultations: Surgery-Dr. Mark Nephrology-Dr. Michele Procedures: Surgery: Date: 06/28/20 Preoperative diagnosis: Perirectal abscess Postoperative diagnosis: The same Primary procedure: Examination under anesthesia Secondary procedure: Incision, drainage, sharp debridement of perirectal abscess Anesthesia: General Estimated blood loss: Than 10 cc Specimen: Cultures taken Complications: None Drain(s): Other (2. Nylon) Transferred to: Recovery Room Condition: Good Medical Problem List: Rectal pain secondary to 5 cm perirectal abscess status post incision, drainage and sharp debridement of perirectal abscess with noted fistula Acute on chronic renal failure stage 4 Diabetes mellitus type 2 insulin-dependent with hyperglycemia Hypertension GERD Obstructive sleep apnea Hyperlipidemia Brief History of Present Illness: 65-year-old male with history of chronic renal disease, diabetes, hypertension and obstructive sleep apnea. Patient reports rectal pain over the last several days. He went to see his PCP yesterday. Hemorrhoids were suspected. He was given suppositories to help with pain. Pain continued to get worse. He denied any melena, rectal bleeding. He denied any fever, chills. He came to the ER for severe pain. In the ER patient was evaluated. Vital signs stable. White count 12.7, hemoglobin 14. Platelet count 203. Neutrophils 88. Sodium 130, potassium 4.3. BUN of 37, creatinine 2.39 with a GFR of 27. Glucose 355. CT scan revealed a 5 cm perirectal abscess. Antibiotics were initiated. Surgeon was consulted. Patient admitted for treatment. When I saw the patient ER, pain was better controlled. Surgeon was present. Hospital Course: Patient presented with rectal pain secondary to 5 cm rectal abscess. Patient was admitted for further evaluation and treatment. Patient seen and evaluated by surgery. Surgical intervention was recommended. Patient had incision, drainage, and sharp debridement of the perirectal abscess. A fistula was identified. Patient has done well post operatively. Pain seems to be well controlled. Case discussed with surgery. Patient will go home with current wound care as recommended by surgery. At discharge patient will continue with Augmentin (250/5 mg/mL) 5 mL twice daily by and doxycycline 100 mg 1 pill twice for 7 days. Patient will be provided a limited supply of tramadol 50 mg 1 pill twice daily as needed for pain. The patient will need a follow up with surgery within 1 week to follow up this hospitalization and continue his care. The patient may require further surgical intervention to address the fistula. Will recommend donut seat for the patient. The patient will need a keep area dry. Will also recommend to continue stool softener, docusate 1 pill daily. Recommend soft food at discharge. Education on rectal abscess, fistula will be provided. Patient with acute on chronic renal disease stage IV. Patient received IV fluids. Renal function appears back to baseline. Nephrology was consulted. Recommend no further use of nonsteroidal anti-inflammatories. Future medications will need to be renally dose. Recommend recheck lab-BMP in 2-4 weeks to monitors progress. Follow up with nephrology as an outpatient to further address. Patient with diabetes mellitus type 2 insulin-dependent with hyperglycemia. Hemoglobin A1c 11.2. Diabetes needs to be better controlled. Recommend to monitor blood sugar at least twice daily. Recommend to maintain blood sugar less than 140 fasting and less than 200 after meals. Discharge patient will continue with his insulin [id number] 35 units subcu 3 times a day. Further adjustment in medication may be required. This can be further addressed by his PCP. Patient with hypertension. This has remained stable. At discharge patient will continue with his medication-lisinopril 2.5 mg daily and losartan 50 mg 1 pill twice daily. Patient with GERD. At discharge he will continue with his medication-Protonix 40 mg daily. Patient with hyperlipidemia. At discharge patient will continue with Lipitor 20 mg daily. Patient with obstructive sleep apnea. Patient will continue with CPAP at home. Vital Signs/Physical Exam: Temp Pulse Resp BP Pulse Ox 97.4 F 70 19 138/63 97 06/29/20 04:00 06/29/20 04:00 06/29/20 04:48 06/29/20 04:00 06/29/20 04:48 General: Alert, In no apparent distress, Oriented x3, Cooperative HEENT: Atraumatic Neck: Supple Respiratory: Normal air movement Cardiovascular: Normal pulses, Regular rate/rhythm Integumentary: Other (Bandages to the rectal area.) Neurological: Normal speech, Normal strength at 5/5 x4 extr, Normal tone, Normal affect Laboratory Data at Discharge: WBC 9.5 K/uL (4.3-10.9) D 06/29/20 05:15 Hgb 13.1 g/dL (13.6-17.9) L 06/29/20 05:15 Hct 37.7 % (39.6-49.0) L 06/29/20 05:15 Plt Count 148 K/uL (152-406) L D 06/29/20 05:15 Sodium 135 mmol/L (136-145) L 06/29/20 05:15 Potassium 4.3 mmol/L (3.5-5.1) 06/29/20 05:15 BUN 35 mg/dL (7-18) H 06/29/20 05:15 Creatinine 1.99 mg/dL (0.55-1.3) H 06/29/20 05:15 Glucose 303 mg/dL (74-106) H 06/29/20 05:15 Magnesium 2.2 mg/dL (1.8-2.4) 06/29/20 05:15 Home Medications: Pantoprazole Sodium 40 mg PO DAILY 08/20/18 Atorvastatin Calcium [Lipitor*] 20 mg PO BEDTIME 11/01/19 Insulin Lispro [Humalog Kwikpen U-200] 35 unit SQ TID* 06/28/20 Lisinopril [Zestril] 2.5 mg PO DAILY 06/28/20 Losartan Potassium [Cozaar*] 50 mg PO BID 06/28/20 Amoxicillin/Potassium Clav [Augmentin 250-62.5 mg/5 ml] 5 ml PO BID #1 bottle 06/29/20 Docusate [Colace Cap*] 100 mg PO DAILY #14 cap 06/29/20 Doxycycline Hyclate 100 mg PO BID #14 tablet 06/29/20 traMADol HCL [Ultram*] 50 mg PO TID PRN #10 tab 06/29/20 New Medications: Amoxicillin/Potassium Clav [Augmentin 250-62.5 mg/5 ml] 5 ml PO BID #1 bottle Docusate [Colace Cap*] 100 mg PO DAILY #14 cap Doxycycline Hyclate 100 mg PO BID #14 tablet traMADol HCL [Ultram*] 50 mg PO TID PRN #10 tab PRN Reason: Pain Patient Discharge Instructions: 1. Recommend follow up with PCP in 1 week to follow up hospitalization. 2. Patient presented with rectal pain secondary to 5 cm rectal abscess. Patient was admitted for further evaluation and treatment. Patient seen and evaluated by surgery. Surgical intervention was recommended. Patient had incision, drainage, and sharp debridement of the perirectal abscess. A fistula was identified. Patient has done well post operatively. Pain seems to be well controlled. Case discussed with surgery. Patient will go home with current wound care as recommended by surgery. At discharge patient will continue with Augmentin (250/5 mg/mL) 5 mL twice daily by and doxycycline 100 mg 1 pill twice for 7 days. Patient will be provided a limited supply of tramadol 50 mg 1 pill twice daily as needed for pain. The patient will need a follow up with surgery within 1 week to follow up this hospitalization and c ontinue his care. The patient may require further surgical intervention to address the fistula. Will recommend donut seat for the patient. The patient will need a keep area dry. Will also recommend to continue stool softener, docusate 1 pill daily. Recommend soft food at discharge. Education on rectal abscess, fistula will be provided. 3. Patient with acute on chronic renal disease stage IV. Patient received IV fluids. Renal function appears back to baseline. Nephrology was consulted. Recommend no further use of nonsteroidal anti-inflammatories. Future medications will need to be renally dose. Recommend recheck lab-BMP in 2-4 weeks to monitors progress. Follow up with nephrology as an outpatient to further address. 4. Patient with diabetes mellitus type 2 insulin-dependent with hyperglycemia. Hemoglobin A1c 11.2. Diabetes needs to be better controlled. Recommend to monitor blood sugar at least twice daily. Recommend to maintain blood sugar less than 140 fasting and less than 200 after meals. Discharge patient will continue with his insulin [id number] 35 units subcu 3 times a day. Further adjustment in medication may be required. This can be further addressed by his PCP. 5. Patient with hypertension. This has remained stable. At discharge patient will continue with his medication-lisinopril 2.5 mg daily and losartan 50 mg 1 pill twice daily. 6. Patient with GERD. At discharge he will continue with his medication-Protonix 40 mg daily. 7. Patient with hyperlipidemia. At discharge patient will continue with Lipitor 20 mg daily. 8. Patient with obstructive sleep apnea. Patient will continue with CPAP at home. Diet: Renal Activity: Ad cynthia Time spent managing pt's care (in minutes): 55
[2020-06-29] MEDS: CEFEPIME/SWI 1gm 10 ML IVP SCH (08:45)
[2020-06-29] MEDS: INSULIN -REGULAR HUMAN 50 UNIT/0.5 ML ML SQ SCH ×2 (08:46→11:57)
[2020-06-29] MEDS ORDERED: INSULIN GLARGINE 100 UNITS/ML SQ SCH (09:00)
[2020-06-29] MEDS ORDERED: VANCOMYCIN 1 GM in NA CHLORIDE 0.9% 500 ML IVPB SCH (09:00)
[2020-06-29] MEDS ORDERED: ENOXAPARIN 30 MG/0.3 ML SQ SCH (09:00)
[2020-06-29 09:07] VITALS: O2SAT 96
--- NOTE | 2020-06-29 11:19 | P.CNS ---
Date of Consult: 06/29/20 Reason for Consult: MITCHEL , CKD Primary Care Provider: Dr. Horne; Nephrology-Dr. Michele Chief Complaint: Rectal pain History of Present Illness: A 65-year-old gentleman, hypertension, hyperlipidemia, diabetes since 2006 com plicated with neuropathy and nephropathy, CKD III baseline Cr 1.6-2.0 presented with gulteal pain, found to have abscess , S/P I&D Cr 2.4 in ER no fever , chills ,nausea, or vomiting Physical exam general: AAOX3, NAD , obese Neck; Supple, No elevated JVD hear: RRR, normal S1,2 no murmur or rub Chest: CTAB, no rlaes or wheezes Abdomen: Soft , Nt Extremities No edema or ulcer MITCHEL on CKD III cr micah near baseline will dc IVF can be disscharged from nephrology point of view DM as per primary HTN Bp controlled gluteal abscess S/O I&D con Abx Allergies acetaminophen Allergy (Verified 08/19/18 21:59) Hives Home Medications: Pantoprazole Sodium 40 mg PO DAILY 08/20/18 Atorvastatin Calcium [Lipitor*] 20 mg PO BEDTIME 11/01/19 Insulin Lispro [Humalog Kwikpen U-200] 35 unit SQ TID* 06/28/20 Lisinopril [Zestril] 2.5 mg PO DAILY 06/28/20 Losartan Potassium [Cozaar*] 50 mg PO BID 06/28/20 Amoxicillin/Potassium Clav [Augmentin 250-62.5 mg/5 ml] 5 ml PO BID #1 bottle 06/29/20 Docusate [Colace Cap*] 100 mg PO DAILY #14 cap 06/29/20 Doxycycline Hyclate 100 mg PO BID #14 tablet 06/29/20 traMADol HCL [Ultram*] 50 mg PO TID PRN #10 tab 06/29/20 - Past Medical/Surgical History Diabetic: Yes -: Diabetic -: GERD -: ANAHY -: Chronic renal disease stage III -: GERD -: Cholecystectomy -: Left elbow surgery Psychosocial/ Personal History: Patient is . He lives at home. - Family History Father Medical History: Cancer Notes: colon cancer - Social History Smoking Status: Current some day smoker Alcohol use: Yes CD- Drugs: No Caffeine use: No Place of Residence: Home Physical Examination Temp Pulse Resp BP Pulse Ox 97.6 F 64 18 122/56 L 98 06/29/20 08:00 06/29/20 08:00 06/29/20 09:47 06/29/20 08:00 06/29/20 09:47 Laboratory Data (last 24 hrs) 06/28/20 13:04: WBC 12.7 H, Hgb 14.4, Hct 42.1, Plt Count 223 06/28/20 13:04: Sodium 130 L, Potassium 4.3, BUN 37 H, Creatinine 2.39 H, Glucose 355 H
--- NOTE | 2020-06-29 11:40 | EKG ---
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
--- NOTE | 2020-06-29 13:48 | RAD REPORT ---
EXAM DESCRIPTION: CT - Pelvis Wo Cont - 06/29/2020 7:27 am CLINICAL HISTORY: perirectal abscess Pelvic pain COMPARISON: No comparisons TECHNIQUE: All CT scans are performed using dose optimization technique as appropriate and may inclu de automated exposure control or mA/KV adjustment according to patient size. FINDINGS: Limited non IV contrast study was performed. A complex collection is seen in the perirectal soft tissues containing small air bubbles measuring 5. 4 x 3.5 cm compatible with a perirectal abscess. This extends superiorly to the level of the urogenit al diaphragm. This complex collection is predominant posterior to the located although it extends fro m along the left and right aspect of the ischiorectal fossa. Small fat containing right inguinal hernia. No intrapelvic mass or ascites. IMPRESSION: Large perirectal abscess as detailed above.
[2020-06-29 18:03] VITALS: BP 128/61; TEMP 97.9
[2020-06-30] MEDS ORDERED: VANCOMYCIN 1.5 GM in NA CHLORIDE 0.9% 500 ML IVPB SCH (06:00)
== END 2020-06-29 15:00 | disposition home or self-care (01) ==
LOC: ER 12:04 → ERHOLD 14:40 → 2ND 17:03
PROVIDERS: ADMIT Family Medicine; ATTEND Family Medicine
PROC: 0D9P3ZZ Drainage of Rectum, Percutaneous Approach (ICD-10-PCS; principal; 2020-06-28 14:00)
DX: K61.1 Rectal abscess (principal); I12.9 Hypertensive chronic kidney disease with stage 1 through stage 4 chronic kidney disease, or unspecified chronic kidney disease; N18.4 Chronic kidney disease, stage 4 (severe); E78.5 Hyperlipidemia, unspecified; E11.65 Type 2 diabetes mellitus with hyperglycemia; E11.22 Type 2 diabetes mellitus with diabetic chronic kidney disease; E11.40 Type 2 diabetes mellitus with diabetic neuropathy, unspecified; N17.9 Acute kidney failure, unspecified; Z20.828 Contact with and (suspected) exposure to other viral communicable diseases; R94.31 Abnormal electrocardiogram [ECG] [EKG]; Z79.4 Long term (current) use of insulin; K21.9 Gastro-esophageal reflux disease without esophagitis; G47.33 Obstructive sleep apnea (adult) (pediatric)
CPT/HCPCS: 36415; 72192; 80048; 82565; 82947; 83036; 83735; 85025; 87040; 93005; 96365; 96375; 99285; G0378; J0330; J0692; J1650; J1815; J2250; J2270; J2405; J2704; J3010; J3370; J7030; J7040; U0002

== ENCOUNTER 2020-08-25 04:28 | Inpatient (IN) | payer OTHER ==
[2020-08-25 04:53] LABS: Hematocrit 38.9 % (39.6-49.0); RBC Red Blood Cell Count 4.08 M/uL (4.33-5.43)
[2020-08-25 04:54] LABS: Absolute Lymphocytes (CBC) 1.6 K/uL (0.7-4.9); Basophils % 0.3 % (0-1.3); Lymphocytes % 22.5 % (15.3-44.8)
[2020-08-25 04:56] LABS: Protime INR 0.94
[2020-08-25] MEDS ORDERED: MORPHINE 2 MG/ML SYR ONE ×2 (05:12→06:02)
[2020-08-25] MEDS ORDERED: ASPIRIN 81 MG CHEWABLE TABLET ONE (05:12)
[2020-08-25 05:13] LABS: ALT/SGPT 18 U/L (12-78); AST/SGOT 18 U/L (15-37); Albumin 3.9 g/dL (3.4-5.0); Alkaline Phosphatase 177 U/L (45-117); BUN Blood Urea Nitrogen 23 mg/dL (7-18); Bicarbonate 25 mmol/L (21-32); Bilirubin Direct 0.2 mg/dL (0-0.2); Bilirubin Total 0.7 mg/dL (0.2-1.0); Glucose Level 183 mg/dL (74-106); Lipase 451 U/L (73-393); Magnesium 2.4 mg/dL (1.8-2.4); NT PRO-BNP 256 pg/mL (<125); Potassium 4.8 mmol/L (3.5-5.1); Protein, Total 7.8 g/dL (6.4-8.2); Sodium Level 128 mmol/L (136-145); Troponin (Emerg Dept Use Only) < 0.02 ng/mL (0.0-0.045)
[2020-08-25] MEDS ORDERED: ENOXAPARIN 100 MG/ML SYR SQ ONE (05:13)
[2020-08-25] MEDS ORDERED: ONDANSETRON 4 MG/2 ML VIAL ONE ×3 (05:13→09:23)
[2020-08-25] MEDS ORDERED: FAMOTIDINE 20 MG/2 ML VIAL IV ONE (05:13)
[2020-08-25] MEDS ORDERED: NA CHLORIDE 0.9% 1,000 ML ONE ×4 (05:13→17:54)
--- NOTE | 2020-08-25 06:42 | EDPHYS ---
Physician Documentation [facility] Name: Shreyas Mckeon Age: 65 yrs Sex: Male : 1955 Arrival Date: 08/25/2020 Time: 04: Bed 6 Private MD: Senthil Horne E ED Physician Jose Mckeon HPI: 08/25 04:52 This 65 yrs old Male presents to ER via Wheelchair with complaints of Chest devan Pain. 04:52 The patient or guardian reports chest pain that is located primarily in the substernal devan area, epigastric area, anterior chest wall, bilaterally. Onset: 19 hour(s) ago. The pain does not radiate. Associated signs and symptoms: Pertinent positives: lightheadedness, shortness of breath. The chest pain is described as a pressure, squeezing. Duration: The patient or guardian reports a single episode, that is still ongoing. Modifying factors: The symptoms are alleviated by nothing. the symptoms are aggravated by nothing. Severity of pain: At its worst the pain was moderate today, yesterday. The patient has not experienced similar symptoms in the past. Historical: - Allergies: 04:47 ACETAMINOPHEN; ll2 - PMHx: 04:47 Diabetes - NIDDM; Hypertension; kidney disease; Left foot wound; ll2 - Immunization history:: Adult Immunizations up to date. - Social history:: Smoking status: unknown. ROS: 04:55 Constitutional: Negative for fever, chills, and weight loss, Eyes: Negative for injury, devan pain, redness, and discharge, ENT: Negative for injury, pain, and discharge, Neck: Negative for injury, pain, and swelling, Respiratory: Negative for shortness of breath, cough, wheezing, and pleuritic chest pain, Abdomen/GI: Negative for abdominal pain, nausea, vomiting, diarrhea, and constipation, Back: Negative for injury and pain, : Negative for injury, bleeding, discharge, and swelling, MS/Extremity: Negative for injury and deformity, Skin: Negative for injury, rash, and discoloration, Neuro: Negative for headache, weakness, numbness, tingling, and seizure, Psych: Negative for depression, anxiety, suicide ideation, homicidal ideation, and hallucinations, Allergy/Immunology: Negative for hives, rash, and allergies, Endocrine: Negative for neck swelling, polydipsia, polyuria, polyphagia, and marked weight changes, Hematologic/Lymphatic: Negative for swollen nodes, abnormal bleeding, and unusual bruising. 04:55 Cardiovascular: Positive for chest pain, of the chest. Exam: 04:55 Constitutional: This is a well developed, well nourished patient who is awake, alert, devan and in no acute distress. Head/Face: Normocephalic, atraumatic. Eyes: Pupils equal round and reactive to light, extra-ocular motions intact. Lids and lashes normal. Conjunctiva and sclera are non-icteric and not injected. Cornea within normal limits. Periorbital areas with no swelling, redness, or edema. ENT: Nares patent. No nasal discharge, no septal abnormalities noted. Tympanic membranes are normal and external auditory canals are clear. Oropharynx with no redness, swelling, or masses, exudates, or evidence of obstruction, uvula midline. Mucous membranes moist. Neck: Trachea midline, no thyromegaly or masses palpated, and no cervical lymphadenopathy. Supple, full range of motion without nuchal rigidity, or vertebral point tenderness. No Meningismus. Chest/axilla: Normal chest wall appearance and motion. Nontender with no deformity. No lesions are appreciated. Cardiovascular: Regular rate and rhythm with a normal S1 and S2. No gallops, murmurs, or rubs. Normal PMI, no JVD. No pulse deficits. Respiratory: Lungs have equal breath sounds bilaterally, clear to auscultation and percussion. No rales, rhonchi or wheezes noted. No increased work of breathing, no retractions or nasal flaring. Abdomen/GI: Soft, non-tender, with normal bowel sounds. No distension or tympany. No guarding or rebound. No evidence of tenderness throughout. Back: No spinal tenderness. No costovertebral tenderness. Full range of motion. Male : Normal genitalia with no discharge or lesions. Skin: Warm, dry with normal turgor. Normal color with no rashes, no lesions, and no evidence of cellulitis. Neuro: Awake and alert, GCS 15, oriented to person, place, time, and situation. Cranial nerves II-XII grossly intact. Motor strength 5/5 in all extremities. Sensory grossly intact. Cerebellar exam normal. Normal gait. Psych: Awake, alert, with orientation to person, place and time. Behavior, mood, and affect are within normal limits. 04:55 Musculoskeletal/extremity: ROM: no acute changes, intact in all extremities, Circulation is intact in all extremities. Sensation intact. Weight bearing: able to fully bear weight, DVT Exam: No signs of deep vein thrombosis. no pain, no swelling, no tenderness, negative Homans' sign noted on exam, no appreciated bluish discoloration, no erythema, no increased warmth. 05:49 ECG was reviewed by the Attending Physician. [facility] Vital Signs: 04:44 BP 150 / 76; Pulse 69; Resp 13; Temp 98.1; Pulse Ox 98% on R/A; ll2 04:49 BP 142 / 57; Pulse 72; Resp 16; Temp 98.1; Pulse Ox 98% ; ll2 04:55 Weight 88.45 kg; rv 05:41 BP 119 / 59; Pulse 68; Resp 18; Pulse Ox 95% ; ll2 06:45 BP 154 / 50; Pulse 87; Resp 16; Pulse Ox 97% ; ll2 07:45 BP 127 / 53; Pulse 80; Resp 17; Pulse Ox 97% on R/A; tw2 10:02 BP 136 / 56; Pulse 98; Resp 15; Pulse Ox 97% ; jl7 12:47 BP 150 / 62; Pulse 96; Resp 17; Pulse Ox 95% ; jl7 15:00 BP 156 / 65; Pulse 91; Resp 17; Pulse Ox 97% ; jl7 MDM: 04:32 Patient medically screened. [facility] 04:56 Differential diagnosis: abnormal EKG, acute myocardial infarction, chest wall pain, devan cholecystitis, Cholelithiasis hiatal hernia, pancreatitis, pleurisy, pulmonary embolus, stable angina, unstable angina. HEART Score: History: Moderately Suspicious (1), ECG: Non specific repolarization disturbance / LBTB / PM (1), Age: > or = 65 years (2), Risk Factors: > or = 3 Risk factors for atherosclerotic disease (2), [Hypercholesterolemia] [Hypertension] [DM] [+ Family HX] Troponin: < or = 1 x Normal Limit (0). The patient was given aspirin in the Emergency Department. The patient's deep vein thrombosis risk score was calculated as follows: Total Score: 0. This patient was found to be at low risk for a deep vein thrombosis by using the Well's assessment criteria. The patient's pulmonary embolism risk score was calculated as follows: Total Score: 0-2 points. This patient was found to be at low risk for a pulmonary embolism by using the Well's assessment criteria. BARAK Risk Score: 1 - patient's age is greater or equal to 65 years, 1 - Three or more CAD risk factors, 1- Known CAD, 1 - ASA use in past 7 days, TOTAL SCORE = 4. Data reviewed: vital signs, nurses notes. Data interpreted: groundwater monitoring technician: rate is 69 beats/min, rhythm is regular, Pulse oximetry: on room air is 98 %. Test interpretation: by ED physician or midlevel provider: ECG, plain radiologic studies. 08/25 04:33 Order name: Basic Metabolic Panel; Complete Time: 05:24 [facility] 08/25 04:33 Order name: CBC with Diff; Complete Time: 04:59 [facility] 08/25 04:33 Order name: LFT's; Complete Time: 05:24 [facility] 08/25 04:33 Order name: Magnesium; Complete Time: 05:24 [facility] 08/25 04:33 Order name: NT PRO-BNP; Complete Time: 05:24 [facility] 08/25 04:33 Order name: PT-INR; Complete Time: 04:59 [facility] 08/25 04:33 Order name: Troponin (emerg Dept Use Only); Complete Time: 05:24 [facility] 08/25 04:33 Order name: XRAY Chest (1 view) [facility] 08/25 04:33 Order name: Lipase; Complete Time: 05:24 [facility] 08/25 06:20 Order name: Abdomen EDOR 08/25 04:33 Order name: EKG; Complete Time: 04:34 [facility] 08/25 04:33 Order name: Cardiac monitoring; Complete Time: 07:04 [facility] 08/25 04:33 Order name: EKG - Nurse/Tech; Complete Time: 07:04 [facility] 08/25 04:33 Order name: IV Saline Lock; Complete Time: 07:04 [facility] 08/25 04:33 Order name: Labs collected and sent; Complete Time: 07:04 [facility] 08/25 04:33 Order name: O2 Per Protocol; Complete Time: 07:04 [facility] 08/25 04:33 Order name: O2 Sat Monitoring; Complete Time: 07:04 [facility] 08/25 07:06 Order name: NPO; Complete Time: 07:39 [facility] EC:49 Rate is 73 beats/min. Rhythm is regular. QRS [place] is Normal. CA interval is prolonged devan at 232 msec. QRS interval is normal. QT interval is normal. No Q waves. T waves are Normal. No ST changes noted. Clinical impression: NSR w/ Non-specific ST/T Changes, 1st degree heart block, and No evidence of ischemia. Interpreted by me. Reviewed by me. Administered Medications: 04:49 CANCELLED (Duplicate Order): Aspirin 81 mg PO once devan 05:22 Drug: morphine 2 mg Route: IVP; Site: right antecubital; ll2 05:22 Drug: Zofran (Ondansetron) 4 mg Route: IVP; Site: right antecubital; ll2 05:55 Follow up: Response: No adverse reaction; Nausea is decreased ll2 05:22 Drug: Pepcid 20 mg Route: IVP; Site: right antecubital; ll2 05:54 Follow up: Response: No adverse reaction ll2 05:23 Drug: NS 0.9% 1000 ml Route: IV; Rate: 125 ml/hr; Site: right antecubital; ll2 12:45 Follow up: IV Status: Completed infusion jl7 05:23 Drug: Aspirin Chewable Tablet 162 mg Route: PO; ll2 05:55 Follow up: Response: No adverse reaction ll2 05:23 Drug: Lovenox 1 mg/kg Route: Sub-Q; Site: abdomen; ll2 05:55 Follow up: Response: No adverse reaction ll2 05:38 Drug: NS 0.9% 1000 ml Route: IV; Rate: 1 bolus; Site: right antecubital; ll2 07:00 Follow up: Response: No adverse reaction; IV Status: Completed infusion; IV Intake: jl7 1000ml 05:52 Drug: morphine 2 mg Route: IVP; Site: right antecubital; ll2 06:43 Follow up: Response: No adverse reaction; Pain is unchanged, physician notified ll2 06:42 Drug: Thiamine 100 mg Route: IV; Rate: per protocol; Site: right antecubital; ll2 07:00 Follow up: Response: No adverse reaction; IV Status: Completed infusion jl7 06:42 Drug: morphine 4 mg Route: IVP; Site: right antecubital; ll2 07:00 Follow up: Response: No adverse reaction; Pain is unchanged, physician notified jl7 06:43 Drug: NS 0.9% 1000 ml Route: IV; Rate: 1 bolus; Site: right antecubital; ll2 07:58 Follow up: Response: No adverse reaction; IV Status: Completed infusion; IV Intake: jl7 1000ml 09:11 Drug: Zofran (Ondansetron) 4 mg Route: IVP; Site: right antecubital; jl7 09:45 Follow up: Response: No adverse reaction; Nausea unchanged [facility] 09:58 Drug: Ativan 2 mg Route: IVP; Site: right forearm; jl7 11:00 Follow up: Response: No adverse reaction; Marked relief of symptoms jl7 Disposition: 08/25/20 06:41 Hospitalization ordered by Jeremias Oviedo for Inpatient Admission. Preliminary diagnosis are Chest pain, unspecified, Type 2 diabetes mellitus, Unspecified kidney failure - chronic, Other abdominal pain, Acute pancreatitis. - Bed requested for Intensive Care Unit. - Status is Inpatient Admission. eb - Condition is Fair. - Problem is new. - Symptoms have improved. Signatures: Dispatcher [employer] EDOR Jose Mckeon MD MD cha Leal, Jahala, RN RN jl7 Dariel Martini RN RN ja1 Shagufta Phillips Lacie, RN RN ll2 Corrections: (The following items were deleted from the chart) 04:49 04:33 Aspirin 81 mg PO once ordered. [facility] 06:20 05:27 Abdomen Pelvis W Con+CT.RAD.BRZ ordered. [facility] 09:38 06:41 Hospitalization Ordered by Jeremias Oviedo MD for Inpatient Admission. Preliminary ja1 diagnosis is Chest pain, unspecified; Type 2 diabetes mellitus; Unspecified kidney failure - chronic; Other abdominal pain; Acute pancreatitis. Bed requested for Telemetry/MedSurg (Inpatient). Status is Inpatient Admission. Condition is Fair. Problem is new. Symptoms have improved. [facility] 15:37 09:38 08/25/2020 06:41 Hospitalization Ordered by Jeremias Oviedo MD for Inpatient eb Admission. Preliminary diagnosis is Chest pain, unspecified; Type 2 diabetes mellitus; Unspecified kidney failure - chronic; Other abdominal pain; Acute pancreatitis. Bed requested for Intensive Care Unit. Status is Inpatient Admission. Condition is Fair. Problem is new. Symptoms have improved. ja1
--- NOTE | 2020-08-25 06:42 | ER ---
Nurse's Notes [facility] Name: Shreyas Mckeon Age: 65 yrs Sex: Male : 1955 Arrival Date: 08/25/2020 Time: 04: Bed 6 Private MD: Senthil Horne E Diagnosis: Chest pain, unspecified;Type 2 diabetes mellitus;Unspecified kidney failure-chronic;Other abdominal pain;Acute pancreatitis Presentation: 08/25 04:44 Chief complaint: Patient states: chest pain that started in the belly this evening then ll2 radiated to the chest, and states he just doesn't feel good. just began today, does have a history of HTN and diabetes, states he has not taken his blood pressure medicine today. Coronavirus screen: Client denies travel out of the [place] in the last 14 days. At this time, the client does not indicate any symptoms associated with coronavirus-19. Ebola Screen: Patient negative for fever greater than or equal to 101.5 degrees Fahrenheit, and additional compatible Ebola Virus Disease symptoms. Initial Sepsis Screen: Does the patient meet any 2 criteria? No. Patient's initial sepsis screen is negative. Does the patient have a suspected source of infection? No. Patient's initial sepsis screen is negative. Risk Assessment: Do you want to hurt yourself or someone else? Patient reports no desire to harm self or others. Onset of symptoms was August 24, 2020. 04:44 Method Of Arrival: Wheelchair ll2 04:44 Acuity: FRIDA 3 ll2 Triage Assessment: 04:47 General: Appears in no apparent distress. Behavior is calm, cooperative, appropriate ll2 for age. Pain: Complains of pain in xyphoid area and mid-sternal area. EENT: No signs and/or symptoms were reported regarding the EENT system. Neuro: Level of Consciousness is awake, alert, obeys commands, Oriented to person, place, time, situation. Cardiovascular: Patient's skin is warm and dry. Respiratory: Airway is patent Respiratory effort is even, unlabored, Respiratory pattern is regular, symmetrical. GI: No signs and/or symptoms were reported involving the gastrointestinal system. : No signs and/or symptoms were reported regarding the genitourinary system. Derm: Skin is intact, is healthy with good turgor, Skin is dry, Skin is pink, warm \\T\\ dry. Musculoskeletal: Circulation, motion, and sensation intact. Range of motion: intact in all extremities. Historical: - Allergies: 04:47 ACETAMINOPHEN; ll2 - PMHx: 04:47 Diabetes - NIDDM; Hypertension; kidney disease; Left foot wound; ll2 - Immunization history:: Adult Immunizations up to date. - Social history:: Smoking status: unknown. Screenin:49 Abuse screen: Denies threats or abuse. Nutritional screening: No deficits noted. ll2 Tuberculosis screening: No symptoms or risk factors identified. Fall Risk None identified. Assessment: 04:49 Reassessment: see triage assessment. ll2 04:51 Pain: Pain does not radiate. Pain began 4 hours ago. ll2 05:39 Reassessment: Patient and/or family updated on plan of care and expected duration. Pain ll2 level reassessed. Patient is alert, oriented x 3, equal unlabored respirations, skin warm/dry/pink. 05:53 Reassessment: update given to . [phone] jese mckeon. ll2 06:44 Reassessment: Patient and/or family updated on plan of care and expected duration. Pain ll2 level reassessed. Patient is alert, oriented x 3, equal unlabored respirations, skin warm/dry/pink. 08:02 Reassessment: Hospitalist at bedside assessing pt and discussing POC. jl7 09:10 Reassessment: Pt actively vomiting, 4 mg Zofran IVP administered as ordered via [address] written orders from hospitalist. 09:55 Reassessment: Pt states "Can I have something for withdrawals." Pt reports he drinks 6 jl7 beers daily, last drink was yesterday, unsure of what time. Hospitalist notified and put written ordered [facility] for 2 mg Ativan IVP, medicated as ordered. 11:00 Reassessment: Pt laying in bed with eyes closed, respirations even and unlabored, no jl7 signs of distress noted. 12:00 Reassessment: Patient appears in no apparent distress at this time. Patient and/or [facility] family updated on plan of care and expected duration. Pain level reassessed. Patient states feeling better. Patient states symptoms have improved. 13:00 Reassessment: Patient appears in no apparent distress at this time. No changes from jl7 previously documented assessment. Patient and/or family updated on plan of care and expected duration. Pain level reassessed. Patient is alert, oriented x 3, equal unlabored respirations, skin warm/dry/pink. Vital Signs: 04:44 BP 150 / 76; Pulse 69; Resp 13; Temp 98.1; Pulse Ox 98% on R/A; ll2 04:49 BP 142 / 57; Pulse 72; Resp 16; Temp 98.1; Pulse Ox 98% ; ll2 04:55 Weight 88.45 kg; rv 05:41 BP 119 / 59; Pulse 68; Resp 18; Pulse Ox 95% ; ll2 06:45 BP 154 / 50; Pulse 87; Resp 16; Pulse Ox 97% ; ll2 07:45 BP 127 / 53; Pulse 80; Resp 17; Pulse Ox 97% on R/A; tw2 10:02 BP 136 / 56; Pulse 98; Resp 15; Pulse Ox 97% ; jl7 12:47 BP 150 / 62; Pulse 96; Resp 17; Pulse Ox 95% ; jl7 15:00 BP 156 / 65; Pulse 91; Resp 17; Pulse Ox 97% ; jl7 ED Course: 04:29 Patient arrived in ED. am2 04:29 Senthil Horne MD is Private Physician. am2 04:32 Jose Mckeon MD is Attending Physician. devan 04:44 Radha Ro, BRICE is Primary Nurse. ll2 04:47 Triage completed. ll2 04:49 Patient has correct armband on for positive identification. Bed in low position. Call 2 light in reach. Side rails up X 1. grit blaster on. Pulse ox on. NIBP on. 04:49 No provider procedures requiring assistance completed. Initial lab(s) drawn, by ED ll2 staff, sent to lab. EKG done, by audiovisual technician. Inserted saline lock: 20 gauge in right antecubital area, using aseptic technique. ,using aseptic technique. inserted by BRICE Curtis Blood collected. 04:52 Patient maintains SpO2 saturation greater than 95% on room air. ll2 05:14 XRAY Chest (1 view) In Process Unspecified. EDMS 05:40 Warm blanket given. ll2 05:42 Arm band placed on right wrist. EKG completed in triage. Results shown to MD. ll2 06:25 Abdomen In Process Unspecified. EDMS 06:39 Jeremias Oviedo MD is Hospitalizing Provider. devan 07:06 Report given to BRICE Petit. ll2 07:47 Primary Nurse role handed off by Radha Ro RN jl7 07:47 Marisabel Carpenter RN is Primary Nurse. jl7 09:45 Inserted saline lock: 20 gauge in right forearm, using aseptic technique. jl7 12:49 Patient admitted, IV remains in place. intact, No redness/swelling at site. jl7 Administered Medications: 04:49 CANCELLED (Duplicate Order): Aspirin 81 mg PO once devan 05:22 Drug: morphine 2 mg Route: IVP; Site: right antecubital; ll2 05:22 Drug: Zofran (Ondansetron) 4 mg Route: IVP; Site: right antecubital; ll2 05:55 Follow up: Response: No adverse reaction; Nausea is decreased ll2 05:22 Drug: Pepcid 20 mg Route: IVP; Site: right antecubital; ll2 05:54 Follow up: Response: No adverse reaction ll2 05:23 Drug: NS 0.9% 1000 ml Route: IV; Rate: 125 ml/hr; Site: right antecubital; ll2 12:45 Follow up: IV Status: Completed infusion jl7 05:23 Drug: Aspirin Chewable Tablet 162 mg Route: PO; ll2 05:55 Follow up: Response: No adverse reaction ll2 05:23 Drug: Lovenox 1 mg/kg Route: Sub-Q; Site: abdomen; ll2 05:55 Follow up: Response: No adverse reaction ll2 05:38 Drug: NS 0.9% 1000 ml Route: IV; Rate: 1 bolus; Site: right antecubital; ll2 07:00 Follow up: Response: No adverse reaction; IV Status: Completed infusion; IV Intake: jl7 1000ml 05:52 Drug: morphine 2 mg Route: IVP; Site: right antecubital; ll2 06:43 Follow up: Response: No adverse reaction; Pain is unchanged, physician notified ll2 06:42 Drug: Thiamine 100 mg Route: IV; Rate: per protocol; Site: right antecubital; ll2 07:00 Follow up: Response: No adverse reaction; IV Status: Completed infusion jl7 06:42 Drug: morphine 4 mg Route: IVP; Site: right antecubital; ll2 07:00 Follow up: Response: No adverse reaction; Pain is unchanged, physician notified jl7 06:43 Drug: NS 0.9% 1000 ml Route: IV; Rate: 1 bolus; Site: right antecubital; ll2 07:58 Follow up: Response: No adverse reaction; IV Status: Completed infusion; IV Intake: jl7 1000ml 09:11 Drug: Zofran (Ondansetron) 4 mg Route: IVP; Site: right antecubital; jl7 09:45 Follow up: Response: No adverse reaction; Nausea unchanged jl7 09:58 Drug: Ativan 2 mg Route: IVP; Site: right forearm; jl7 11:00 Follow up: Response: No adverse reaction; Marked relief of symptoms jl7 Intake: 07:00 IV: 1000ml; Total: 1000ml. jl7 07:58 IV: 1000ml; Total: 2000ml. jl7 Outcome: 06:41 Decision to Hospitalize by Provider. devan 15:30 Admitted to ICU accompanied by nurse, via wheelchair, room 13, with chart, Report jl7 called to BRICE Urena 15:30 Condition: stable 15:30 Discharge instructions given to patient, Instructed on the need for admit, Demonstrated understanding of instructions. 15:37 Patient left the ED. eb Signatures: Dispatcher [employer] EDMS Jose Mckeon MD MD cha Wise, Tara, RN RN tw2 Marisabel Carpenter RN RN jl7 Carrie Guerrero Elizabeth Evaristo Rossi, RN RN Radha Beltran RN RN ll2 Corrections: (The following items were deleted from the chart) 08:29 07:45 BP 143 / 74; Pulse 89bpm; Resp 17bpm; Pulse Ox 97% RA; tw2 tw2
[2020-08-25] MEDS ORDERED: THIAMINE 200 MG/2 ML INJ ONE (06:46)
[2020-08-25] MEDS ORDERED: MORPHINE 4 MG/ML SYR ONE ×2 (06:46→22:09)
--- NOTE | 2020-08-25 07:53 | RAD REPORT ---
EXAM DESCRIPTION: CT - Abdomen Pelvis Wo Contrast - 08/25/2020 6:25 am CLINICAL HISTORY: Abdominal pain. epigastric, oral for 20 min;Abd pain COMPARISON: Abdomen Pelvis Wo Contrast dated 01/28/2020 TECHNIQUE: CT imaging of the abdomen and pelvis was performed without contrast. Solid organ and vasc ular assessment is limited due to lack of IV contrast. All CT scans are performed using dose optimization technique as appropriate and may include automated exposure control or mA/KV adjustment according to patient size. FINDINGS: The lower lung salas are clear.Small hiatal hernia with probable mild gastroesophageal re flux. Cholecystectomy clips. The liver, spleen, adrenal glands and left kidney are within normal limits for a limited non-contrast examination.2 mm stone right kidney without hydronephrosis. Large laterally located right renal cyst 7 cm. No bowel obstruction, free air, free fluid or abscess. The appendix is normal. Moderate containing right inguinal hernia. Moderate lower lumbar degenerative spondylosis. IMPRESSION: Chronic pancreatitis. Small hiatal hernia with mild gastroesophageal reflux. 2 mm nonobstructing right renal calculus. A limited non-contrast examination was performed as detailed.
--- NOTE | 2020-08-25 08:24 | P.HP ---
Certification for Inpatient Patient admitted to: Inpatient With expected LOS: >2 Midnights Practitioner: I am a practitioner with admitting privileges, knowledge of patient current condition, hospital course, and medical plan of care. Services: Services provided to patient in accordance with Admission requirements found in Title 42 Section 412.3 of the Code of Federal Regulations Patient History Date of Service: 08/25/20 Primary Care Provider: Dr Horne Reason for admission: Pancreatitis History of Present Illness: 65-year-old male, PMH: CKD4, DM2 insulin dependent, HTN, GERD, ANAHY, HLD who presented to ED due to lower mid-left chest pain that began yesterday evening. Unable to describe the pain, 06/07 at its worst. Nothing in particular seems to worsen it or improve it. Today it moved to his upper abdomen and became worse. He reports a similar feeling of when he had pancreatitis several years ago. He reports 3 days of anorexia, the past day with nausea and vomiting (nonbloody, nonbilious). He denies diarrhea, last bowel movement was yesterday and normal. In the ED, workup revealed an elevated lipase, hyponatremia (128), CT abdomen/pe lvis consistent with pancreatitis. His EKG was without new ischemic changes, troponin was negative. He does report he started drinking again approximately 2-3 months ago-6 beers a day, most if not every day. He was given IV fluids, Zofran, and morphine which helped somewhat. He continues with pain, nausea, and vomiting during my exam. Allergies acetaminophen Allergy (Verified 08/19/18 21:59) Hives Home Medications: Pantoprazole Sodium 40 mg PO DAILY 08/20/18 Atorvastatin Calcium [Lipitor*] 20 mg PO BEDTIME 11/01/19 Insulin Lispro [Humalog Kwikpen U-200] 35 unit SQ TID* 06/28/20 Lisinopril [Zestril] 2.5 mg PO DAILY 06/28/20 Losartan Potassium [Cozaar*] 50 mg PO BID 06/28/20 Amoxicillin/Potassium Clav [Augmentin 250-62.5 mg/5 ml] 5 ml PO BID #1 bottle 06/29/20 Docusate [Colace Cap*] 100 mg PO DAILY #14 cap 06/29/20 Doxycycline Hyclate 100 mg PO BID #14 tablet 10/02/20 traMADol HCL [Ultram*] 50 mg PO TID PRN #10 tab 06/29/20 - Past Medical/Surgical History Diabetic: Yes -: DM 2, insulin dependent -: GERD -: ANAHY -: Chronic renal disease stage 4 -: GERD -: Hypertension -: Cholecystectomy -: Left elbow surgery Psychosocial/ Personal History: Patient is . He lives at home. - Family History Father -: Cancer Notes: colon cancer - Social History Smoking Status: Never smoker Alcohol use: Yes CD- Drugs: No Caffeine use: No Place of Residence: Home Review of Systems 10-point ROS is otherwise unremarkable Physical Examination - Physical Exam General: Alert, Oriented x3, Mild distress HEENT: Sclerae nonicteric Respiratory: Clear to auscultation bilaterally, Normal air movement Cardiovascular: No edema, Regular rate/rhythm Gastrointestinal: Soft and benign, Non-distended, Tenderness (Epigastric, moderate) Musculoskeletal: No tenderness Integumentary: Diabetic ulcer (Right great toe: Superficial healing ulcer, no surrounding erythema, no drainage/abscess) Neurological: Normal speech, Normal affect - Studies Laboratory Data (last 24 hrs) 08/25/20 04:45: PT 11.1, INR 0.94 08/25/20 04:45: WBC 6.9, Hgb 13.4 L, Hct 38.9 L, Plt Count 291 08/25/20 04:45: Sodium 128 L, Potassium 4.8, BUN 23 H, Creatinine 1.74 H, Glucose 183 H, Magnesium 2.4, Total Bilirubin 0.7, AST 18, ALT 18, Alkaline Phosphatase 177 H, Lipase 451 H Assessment and Plan - Advance Directives Does patient have a Living Will: No Does patient have a Durable POA for Healthcare: No Physician Review Additional Text: Pancreatitis, likely alcoholic Hyponatremia Chest pain CKD4 Diabetes mellitus type 2, insulin dependent. Hypertension GERD Obstructive sleep apnea Hyperlipidemia -admits, NPO, IV fluid hydration. Patient with anorexia x3 days, mild elevation of creatinine but fairly close to baseline -hyponatremia likely in the setting of hypovolemia -pain control with morphine for now, Zofran for nausea. -serial abdominal exams -patient with daily alcohol use, states he has gone through alcohol withdrawal many years ago, will monitor on alcohol withdrawal protocol -insulin sliding scale, will obtain home medications and restart as appropriate -chest pain is not typical of cardiac etiology, EKG without new ischemic changes, likely referred from pancreatitis, will trend troponins Code: Full VTE: Lovenox Dispo: anticipate dc home in ~48hrs pending improvement of pain, renal function, and hyponatremia Time Spent Managing Pts Care (In Minutes): 55
[2020-08-25] MEDS ORDERED: FLUMAZENIL 0.1 MG/ML (5 mL VIAL) IV PRN (08:37)
[2020-08-25] MEDS: FOLIC ACID 1 MG, MULTIVITAMINS INJ 10 ML, THIAMINE HCL 100 MG in NA CHLORIDE 0.9% 1,000 ML IV SCH (09:00)
[2020-08-25] MEDS ORDERED: LORazepam 2 MG/ML VIAL ONE ×4 (10:02→23:43)
--- NOTE | 2020-08-25 12:34 | RAD REPORT ---
EXAM DESCRIPTION: RAD - Chest Single View - 08/25/2020 5:15 am CLINICAL HISTORY: CHEST PAIN Chest pain. COMPARISON: Chest Pa And Lat (2 Views) dated 11/01/2019; Chest Single View dated 10/31/2019; Chest Singl e View dated 01/10/2019; Chest Single View dated 01/04/2019 FINDINGS: Portable technique limits examination quality. The lungs are grossly clear. The heart is normal in size. No displaced fractures. IMPRESSION: No acute intrathoracic process suspected.
[2020-08-25] MEDS ORDERED: MORPHINE 4 MG/ML SYR IV PRN (15:54)
[2020-08-25] MEDS: ENOXAPARIN 40 MG/0.4 ML SQ SCH (15:54)
[2020-08-25] MEDS ORDERED: ONDANSETRON 4 MG/2 ML VIAL IV PRN (15:54)
[2020-08-25] MEDS: INSULIN -REGULAR HUMAN 50 UNIT/0.5 ML ML SQ SCH ×2 (16:30→20:32)
[2020-08-25 16:53] VITALS: BMI 28.7
[2020-08-25 17:03] LABS: HDL Cholesterol 70 mg/dL (40-60); LDL Cholesterol, Calculated 87 (<130); Troponin I < 0.02 ng/mL (0.0-0.045)
[2020-08-25] MEDS: NA CHLORIDE 0.9% 1,000 ML IV SCH (17:41)
[2020-08-25] MEDS: LORazepam 2 MG/ML VIAL IV SCH ×3 (17:42→23:58)
[2020-08-25 19:25] LABS: Urine Appearance CLEAR; Urine Bilirubin NEGATIVE (NEG); Urine Blood NEGATIVE (NEG); Urine Color YELLOW; Urine Glucose 3+ (NEG); Urine Protein NEGATIVE (NEG); Urine Urobilinogen 0.2 mg/dL (0.2-1.0); Urine pH 5.5 (5.0-7.0)
[2020-08-25 19:26] LABS: Urine Microscopic Reflex NO UMIC
[2020-08-26] MEDS: NA CHLORIDE 0.9% 1,000 ML IV SCH ×2 (03:43→14:00)
[2020-08-26] MEDS ORDERED: NA CHLORIDE 0.9% 1,000 ML ONE (03:56)
[2020-08-26 04:20] LABS: Absolute Lymphocytes (CBC) 0.9 K/uL (0.7-4.9); Basophils % 0.4 % (0-1.3); Hematocrit 32.6 % (39.6-49.0); RBC Red Blood Cell Count 3.39 M/uL (4.33-5.43)
[2020-08-26] MEDS: LORazepam 2 MG/ML VIAL IV SCH (04:24)
[2020-08-26] MEDS ORDERED: LORazepam 2 MG/ML VIAL ONE ×4 (04:37→22:38)
[2020-08-26 04:52] LABS: Albumin 3.1 g/dL (3.4-5.0); Bilirubin Total 2.5 mg/dL (0.2-1.0); Magnesium 2.3 mg/dL (1.8-2.4); Phosphorus 2.7 mg/dL (2.5-4.9); Potassium 4.6 mmol/L (3.5-5.1); Protein, Total 6.3 g/dL (6.4-8.2)
[2020-08-26] MEDS: INSULIN -REGULAR HUMAN 50 UNIT/0.5 ML ML SQ SCH ×4 (07:30→19:31)
[2020-08-26] MEDS: ENOXAPARIN 40 MG/0.4 ML SQ SCH (08:13)
[2020-08-26] MEDS ORDERED: ENOXAPARIN 40 MG/0.4 ML SQ ONE (08:22)
[2020-08-26] MEDS ORDERED: ONDANSETRON 4 MG/2 ML VIAL ONE (08:22)
[2020-08-26] MEDS: FOLIC ACID 1 MG, MULTIVITAMINS INJ 10 ML, THIAMINE HCL 100 MG in NA CHLORIDE 0.9% 1,000 ML IV SCH (09:20)
[2020-08-26] MEDS: LORazepam 2 MG/ML VIAL IV PRN ×3 (11:28→22:25)
[2020-08-26 13:07] LABS: Albumin 3.4 g/dL (3.4-5.0); Bilirubin Total 1.5 mg/dL (0.2-1.0); Potassium 4.5 mmol/L (3.5-5.1)
--- NOTE | 2020-08-26 13:31 | RAD REPORT ---
EXAM DESCRIPTION: US - Liver Only - 08/26/2020 12:16 pm CLINICAL HISTORY: elevated Tbili / LFTs, pancreatitis COMPARISON: Abdomen Pelvis Wo Contrast dated 08/25/2020 TECHNIQUE: Sonographic evaluation of the right upper quadrant was performed as a dedicated liver ult rasound study. FINDINGS: Liver size is normal range. No focal liver parenchymal lesion identified. Doppler evaluati on shows normal velocity, flow direction and waveform pattern of the vein. No capsule nodularity. The re is a diffuse increased and coarsened echogenicity throughout the hepatic parenchyma. No splenomegaly or focal splenic process. Pancreas is obscured and not visualized on this study. IMPRESSION: Diffuse increased hepatic parenchymal echogenicity. This is nonspecific. Fatty infiltrat ion, diffuse hepatic parenchymal disease or a combination can give this presentation. No portal vein abnormality. No focal liver parenchymal lesion.
--- NOTE | 2020-08-26 14:46 | P.PN ---
Subjective Date of Service: 08/26/20 Primary Care Provider: Dr Horne Chief Complaint: Pancreatitis Subjective: Other (Patient reports feeling better, no longer having any abdominal pain, reports he is thirsty/hungry now With some confusion overnight and this morning. He thinks he is in a different hospital, overnight he thought he was in the hospital because he drove drunk. he reports some anxiety) Review of Systems 10-point ROS is otherwise unremarkable Physical Examination - Vital Signs Temperature: 98.2 F Blood Pressure: 151/65 Pulse: 72 Respirations: 17 Pulse Ox (%): 99 - Physical Exam General: Alert, In no apparent distress, Oriented x2 HEENT: Scleral icterus (very mild) Respiratory: Clear to auscultation bilaterally, Normal air movement Cardiovascular: No edema, Regular rate/rhythm Gastrointestinal: Soft and benign, Non-distended, No tenderness Musculoskeletal: No tenderness Integumentary: No rashes Neurological: Normal speech, Normal affect, Other (bilateral mild asterixis) Assessment & Plan Physician Review Additional Text: Pancreatitis, likely alcoholic Hyponatremia Chest pain CKD4 Diabetes mellitus type 2, insulin dependent. Hypertension GERD Obstructive sleep apnea Hyperlipidemia -advance diet to full liquids, continue IVF until tolerating diet -hyponatremia likely in the setting of hypovolemia, improving -pain control with morphine for now, Zofran for nausea. -last alcohol drink was ~36hrs ago, pt reports h/o "mild" alcohol withdrawal symptoms with anxiety/tremors, but has been hospitalized for it, no seizures -was started on scheduled prophylactic ativan overnight due to mild agitation/restlessness, pt somewhat drowsy this morning. will discontinue schedule, continue PRN for now -patient states he wishes to quit drinking alcohol and won't go back to drinking -LFTs and Tbili increased this morning, will obtain stat liver U/S - he is s/p cholecystectomy, repeat LFTs this afternoon -continue banana bag daily -chest pain resolved, trop negative Code: Full VTE: Lovenox Dispo: anticipate dc home in ~24-48hrs pending tolerating diet and alcohol withdrawal Time Spent Managing Pts Care (In Minutes): 35
[2020-08-26] MEDS: ATORVASTATIN 20 MG TAB PO SCH (20:33)
[2020-08-26] MEDS ORDERED: ATORVASTATIN 20 MG TAB ONE (20:45)
[2020-08-27] MEDS: LORazepam 2 MG/ML VIAL IV PRN ×4 (00:13→21:05)
[2020-08-27] MEDS ORDERED: LORazepam 2 MG/ML VIAL ONE ×3 (00:17→21:02)
[2020-08-27 05:35] LABS: Potassium 4.3 mmol/L (3.5-5.1)
[2020-08-27 05:36] LABS: Bilirubin Total 0.7 mg/dL (0.2-1.0); Magnesium 2.2 mg/dL (1.8-2.4); Phosphorus 2.4 mg/dL (2.5-4.9); Protein, Total 6.2 g/dL (6.4-8.2)
[2020-08-27] MEDS: PANTOPRAZOLE 40MG TABLET PO SCH (05:50)
[2020-08-27 05:55] LABS: Absolute Lymphocytes (CBC) 0.8 K/uL (0.7-4.9); Basophils % 0.3 % (0-1.3); Hematocrit 32.4 % (39.6-49.0); Lymphocytes % 18.6 % (15.3-44.8); MPV 9.7 fL (7.6-11.3); RBC Red Blood Cell Count 3.34 M/uL (4.33-5.43)
[2020-08-27] MEDS ORDERED: PANTOPRAZOLE 40MG TABLET PO ONE (06:03)
[2020-08-27] MEDS: INSULIN -REGULAR HUMAN 50 UNIT/0.5 ML ML SQ SCH ×4 (07:27→21:00)
[2020-08-27] MEDS: lisinopriL 5 MG TAB PO SCH (08:46)
[2020-08-27] MEDS: FERROUS SULFATE 325 MG TAB PO SCH (08:46)
[2020-08-27] MEDS: ENOXAPARIN 40 MG/0.4 ML SQ SCH (08:46)
[2020-08-27] MEDS: FOLIC ACID 1 MG, MULTIVITAMINS INJ 10 ML, THIAMINE HCL 100 MG in NA CHLORIDE 0.9% 1,000 ML IV SCH (08:47)
[2020-08-27] MEDS ORDERED: lisinopriL 5 MG TAB ONE (08:52)
[2020-08-27] MEDS ORDERED: ENOXAPARIN 40 MG/0.4 ML SQ ONE (08:52)
--- NOTE | 2020-08-27 09:16 | P.PN ---
Subjective Date of Service: 08/27/20 Primary Care Provider: Dr Horne Chief Complaint: Pancreatitis Subjective: Other (Continued with confusion/hallucinations last night, required Ativan x3. vitals stable) Review of Systems 10-point ROS is otherwise unremarkable Physical Examination - Vital Signs Temperature: 98.1 F Blood Pressure: 145/68 Pulse: 62 Respirations: 16 Pulse Ox (%): 97 - Physical Exam General: Alert, In no apparent distress, Oriented x2, Confused HEENT: Sclerae nonicteric Respiratory: Clear to auscultation bilaterally Cardiovascular: No edema, Regular rate/rhythm Gastrointestinal: Soft and benign, Non-distended, No tenderness Musculoskeletal: No tenderness Integumentary: No rashes Neurological: Other (+asterixis, pleasant, with some confusion of order of events) Assessment & Plan Physician Review Additional Text: Pancreatitis, likely alcoholic Hyponatremia Chest pain CKD4 Diabetes mellitus type 2, insulin dependent. Hypertension GERD Obstructive sleep apnea Hyperlipidemia -vitals stable, going through active alcohol withdrawal now; pt states he wishes to quit drinking and plans on not drinking again -hyponatremia resolved with IVF -abdominal pain resolved, never had chest pain during hospitalization, trop negative -no h/o DTs with withdrawal but has required hospitalization before -continue PRN ativan for now, alcohol withdrawal scores have been stable overnight, consider scheduled if worsesning -LFTs & Tbili improved / nearly resolved, Liver U/S with nonspecific findings fatty infiltrate vs ?alcoholic cirrhosis -continue banana bag daily Code: Full VTE: Lovenox Dispo: anticipate dc home in ~24-48hrs pending tolerating diet and resolution of alcohol withdrawal Time Spent Managing Pts Care (In Minutes): 35
[2020-08-27] MEDS: LOSARTAN POTASSIUM 50 MG TABLET PO SCH (09:44)
[2020-08-27] MEDS ORDERED: MORPHINE 2 MG/ML SYR IV PRN (13:56)
[2020-08-27] MEDS ORDERED: MORPHINE 2 MG/ML SYR ONE (14:20)
[2020-08-27] MEDS ORDERED: MAGNES/ALUMIN/SIMET 30ML UCUP PO PRN (15:07)
[2020-08-27] MEDS ORDERED: MAGNES/ALUMIN/SIMET 30ML UCUP ONE (15:43)
[2020-08-27] MEDS ORDERED: LORazepam 2 MG/ML VIAL IV SCH (18:00)
[2020-08-27] MEDS ORDERED: ATORVASTATIN 20 MG TAB ONE (21:02)
[2020-08-27] MEDS: ATORVASTATIN 20 MG TAB PO SCH (21:05)
[2020-08-28 05:29] LABS: Albumin 2.9 g/dL (3.4-5.0); Bilirubin Total 0.7 mg/dL (0.2-1.0); Potassium 4.8 mmol/L (3.5-5.1); Protein, Total 6.1 g/dL (6.4-8.2)
[2020-08-28] MEDS: PANTOPRAZOLE 40MG TABLET PO SCH (06:41)
[2020-08-28] MEDS ORDERED: PANTOPRAZOLE 40MG TABLET PO ONE (06:54)
[2020-08-28] MEDS: INSULIN -REGULAR HUMAN 50 UNIT/0.5 ML ML SQ SCH ×2 (07:30→11:30)
[2020-08-28 09:02] VITALS: O2SAT 99
[2020-08-28] MEDS: FOLIC ACID 1 MG, MULTIVITAMINS INJ 10 ML, THIAMINE HCL 100 MG in NA CHLORIDE 0.9% 1,000 ML IV SCH (09:51)
[2020-08-28] MEDS: ENOXAPARIN 40 MG/0.4 ML SQ SCH (09:51)
[2020-08-28] MEDS ORDERED: ENOXAPARIN 40 MG/0.4 ML SQ ONE (09:57)
[2020-08-28] MEDS: FERROUS SULFATE 325 MG TAB PO SCH (10:20)
[2020-08-28] MEDS: LOSARTAN POTASSIUM 50 MG TABLET PO SCH (10:21)
[2020-08-28] MEDS: lisinopriL 5 MG TAB PO SCH (10:22)
[2020-08-28] MEDS ORDERED: lisinopriL 5 MG TAB ONE (10:36)
--- NOTE | 2020-08-28 10:49 | P.DS ---
Admission Date: 08/25/20 Discharge Date: 08/28/20 Primary Care Provider: Dr Horne Disposition: ROUTINE DISCHARGE Discharge Condition: FAIR Reason for Admission: Pancreatitis Consultations: None Procedures: None - Problems (1) Alcohol withdrawal syndrome Current Visit: Yes Status: Acute (2) Acute pancreatitis Current Visit: Yes Status: Acute (3) Unsteady gait Current Visit: Yes Status: Acute (4) Hyponatremia Current Visit: Yes Status: Acute Brief History of Present Illness: 65-year-old gentleman with a history of hypertension and hyperlipidemia presented to the emergency department with a complaint of epigastric and abdominal pain. Workup in the emergency department demonstrated elevated lipase. CT abdomen and pelvis showed findings consistent with acute pancreatitis. Patient reports history of daily alcohol use. He was admitted for further management of acute pancreatitis. Hospital Course: Patient admitted to the medical floor and treated with supportive measures including IV hydration, antiemetics and IV opiates p.r.n. for pain. He developed alcohol withdrawal symptoms which was managed with IV Ativan. Patient clinical condition improved with treatment. Lipase level normalized and alcohol withdrawal symptoms later resolved. Hyponatremia resolved with IV fluid. Patient noted to have unsteady gait. He was evaluated by PT who recommended ambulation with a cane. Patient states he has a cane at home and will use it. Patient has clinically improved and deemed stable for discharge. He is prescribed thiamine. Vital Signs/Physical Exam: Temp Pulse Resp BP Pulse Ox 98.4 F 71 16 146/60 H 100 08/28/20 08:00 08/28/20 10:22 08/28/20 10:00 08/28/20 10:22 08/28/20 10:00 General: Alert, In no apparent distress HEENT: Mucous membr. moist/pink Neck: Supple Respiratory: Clear to auscultation bilaterally, Normal air movement Cardiovascular: No edema, Regular rate/rhythm, Normal S1 S2 Gastrointestinal: Normal bowel sounds, Soft and benign, No tenderness Musculoskeletal: No swelling, No tenderness Integumentary: No rashes, No erythema Neurological: Other (Nonfocal, No tremors.) Laboratory Data at Discharge: WBC 4.5 K/uL (4.3-10.9) 08/27/20 04:52 Hgb 11.0 g/dL (13.6-17.9) L 08/27/20 04:52 Hct 32.4 % (39.6-49.0) L 08/27/20 04:52 Plt Count 171 K/uL (152-406) 08/27/20 04:52 PT 11.1 SECONDS (9.5-12.5) 08/25/20 04:45 INR 0.94 08/25/20 04:45 Sodium 140 mmol/L (136-145) 08/28/20 04:56 Potassium 4.8 mmol/L (3.5-5.1) 08/28/20 04:56 BUN 10 mg/dL (7-18) 08/28/20 04:56 Creatinine 1.35 mg/dL (0.55-1.3) H 08/28/20 04:56 Glucose 130 mg/dL (74-106) H 08/28/20 04:56 Phosphorus 2.4 mg/dL (2.5-4.9) L 08/27/20 04:52 Magnesium 2.2 mg/dL (1.8-2.4) 08/27/20 04:52 Total Bilirubin 0.7 mg/dL (0.2-1.0) 08/28/20 04:56 AST 31 U/L (15-37) 08/28/20 04:56 ALT 54 U/L (12-78) 08/28/20 04:56 Alkaline Phosphatase 266 U/L (45-117) H 08/28/20 04:56 Troponin I 0.02 ng/mL (0.0-0.045) 08/25/20 23:57 Triglycerides 117 mg/dL (<150) 08/25/20 16:32 Cholesterol 180 mg/dL (<200) 08/25/20 16:32 HDL Cholesterol 70 mg/dL (40-60) H 08/25/20 16:32 Cholesterol/HDL Ratio 2.57 08/25/20 16:32 Lipase 113 U/L (73-393) 08/27/20 04:52 Home Medications: Pantoprazole Sodium 40 mg PO DAILY 08/20/18 Atorvastatin Calcium [Lipitor*] 20 mg PO BEDTIME 11/01/19 Insulin Lispro [Humalog Kwikpen U-200] 35 unit SQ TID* 06/28/20 Lisinopril [Zestril] 2.5 mg PO DAILY 06/28/20 Cholecalciferol (Vitamin D3) [Vitamin D3] 50 mcg PO DAILY 08/25/20 Iron 65 mg PO DAILY 08/25/20 Losartan Potassium [Cozaar] 50 mg PO DAILY 08/25/20 Multivitamin/Iron/Folic Acid [Centrum Adults Tablet] 1 each PO DAILY 08/25/20 Potassium Chloride [Klor-Con] 20 meq PO DAILY 08/25/20 Zolpidem Tartrate [Ambien*] 10 mg PO BEDTIME PRN 08/25/20 Thiamine HCl 100 mg PO DAILY #30 tablet 08/28/20 New Medications: Thiamine HCl 100 mg PO DAILY #30 tablet Diet: ADA Activity: Fall precautions Followup: Senthil Horne MD [Primary Care Provider] - 1 Week Time spent managing pt's care (in minutes): 38
[2020-08-28 12:25] VITALS: TEMP 98.6
[2020-08-28 13:05] VITALS: BP 167/62
== END 2020-08-28 14:25 | disposition home or self-care (01) | DRG 439 ==
LOC: ER 04:28 → ERHOLD 08:17
PROVIDERS: ADMIT Hospitalist; ATTEND Internal Medicine
DX: K85.20 Alcohol induced acute pancreatitis without necrosis or infection (principal); N18.4 Chronic kidney disease, stage 4 (severe); E87.1 Hypo-osmolality and hyponatremia; R44.3 Hallucinations, unspecified; F10.939 Alcohol use, unspecified with withdrawal, unspecified; I12.9 Hypertensive chronic kidney disease with stage 1 through stage 4 chronic kidney disease, or unspecified chronic kidney disease; E11.22 Type 2 diabetes mellitus with diabetic chronic kidney disease; F41.9 Anxiety disorder, unspecified; K21.9 Gastro-esophageal reflux disease without esophagitis; G47.33 Obstructive sleep apnea (adult) (pediatric); E78.5 Hyperlipidemia, unspecified; R26.81 Unsteadiness on feet; Z79.4 Long term (current) use of insulin; Z88.6 Allergy status to analgesic agent; Z79.899 Other long term (current) drug therapy; Z90.49 Acquired absence of other specified parts of digestive tract; Z20.828 Contact with and (suspected) exposure to other viral communicable diseases
CPT/HCPCS: 36415; 71045; 74176; 76705; 80048; 80053; 80061; 80076; 81003; 82140; 82947; 83690; 83735; 83880; 84100; 84484; 85025; 85610; 93005; 94760; 96372; 97112; 97116; 97161; 99285; J1650; J2270; J2405; J3411; J7030; U0002

== ENCOUNTER 2020-11-28 11:57 | Inpatient (IN) | payer OTHER ==
[2020-11-28 15:23] LABS: Absolute Lymphocytes (CBC) 1.8 K/uL (0.7-4.9); Basophils % 1.1 % (0-1.3); Hematocrit 37.3 % (39.6-49.0); Lymphocytes % 21.9 % (15.3-44.8); MPV 9.5 fL (7.6-11.3); RBC Red Blood Cell Count 3.95 M/uL (4.33-5.43)
--- NOTE | 2020-11-28 15:32 | RAD REPORT ---
EXAM DESCRIPTION: RAD - Foot Left 3 View - 11/28/2020 3:22 pm CLINICAL HISTORY: Foot pain FINDINGS: Cortical irregularity involves the base of second distal phalanx probably osteomyelitis. T here is also bony fragmentation. In addition there appears to be a dislocation involving the second d istal phalanx. Bones are osteoporotic
[2020-11-28 15:50] LABS: Bilirubin Total 0.5 mg/dL (0.2-1.0); C-Reactive Protein 20.9 mg/L (<3.00); Potassium 4.6 mmol/L (3.5-5.1)
--- NOTE | 2020-11-28 16:39 | ER ---
Nurse's Notes [facility] Name: Shreyas Mckeon Age: 65 yrs Sex: Male : 1955 Arrival Date: 11/28/2020 Time: 12:02 Bed 23 Private MD: Diagnosis: Osteomyelitis;Cellulitis of the Left 2nd Toe Presentation: 11/28 12:14 Chief complaint: Patient states: L foot 2nd digit wound infection for 1 month. Covid ll1 positive so his doctor wont see him. No fever. States the toe is black color, slight drainage on dressing. Coronavirus screen: Client denies travel out of the [place] in the last 14 days. Ebola Screen: Patient denies travel to an Ebola-affected area in the 21 days before illness onset. Initial Sepsis Screen: Does the patient meet any 2 criteria? No. Patient's initial sepsis screen is negative. Does the patient have a suspected source of infection? Yes: Skin breakdown/wound. Risk Assessment: Do you want to hurt yourself or someone else? Patient reports no desire to harm self or others. Onset of symptoms was October 30, 2020. 12:14 Method Of Arrival: Ambulatory ll1 12:14 Acuity: FRIDA 3 ll1 Historical: - Allergies: 12:17 No Known Allergies; ll1 - PMHx: 12:17 Diabetes - NIDDM; Hypertension; kidney disease; Left foot wound; ll1 - PSHx: 12:17 Cholecystectomy; ll1 - Immunization history:: Flu vaccine is up to date. - Social history:: Smoking status: Patient denies any tobacco usage or history of. Screenin:02 Abuse screen: Denies threats or abuse. Denies injuries from another. Nutritional hb screening: No deficits noted. Tuberculosis screening: No symptoms or risk factors identified. Fall Risk None identified. Assessment: 15:02 General: Appears in no apparent distress. Behavior is calm, cooperative. Pain: Denies hb pain. Neuro: Level of Consciousness is awake, alert, obeys commands, Oriented to person, place, time, situation. Cardiovascular: Capillary refill < 3 seconds Patient's skin is warm and dry. Respiratory: Respiratory effort is even, unlabored, Respiratory pattern is regular, symmetrical. GI: No signs and/or symptoms were reported involving the gastrointestinal system. : No signs and/or symptoms were reported regarding the genitourinary system. EENT: No signs and/or symptoms were reported regarding the EENT system. Derm: Skin is pink, warm \T\ dry. left second toe blackened, entire left foot peeling. Musculoskeletal: No signs and/or symptoms reported regarding the musculoskeletal system. 16:00 Reassessment: Patient appears in no apparent distress at this time. Patient and/or hb family updated on plan of care and expected duration. Pain level reassessed. Patient is alert, oriented x 3, equal unlabored respirations, skin warm/dry/pink. 17:00 Reassessment: Patient appears in no apparent distress at this time. Patient and/or hb family updated on plan of care and expected duration. Pain level reassessed. Patient is alert, oriented x 3, equal unlabored respirations, skin warm/dry/pink. 17:00 Reassessment: Patient appears in no apparent distress at this time. Patient and/or hb family updated on plan of care and expected duration. Pain level reassessed. Patient is alert, oriented x 3, equal unlabored respirations, skin warm/dry/pink. 18:00 Reassessment: Patient appears in no apparent distress at this time. Patient and/or hb family updated on plan of care and expected duration. Pain level reassessed. Patient is alert, oriented x 3, equal unlabored respirations, skin warm/dry/pink. 18:32 Reassessment: Report called to 4th floor, awaiting transport at this time. Vital Signs: 12:14 BP 149 / 81; Pulse 60; Resp 17; Temp 98.0; Pulse Ox 96% ; Weight 90.72 kg; Height 5 ft. ll1 9 in. (175.26 cm); Pain 5/10; 15:30 BP 142 / 80; Pulse 61; Resp 16; Pulse Ox 99% on R/A; hb 17:30 BP 140 / 78; Pulse 62; Resp 15; Pulse Ox 99% on R/A; hb 12:14 Body Mass Index 29.53 (90.72 kg, 175.26 cm) ll1 ED Course: 12:02 Patient arrived in ED. am2 12:17 Triage completed. ll1 12:17 Arm band placed on. ll1 14:49 Merlyn Baum, BRICE is Primary Nurse. hb 14:54 Man Amezquita PA is PHCP. [facility] 14:54 Soren Dale MD is Attending Physician. [facility] 15:02 Patient has correct armband on for positive identification. Bed in low position. Call light in reach. 15:12 Inserted saline lock: 20 gauge in right antecubital area, using aseptic technique. hb Blood collected. 16:14 Lactate Sent. sv 16:14 CRP Sent. sv 16:14 Procalcitonin Sent. sv 16:14 CMP Sent. sv 16:14 CBC with Diff Sent. sv 16:14 Foot Left 3 View XRAY Sent. sv 16:38 Jayme Arrington DO is Hospitalizing Provider. [facility] 18:32 No provider procedures requiring assistance completed. Patient admitted, IV remains in hb place. Administered Medications: 17:10 Drug: Cefepime 1 grams Route: IVPB; Rate: 200 ml/hr; Infused Over: 30 mins; Site: right hb antecubital; 17:11 Follow up: IV Status: Completed infusion; IV Intake: 10ml ; given slow push hb 17:30 Follow up: Response: No adverse reaction hb 17:22 Drug: vancoMYCIN 1 grams Route: IVPB; Infused Over: 2 hrs; Site: right antecubital; hb Intake: 17:11 IV: 10ml; Total: 10ml. hb Outcome: 16:39 Decision to Hospitalize by Provider. [facility] 18:32 Admitted to [facility] hb 18:32 Condition: stable 18:32 Instructed on the need for admit, Demonstrated understanding of instructions. 18:54 Patient left the ED. hb Signatures: Lianna Valdes RN RN Man Amezquita PA PA [facility] Merlyn Baum RN RN Carrie Guerrero am2 Ritesh Hernandez RN RN ll1
--- NOTE | 2020-11-28 16:40 | EDPHYS ---
Physician Documentation [facility] Name: Shreyas Mckeon Age: 65 yrs Sex: Male : 1955 Arrival Date: 11/28/2020 Time: 12:02 Bed 23 Private MD: ED Physician Soren Dale HPI: 11/28 15:05 This 65 yrs old Male presents to ER via Ambulatory with complaints of Wound jmm Infection, Covid+. 15:05 Onset: The symptoms/episode began/occurred gradually, 1 month(s) ago. Modifying jmm factors: The symptoms are alleviated by nothing, the symptoms are aggravated by nothing. This is a 65 year old male with a history of DM, HTN, CKD that presents to the ED with complaints of swelling to the left 2nd toe. Symptoms began after an injury on an exercise bike 1 month prior. Patient is also still testing positive for covid so unable to see podiatry outpatient. . Historical: - Allergies: 12:17 No Known Allergies; ll1 - PMHx: 12:17 Diabetes - NIDDM; Hypertension; kidney disease; Left foot wound; ll1 - PSHx: 12:17 Cholecystectomy; ll1 - Immunization history:: Flu vaccine is up to date. - Social history:: Smoking status: Patient denies any tobacco usage or history of. ROS: 15:05 Constitutional: Negative for fever, chills, and weight loss, Cardiovascular: Negative jmm for chest pain, palpitations, and edema, Respiratory: Negative for shortness of breath, cough, wheezing, and pleuritic chest pain. 15:05 MS/extremity: Positive for erythema, swelling. 15:05 All other systems are negative. Exam: 15:05 Constitutional: This is a well developed, well nourished patient who is awake, alert, jmm and in no acute distress. Head/Face: atraumatic. Eyes: EOMI, no conjunctival erythema appreciated ENT: Moist Mucus Membranes Neck: Trachea midline, Supple Chest/axilla: Normal chest wall appearance and motion. Cardiovascular: Regular rate and rhythm. No edema appreciated Respiratory: Normal respirations, no respiratory distress appreciated Abdomen/GI: Non distended, soft Back: Normal ROM 15:05 Musculoskeletal/extremity: dorsalis pulse is full to the left foot. 15:05 Skin: erythema noted to the left 2nd toe, escar noted to the tip. 15:05 Neuro: Orientation: is normal, Mentation: is normal, Memory: is normal. 15:05 Psych: Behavior/mood is pleasant, cooperative. Vital Signs: 12:14 BP 149 / 81; Pulse 60; Resp 17; Temp 98.0; Pulse Ox 96% ; Weight 90.72 kg; Height 5 ft. ll1 9 in. (175.26 cm); Pain 5/10; 15:30 BP 142 / 80; Pulse 61; Resp 16; Pulse Ox 99% on R/A; hb 17:30 BP 140 / 78; Pulse 62; Resp 15; Pulse Ox 99% on R/A; hb 12:14 Body Mass Index 29.53 (90.72 kg, 175.26 cm) ll1 MDM: 14:57 Patient medically screened. [facility] 16:37 Data reviewed: vital signs, nurses notes. Counseling: I had a detailed discussion with [facility] the patient and/or guardian regarding: the historical points, exam findings, and any diagnostic results supporting the discharge/admit diagnosis, lab results, radiology results, the need for further work-up and treatment in the hospital. ED course: I discussed the patient with Dr. Arrington whom accepted the patient for admission. . 11/28 15:04 Order name: CBC with Diff [facility] 11/28 15:04 Order name: CMP [facility] 11/28 15:04 Order name: Procalcitonin [facility] 11/28 15:04 Order name: CRP [facility] 11/28 15:05 Order name: Lactate [facility] 11/28 15:24 Order name: CBC with Automated Diff; Complete Time: 15:24 EDMS 11/28 15:04 Order name: Foot Left 3 View XRAY [facility] 11/28 15:32 Order name: RAD; Complete Time: 15:46 EDMS 11/28 15:51 Order name: Comprehensive Metabolic Panel; Complete Time: 15:57 EDMS 11/28 15:51 Order name: C-Reactive Protein; Complete Time: 15:57 EDMS 11/28 16:03 Order name: Procalcitonin; Complete Time: 16:04 EDMS 11/28 16:22 Order name: Lactate; Complete Time: 16:30 EDMS 11/28 15:04 Order name: Saline Lock; Complete Time: 15:16 jmm Administered Medications: 17:10 Drug: Cefepime 1 grams Route: IVPB; Rate: 200 ml/hr; Infused Over: 30 mins; Site: right hb antecubital; 17:11 Follow up: IV Status: Completed infusion; IV Intake: 10ml ; given slow push hb 17:30 Follow up: Response: No adverse reaction hb 17:22 Drug: vancoMYCIN 1 grams Route: IVPB; Infused Over: 2 hrs; Site: right antecubital; hb Disposition: 11/29 07:21 Co-signature as Attending Physician, Soren Dale MD I agree with the assessment and [facility] plan of care. Disposition: 11/28/20 16:39 Hospitalization ordered by Jayme Arrington for Observation. Preliminary diagnosis are Osteomyelitis, Cellulitis of the Left 2nd Toe. - Bed requested for Telemetry/MedSurg (observation). - Status is Observation. hb - Condition is Stable. - Problem is new. - Symptoms are unchanged. Signatures: Dispatcher [employer] Lianna Chang RN RN sv Rittger, Kevin, MD MD [facility] Man Amezquita PA PA [facility] Merlyn Baum RN RN Ritesh Hernandez RN RN ll1 Corrections: (The following items were deleted from the chart) 11/28 17:21 16:39 Hospitalization Ordered by Jayme Arrington DO for Observation. Preliminary sv diagnosis is Osteomyelitis; Cellulitis of the Left 2nd Toe. Bed requested for Telemetry/MedSurg (observation). Status is Observation. Condition is Stable. Problem is new. Symptoms are unchanged. [facility] 18:54 17:21 11/28/2020 16:39 Hospitalization Ordered by Jayme Arrington DO for Observation. hb Preliminary diagnosis is Osteomyelitis; Cellulitis of the Left 2nd Toe. Bed requested for Telemetry/MedSurg (observation). Status is Observation. Condition is Stable. Problem is new. Symptoms are unchanged. sv
--- NOTE | 2020-11-28 17:33 | P.HP ---
Certification for Inpatient Patient admitted to: Inpatient With expected LOS: >2 Midnights Patient will require the following post-hospital care: Other (May require outpatient IV antibiotic therapy) Practitioner: I am a practitioner with admitting privileges, knowledge of patient current condition, hospital course, and medical plan of care. Services: Services provided to patient in accordance with Admission requirements found in Title 42 Section 412.3 of the Code of Federal Regulations Patient History Date of Service: 11/28/20 Primary Care Provider: Dr. Horne; Podiatry-Dr. Kiser Reason for admission: Left 2nd toe infection History of Present Illness: 65-year-old male with history of diabetes, hypertension, chronic renal disease, GERD, obstructive sleep apnea, diabetic neuropathy and hyperlipidemia. 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 Patient was recently discharge from alcoholic rehab in [place] on November 01. He has remained sober since that time. Prior to discharge patient had bumped his left 2nd toe while doing physical therapy on a bike. Since that time he has reported some changes to the skin of the 2nd toe. Inflammation noted. There appeared to be a small blister to the sole of his foot near the 2nd toe. He has neuropathy and is not able to feel pain. Due to the changes of erythema, swelling to the left 2nd toe a came to the ER for further evaluation. In the ER patient was evaluated. White count within normal range. CRP slightly elevated. Pro calcitonin unremarkable. X-ray of the foot appears to have some indication of osteomyelitis. Sodium 135, potassium within normal range. Glucose elevated greater than 200. Creatinine 1.7 with a GFR 36. Patient admitted for further evaluation and treatment. Allergies acetaminophen Allergy (Verified 08/19/18 21:59) Hives Home medications list reviewed: Yes Home Medications: Pantoprazole Sodium 40 mg PO DAILY 08/20/18 Atorvastatin Calcium [Lipitor*] 20 mg PO BEDTIME 11/01/19 Insulin Lispro [Humalog Kwikpen U-200] 35 unit SQ TID* 06/28/20 Lisinopril [Zestril] 2.5 mg PO DAILY 06/28/20 Cholecalciferol (Vitamin D3) [Vitamin D3] 50 mcg PO DAILY 08/25/20 Iron 65 mg PO DAILY 08/25/20 Losartan Potassium [Cozaar] 50 mg PO DAILY 08/25/20 Multivitamin/Iron/Folic Acid [Centrum Adults Tablet] 1 each PO DAILY 08/25/20 Potassium Chloride [Klor-Con] 20 meq PO DAILY 08/25/20 Zolpidem Tartrate [Ambien*] 10 mg PO BEDTIME PRN 08/25/20 Thiamine HCl 100 mg PO DAILY #30 tablet 08/28/20 - Past Medical/Surgical History Diabetic: Yes -: DM 2, insulin dependent -: GERD -: ANAHY -: Chronic renal disease stage 4 -: chronic pancreatitis -: Hypertension -: Prior alcohol use -: Cholecystectomy -: Left elbow surgery Psychosocial/ Personal History: Patient is . He lives at home. - Family History Father -: Cancer Notes: colon cancer - Social History Smoking Status: Never smoker Alcohol use: No CD- Drugs: No Caffeine use: Yes Place of Residence: Home Review of Systems General: As per HPI Eyes: Unremarkable ENT: Unremarkable Respiratory: Unremarkable Cardiovascular: Unremarkable Gastrointestinal: Unremarkable Genitourinary: Unremarkable Musculoskeletal: As per HPI Integumentary: As per HPI Neurological: Unremarkable Lymphatics: Unremarkable Physical Examination - Physical Exam General: Alert, In no apparent distress, Oriented x3, Cooperative HEENT: Atraumatic, Normocephalic, Mucous membr. moist/pink Neck: Supple Respiratory: Clear to auscultation bilaterally, Normal air movement Cardiovascular: Normal pulses, Regular rate/rhythm Gastrointestinal: Normal bowel sounds, Soft and benign, Non-distended, No tenderness, No masses, No rebound, No guarding Musculoskeletal: Other (Erythema, swelling noted to the 2nd left toe. There is some necrotic area of tissue to the tip of the toe. old ruptured blister to the forefoot region near the 2nd toe.) Integumentary: Other (As above) Neurological: Normal speech, Normal strength at 5/5 x4 extr, Normal tone, Normal affect Assessment and Plan - Plan Impression: Left 2nd toe osteomyelitis Acute on chronic renal disease stage III Diabetes mellitus type 2 with hyperglycemia insulin-dependent Hypertension Hyperlipidemia Prior alcohol use now sober Recent COVID 19 positive Plan: Left 2nd toe osteomyelitis: Patient we admitted for further evaluation and treatment. Case discussed with surgery who will evaluate patient tomorrow for likely intervention. This may include debridement verses partial amputation. Will start IV vancomycin and cefepime. Will obtain arterial Doppler to evaluate for PVD. Will also obtain MRI to further evaluate. Await further recommendations from surgery. Will continue to monitor closely. If no amputation is done then patient may require long-term IV antibiotic therapy. This was also discussed with the patient. He will confer with surgery to determine the best course of action. Will reassess the patient tomorrow. Acute on chronic renal disease stage III: Will start IV fluids. Will monitor closely. Pharmacy to monitor and adjust medication. Diabetes mellitus type 2 with hyperglycemia insulin-dependent: Will start basal insulin. Accu-Cheks in place. Will check A1c. Hypertension: Hold lisinopril. Continue losartan. Will monitor and adjust appropriately. Hyperlipidemia: Restart Lipitor. Prior alcohol use now sober: Patient recently at alcohol rehab. Patient has been sober. Continue vitamin supplementation. Recent COVID 19 positive: Will retest patient. Discharge Plan: Home Plan to discharge in: Greater than 2 days - Advance Directives Does patient have a Living Will: No Does patient have a Durable POA for Healthcare: No - Code Status/Comfort Care Code Status Assessed: Yes (Patient full code) Time Spent Managing Pts Care (In Minutes): 55
[2020-11-28] MEDS ORDERED: VANCOMYCIN 1 GM/VIAL ONE (17:41)
[2020-11-28] MEDS ORDERED: NA CHLORIDE 0.9% 250 ML ONE (17:41)
[2020-11-28] MEDS ORDERED: CEFEPIME/SWI 1gm 10 ML ONE (17:42)
[2020-11-28] MEDS ORDERED: ONDANSETRON 4 MG/2 ML VIAL IV PRN (18:45)
[2020-11-28] MEDS: NA CHLORIDE 0.9% 1,000 ML IV SCH ×2 (18:45→22:30)
[2020-11-28] MEDS ORDERED: D50W 25 GM/50 ML SYRINGE IV PRN (18:45)
[2020-11-28] MEDS ORDERED: GLUCAGON 1 MG/VIAL IM PRN (18:45)
[2020-11-28] MEDS ORDERED: VANCOMYCIN 500 MG in NA CHLORIDE 0.9% 100 ML IVPB ONE (19:30)
[2020-11-28] MEDS ORDERED: CEFEPIME/SWI 1gm 10 ML IV SCH (21:00)
[2020-11-28] MEDS ORDERED: CEFEPIME 1 GM/VIAL IV SCH (21:00)
[2020-11-28] MEDS: INSULIN -REGULAR HUMAN 50 UNIT/0.5 ML ML SQ SCH (21:00)
[2020-11-28] MEDS: ATORVASTATIN 20 MG TAB PO SCH (22:30)
[2020-11-28] MEDS: LOSARTAN POTASSIUM 50 MG TABLET PO SCH (22:30)
[2020-11-28] MEDS: INSULIN GLARGINE 100 UNITS/ML SQ SCH (22:30)
[2020-11-28] MEDS ORDERED: VANCOMYCIN 500 MG/VIAL ONE (22:42)
[2020-11-28] MEDS ORDERED: NA CHLORIDE 0.9% 100 ML ONE (22:43)
[2020-11-28 23:00] LABS: Urine Appearance CLEAR; Urine Bilirubin NEGATIVE (NEG); Urine Blood NEGATIVE (NEG); Urine Color YELLOW; Urine Glucose NEGATIVE (NEG); Urine Protein NEGATIVE (NEG); Urine Specific Gravity 1.025 (1.005-1.030); Urine Urobilinogen 0.2 mg/dL (0.2-1.0)
[2020-11-28 23:01] LABS: Urine Microscopic Reflex ORDER UMIC
[2020-11-29 00:42] LABS: Urine Bacteria <20 /HPF (NONE SEEN); Urine RBC <5 /HPF (NONE SEEN); Urine Urothelial Cells <5 /HPF (NONE SEEN)
[2020-11-29 03:58] LABS: Absolute Lymphocytes (CBC) 1.4 K/uL (0.7-4.9); Basophils % 0.9 % (0-1.3); Hematocrit 31.9 % (39.6-49.0); Lymphocytes % 19.8 % (15.3-44.8); RBC Red Blood Cell Count 3.41 M/uL (4.33-5.43)
[2020-11-29 04:22] LABS: Magnesium 1.8 mg/dL (1.8-2.4); Potassium 4.6 mmol/L (3.5-5.1); Thyroid Stimulating Hormone 1.45 uIU/mL (0.360-3.740)
[2020-11-29] MEDS ORDERED: MAGNESIUM SULFATE 1 gm IVPB 1 GM/100 ML BAG IV ONE (04:56)
[2020-11-29] MEDS: PANTOPRAZOLE 40MG TABLET PO SCH (06:23)
[2020-11-29] MEDS ORDERED: CEFEPIME/SWI 1gm 10 ML IV SCH (07:00)
[2020-11-29] MEDS: INSULIN -REGULAR HUMAN 50 UNIT/0.5 ML ML SQ SCH ×4 (07:30→21:00)
[2020-11-29] MEDS: NA CHLORIDE 0.9% 1,000 ML IV SCH ×2 (08:05→12:24)
[2020-11-29] MEDS: THIAMINE HCL 100 MG TABLET PO SCH (08:30)
[2020-11-29] MEDS: LOSARTAN POTASSIUM 50 MG TABLET PO SCH ×2 (08:30→21:11)
[2020-11-29] MEDS: VITAMIN D 1000 UNIT TAB PO SCH (08:30)
[2020-11-29] MEDS: MULTIVIT W/ MINERAL TAB PO SCH ×2 (08:30→12:25)
[2020-11-29] MEDS: ENOXAPARIN 40 MG/0.4 ML SQ SCH ×2 (08:30→12:25)
--- NOTE | 2020-11-29 09:35 | P.PN ---
Subjective Date of Service: 11/29/20 Primary Care Provider: Dr. Horne; Podiatry-Dr. Kiser Chief Complaint: Left 2nd toe infection Subjective: No new changes, Improving Physical Examination - Vital Signs Temperature: 97.6 F Blood Pressure: 147/98 Pulse: 52 Respirations: 18 Pulse Ox (%): 98 - Studies Laboratory Data (last 24 hrs) 11/28/20 15:13: Sodium 135 L, Potassium 4.6, BUN 14, Creatinine 1.78 H, Glucose 235 H, Total Bilirubin 0.5, AST 10 L, ALT 12, Alkaline Phosphatase 146 H 11/28/20 15:13: WBC 8.00, Hgb 12.6 L, Hct 37.3 L, Plt Count 291 Assessment & Plan Discharge Plan: Home Plan to discharge in: 72 Hours Physician Review Additional Text: Physical exam: Patient alert, cooperative. No significant distress noted. Heart: Regular rate rhythm Lungs: Clear to auscultation Abdomen: Soft nontender nondistended Extremities: Good range of motion to the upper lower extremities. No significant change in erythema, swelling to the 2nd left toe. Maybe minimal improvement noted. Patient able to ambulate. Impression: Left 2nd toe osteomyelitis Acute on chronic renal disease stage III Diabetes mellitus type 2 with hyperglycemia insulin-dependent Hypertension Hyperlipidemia Prior alcohol use now sober Recent COVID 19 positive Plan: Left 2nd toe osteomyelitis: Continue IV antibiotic therapy-vancomycin and cefepime. MRI and arterial Doppler ordered to further evaluate. Await recommendations from surgery. Patient may require debridement verses partial amputation. If no amputation is done then patient may require long-term IV antibiotic therapy. Await further evaluation and recommendations from surgery. Anticipate improvement over the next 48-72 hr. Acute on chronic renal disease stage III: Improvement noted. Continue IV fluids. Will monitor closely. Pharmacy to monitor and adjust medication. Diabetes mellitus type 2 with hyperglycemia insulin-dependent: Continue basal insulin. Accu-Cheks in place. Hemoglobin A1c 8.6.. Hypertension: Hold lisinopril. Continue losartan. Will add Norvasc for better blood pressure control. Will monitor and adjust appropriately. Hyperlipidemia: Continue Lipitor. Prior alcohol use now sober: Patient recently at alcohol rehab. Patient has been sober. Continue vitamin supplementation. Recent COVID 19 positive: Patient remains positive. Patient asymptomatic. Time Spent Managing Pts Care (In Minutes): 55
--- NOTE | 2020-11-29 11:19 | RAD REPORT ---
EXAM DESCRIPTION: MRI - Foot Left Wo Cont - 11/29/2020 10:30 am CLINICAL HISTORY: evalaute for osteomyelitis, foot pain, plantar wound near second MTP joint COMPARISON: Foot Left Wo Cont dated 08/23/2018; Foot Left 3 View dated 11/28/2020 TECHNIQUE: Multiplanar imaging of the left foot performed using T1 weighted, T2 fat saturation, T1 f at saturation and T2 stir sequencing. FINDINGS: The second metatarsal and base of the second proximal phalanx show normal MR signal charac teristics. There is hypointense T1 and hyperintense T2 signal in the head of the second proximal phal anx. Extensive hypointense T1 and hyperintense T2 signal present throughout the entirety of the secon d middle phalanx. Joint capsule of the second DIP joint has been disrupted with distal phalanx displa tiffanie several mm from the middle phalanx. Cortical margins are poorly defined in the second distal phal anx. Extensive edematous/ inflammatory signal surrounds the second toe from the mid proximal phalanx level to the tip. No drainable fluid collection. Wound in the ball of the foot near the second MTP luz int shows no abscess or drainable fluid collection. The first toe and the third- fifth toe show no suspicious findings. No metatarsal or tarsal acute sig nal abnormality. Degenerative changes are present. IMPRESSION: Osteomyelitis with bone destruction in the second distal phalanx. Osteomyelitis without gross bone destruction present in the second middle phalanx and head of the second proximal phalanx. No osteomyelitis changes involving the metatarsal bones. Extensive inflammatory change in the soft tissues but no abscess or drainable fluid collection.
--- NOTE | 2020-11-29 11:59 | RAD REPORT ---
EXAM DESCRIPTION: US - Lower Extremity Arterial Bilat - 11/29/2020 11:17 am CLINICAL HISTORY: evaluate for PVD, left foot wound an osteomyelitis COMPARISON: July 2018 TECHNIQUE: Left brachial artery pressure measurement was obtained. Waveforms were obtained along the length of each lower extremity. Ankle pressure measurements were obtained with index values calculat ed. Visual inspection of the lower extremity arterial tree performed. FINDINGS: TAYLOR values are 1.23 on the right and 1.14 on the left. Toe index values are 1.40 on the ri ght and 1.07 on the left. Triphasic waveforms were identified in the bilateral common femoral and superficial femoral arteries as well as the left popliteal artery. Right popliteal artery with biphasic. Biphasic waveform pattern seen in the right posterior tibial and dorsalis pedis arteries with the left ankle arteries monophas ic. No occlusion or focal flow restricting lesion. Atherosclerotic calcifications are seen in the art erial tree. IMPRESSION: Bilateral TAYLOR values and toe index values measure greater than 1.00 supporting no severe degree of peripheral vascular disease. The patient does have a monophasic waveform pattern in the dorsalis pedis and posterior tibial arteri es of the left ankle indicating greater disease than the right lower extremity. No occlusion or focal flow restricting lesion identified.
[2020-11-29] MEDS: VANCOMYCIN 1.5 GM in NA CHLORIDE 0.9% 500 ML IVPB SCH (17:31)
[2020-11-29] MEDS ORDERED: VANCOMYCIN 1.5 GM in NA CHLORIDE 0.9% 500 ML IVPB SCH (19:00)
[2020-11-29] MEDS: ATORVASTATIN 20 MG TAB PO SCH (21:11)
[2020-11-29] MEDS: INSULIN GLARGINE 100 UNITS/ML SQ SCH (21:12)
[2020-11-29] MEDS: CEFEPIME/SWI 1gm 10 ML IV SCH (21:16)
[2020-11-30] MEDS: ZOLPIDEM TARTRATE 10 MG TABLET PO PRN ×2 (00:12→21:46)
[2020-11-30 04:04] LABS: Absolute Lymphocytes (CBC) 1.5 K/uL (0.7-4.9); Basophils % 1.1 % (0-1.3); Hematocrit 31.9 % (39.6-49.0); Lymphocytes % 23.8 % (15.3-44.8); MPV 9.8 fL (7.6-11.3); RBC Red Blood Cell Count 3.37 M/uL (4.33-5.43)
[2020-11-30 04:17] LABS: Potassium 4.4 mmol/L (3.5-5.1)
[2020-11-30] MEDS: NA CHLORIDE 0.9% 1,000 ML IV SCH (05:46)
[2020-11-30] MEDS: PANTOPRAZOLE 40MG TABLET PO SCH (06:14)
[2020-11-30] MEDS: INSULIN -REGULAR HUMAN 50 UNIT/0.5 ML ML SQ SCH ×4 (07:30→21:45)
[2020-11-30] MEDS: ENOXAPARIN 40 MG/0.4 ML SQ SCH (09:00)
[2020-11-30] MEDS: ASPIRIN EC 81 MG TAB PO SCH (09:00)
[2020-11-30] MEDS: MULTIVIT W/ MINERAL TAB PO SCH (09:00)
[2020-11-30] MEDS: THIAMINE HCL 100 MG TABLET PO SCH (09:01)
[2020-11-30] MEDS: LOSARTAN POTASSIUM 50 MG TABLET PO SCH ×2 (09:01→21:43)
[2020-11-30] MEDS: CEFEPIME/SWI 1gm 10 ML IV SCH ×2 (09:01→21:44)
[2020-11-30] MEDS: VITAMIN D 1000 UNIT TAB PO SCH (09:01)
[2020-11-30] MEDS: AMLODIPINE 5 MG TAB PO SCH (09:02)
[2020-11-30] MEDS ORDERED: FENTANYL CITR 100 MCG/2 ML ONE (10:46)
[2020-11-30] MEDS ORDERED: propofoL 200 MG/20 ML VIAL IV ONE (10:50)
[2020-11-30] MEDS ORDERED: LIDOCAINE 1% MPF 5 ML VIAL ONE (10:55)
[2020-11-30] MEDS ORDERED: NA CHLORIDE 0.9% 1,000 ML ONE (10:56)
[2020-11-30] MEDS ORDERED: KETOROLAC 30 MG/ML INJ ONE (11:15)
--- NOTE | 2020-11-30 11:15 | P.OP ---
Liability Claims Representative: NONE,NONE Preoperative diagnosis: Left 2nd toe osteomyelitis and gangrene Postoperative diagnosis: Same Primary procedure: Left 2nd toe amputation Anesthesia: General Estimated blood loss: min Specimen: C&S and second toe Findings: as above Complications: None Transferred to: Recovery Room Condition: Good
--- NOTE | 2020-11-30 11:20 | PREOPCON ---
Date of Consultation: 11/28/2020 Reason: Infected wound, left 2nd toe with gangrene and osteo. 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 He had gangrene on the tip. He had redness surrounding it. He had been [facility], discharged about a month ago, and he was exercising and had developed a wound and progre ssively became worse on the 2nd toe and the plantar aspect of the foot as well as while riding a [employer] bike. Note, he has and minimal feeling because of his diabetic neuropathy. No fever or chills. No purulent discharge. He is COVID positive however. He had a plain x-ray done which lidia cated osteomyelitis on the tips. Therefore, he was admitted. IV antibiotics were started and I was consulted. He is awake, alert. No sore throat, runny nose, cough, headaches, or dizziness. No ches t pain. Review of Systems: Otherwise unremarkable. Medical History: Significant for type 2 diabetes, GERD chronic renal disease, chronic pancreatitis, hypertension and alcohol use in the past. Past Surgical History: Cholecystectomy, left elbow surgery. Allergies: ACETAMINOPHEN CAUSES HIVES. Social History: The patient does not smoke and currently does not drink. He just underwent alcoholi c rehab a month ago. Family History: Significant for colon cancer in the father. Physical Examination: Vital signs: Stable. He is afebrile. General: He is awake, alert, oriented x3. Head and Neck: Cranial nerves 2 through 12 are grossly within normal limits. No neck masses. No JV D. Throat clear. Neck supple. Chest: Clear. Heart: S1, S2. Abdomen: Soft. Extremities: Diminished dorsalis pedis and posterior tibial pulses in the left foot. There is a slade grene at the tip of the left 2nd toe. There is erythema and edema all the way down to the proximal p halanx. The foot itself looks okay on the plantar aspect. Below the 2nd toe on the left foot, there is an ulcer, approximately 3 x 3 cm. It appears to be full thickness. Does not appear to involve t he subcutaneous tissue yet. There is a granulation tissue present with minimal fibrin present. Radiographic Studies: Ultrasound of LOWER extremity arteries show bilateral TAYLOR values measured grea ter than 1 supporting no severe degree of peripheral vascular disease, however, the patient does have monophasic waveform in the dorsalis pedis and posterior tibial on the left side. He had an MRI of t he foot as well which shows osteomyelitis is bone destruction in the 2nd distal phalanx, osteomyeliti s without gross bone destruction present in the 2nd middle phalanx and head of the 2nd proximal phala nx. No osteomyelitic changes involving the metatarsal bone. Extensive inflammatory changes in the s oft tissue, but no abscess or drainable fluid. Laboratory Data: White count is 6.2, H and H is 10.8 and 31.9 and platelets are 229. Chemistry revi ewed. Assessment: A 65-year-old gentleman with multiple medical problems, left 2nd toe gangrene and osteom yelitis. Recommendations: IV antibiotics as ordered. N.p.o. To the OR for left 2nd toe amputation. The pat ient understands the risks, benefits, and alternatives and agrees to procedure. /MODL Voice ID: [id number] Report ID: [id number]
[2020-11-30] MEDS ORDERED: ONDANSETRON 4 MG/2 ML VIAL ONE (11:21)
[2020-11-30] MEDS ORDERED: COLLAGENASE 30 GM OINTMENT TOP ONE (11:22)
--- NOTE | 2020-11-30 11:58 | OP ---
Date of Procedure: 11/30/2020 Surgeon: Cal Aviles MD Central Supply Manager: None. Preoperative Diagnosis: Osteomyelitis and gangrene, left second toe. Postoperative Diagnosis: Osteomyelitis and gangrene, left second toe. Procedure Performed: Left second toe amputation. Estimated Blood Loss: Minimal. Specimen: Culture and sensitivity of pus and infected bone and left second toe. Findings: As above. Anesthesia: General. Complications: None. Disposition: The patient tolerated the procedure in stable condition, taken back to his room in good general condition as he is a COVID positive patient. Operative Note: The patient was brought to the OR and placed in supine position. General anesthesia was begun. The patient was prepped and draped in the usual sterile fashion and then a 15 blade was used to make an ellipse of skin around the base of the left second toe where normal healthy skin was present in the proximal phalanx region and then dissection proceeded down to the proximal toe, bone, the entire shaft, and head of the proximal toe as well as the middle and the distal toe were excised and amputated with bone cutter and sent to pathology. A rongeur was used to smoothen out rough edges and then we irrigated and bleeding controlled with cautery and then 2-0 nylon was used in an interru pted fashion to loosely approximate the skin. The patient had an ulcer on the plantar aspect which w as cleaned, was full thickness. There was good granulation tissue with minimal fibrin present which was debrided and then collagenase dressing was applied to that wound. Sterile dressing was applied t o the foot wound and then the patient was awakened and taken back to his room. /MODL Voice ID: [id number] Report ID: [id number]
--- NOTE | 2020-11-30 13:03 | P.PN ---
Subjective Date of Service: 11/30/20 Primary Care Provider: Dr. Horne; Podiatry-Dr. Kiser Chief Complaint: Left 2nd toe infection Subjective: Improving, Doing well Physical Examination - Vital Signs Temperature: 97.2 F Blood Pressure: 160/72 Pulse: 59 Respirations: 16 Pulse Ox (%): 98 Assessment & Plan Discharge Plan: Home Plan to discharge in: 24 Hours Physician Review Additional Text: Physical exam: Patient alert, cooperative. No significant distress noted. Heart: Regular rate rhythm Lungs: Clear to auscultation Abdomen: Soft nontender nondistended Extremities: Good range of motion to the upper lower extremities. No significant change in erythema, swelling to the 2nd left toe. Maybe minimal improvement noted. Patient able to ambulate. Impression: Left 2nd toe osteomyelitis with bone descruction in the second distal phalanx status post amputation Acute on chronic renal disease stage III Diabetes mellitus type 2 with hyperglycemia insulin-dependent Hypertension Hyperlipidemia Prior alcohol use now sober PVD Recent COVID 19 positive Plan: Left 2nd toe osteomyelitis with bone descruction in the second distal phalanx status post amputation: Spoke with surgery after amputation of the 2nd toe. Cultures obtained. Continue monitor the patient Overnite. Anticipate discharge tomorrow on Cipro and doxycycline. Continue IV antibiotic therapy at this time. Doppler study shows no significant stenosis but PVD noted. Will monitor the patient closely. Anticipate discharge tomorrow morning. Acute on chronic renal disease stage III: Dc IV fluids. Will monitor closely. Pharmacy to monitor and adjust medication. Diabetes mellitus type 2 with hyperglycemia insulin-dependent: Continue basal insulin. Accu-Cheks in place. Hemoglobin A1c 8.6.. Hypertension: Hold lisinopril. Continue losartan. Norvasc added for better control. Hyperlipidemia: Continue Lipitor. Prior alcohol use now sober: Patient recently at alcohol rehab. Patient has been sober. Continue vitamin supplementation. PVD: Continue with aspirin Recent COVID 19 positive: Patient remains positive. Patient asymptomatic. Time Spent Managing Pts Care (In Minutes): 55
[2020-11-30] MEDS: TRAMADOL HCL 50 MG TAB PO PRN ×2 (15:09→21:46)
[2020-11-30] MEDS: VANCOMYCIN 1.5 GM in NA CHLORIDE 0.9% 500 ML IVPB SCH (17:56)
[2020-11-30] MEDS: INSULIN GLARGINE 100 UNITS/ML SQ SCH (21:43)
[2020-11-30] MEDS: ATORVASTATIN 20 MG TAB PO SCH (21:44)
[2020-11-30 23:57] VITALS: BMI 29.5
[2020-12-01 04:14] LABS: Absolute Lymphocytes (CBC) 1.7 K/uL (0.7-4.9); Basophils % 0.9 % (0-1.3); Hematocrit 31.9 % (39.6-49.0); Lymphocytes % 24.4 % (15.3-44.8); MPV 9.8 fL (7.6-11.3); RBC Red Blood Cell Count 3.37 M/uL (4.33-5.43)
[2020-12-01 04:26] LABS: Magnesium 1.8 mg/dL (1.8-2.4); Potassium 4.5 mmol/L (3.5-5.1)
[2020-12-01] MEDS: PANTOPRAZOLE 40MG TABLET PO SCH (06:47)
[2020-12-01] MEDS: INSULIN -REGULAR HUMAN 50 UNIT/0.5 ML ML SQ SCH (07:30)
[2020-12-01] MEDS ORDERED: MAGNESIUM SULFATE 1 gm IVPB 1 GM/100 ML BAG IV ONE (07:48)
[2020-12-01] MEDS: CEFEPIME/SWI 1gm 10 ML IV SCH (08:36)
[2020-12-01] MEDS: THIAMINE HCL 100 MG TABLET PO SCH (08:37)
[2020-12-01] MEDS: LOSARTAN POTASSIUM 50 MG TABLET PO SCH (08:37)
[2020-12-01] MEDS: AMLODIPINE 5 MG TAB PO SCH (08:37)
[2020-12-01] MEDS: MULTIVIT W/ MINERAL TAB PO SCH (08:37)
[2020-12-01] MEDS: ASPIRIN EC 81 MG TAB PO SCH (08:37)
[2020-12-01] MEDS: ENOXAPARIN 40 MG/0.4 ML SQ SCH (08:37)
[2020-12-01] MEDS: VITAMIN D 1000 UNIT TAB PO SCH (08:38)
[2020-12-01] MEDS: TRAMADOL HCL 50 MG TAB PO PRN (08:39)
[2020-12-01 08:40] VITALS: BP 154/76
[2020-12-01 08:51] VITALS: TEMP 97.7
--- NOTE | 2020-12-01 09:05 | P.DS ---
Admission Date: 11/28/20 Discharge Date: 12/01/20 Primary Care Provider: Dr. Horne; Podiatry-Dr. Kiser Disposition: ROUTINE DISCHARGE Discharge Condition: GOOD Reason for Admission: Left 2nd toe infection Consultations: Surgery-Dr. Aviles Procedures: COVID: Positive Left foot MRI: FINDINGS: The second metatarsal and base of the second proximal phalanx show normal MR signal characteristics. There is hypointense T1 and hyperintense T2 signal in the head of the second proximal phalanx. Extensive hypointense T1 and hyperintense T2 signal present throughout the entirety of the second middle phalanx. Joint capsule of the second DIP joint has been disrupted with distal phalanx displaced several mm from the middle phalanx. Cortical margins are poorly defined in the second distal phalanx. Extensive edematous/ inflammatory signal surrounds the second toe from the mid proximal phalanx level to the tip. No drainable fluid collection. Wound in the ball of the foot near the second MTP joint shows no abscess or drainable fluid collection. The first toe and the third- fifth toe show no suspicious findings. No metatarsal or tarsal acute signal abnormality. Degenerative changes are present. IMPRESSION: Osteomyelitis with bone destruction in the second distal phalanx. Osteomyelitis without gross bone destruction present in the second middle phalanx and head of the second proximal phalanx. No osteomyelitis changes involving the metatarsal bones. Extensive inflammatory change in the soft tissues but no abscess or drainable fluid collection. Dopper: FINDINGS: TAYLOR values are 1.23 on the right and 1.14 on the left. Toe index values are 1.40 on the right and 1.07 on the left. Triphasic waveforms were identified in the bilateral common femoral and superficial femoral arteries as well as the left popliteal artery. Right popliteal artery with biphasic. Biphasic waveform pattern seen in the right posterior tibial and dorsalis pedis arteries with the left ankle arteries monophasic. No occlusion or focal flow restricting lesion. Atherosclerotic calcifications are seen in the arterial tree. IMPRESSION: Bilateral TAYLOR values and toe index values measure greater than 1.00 supporting no severe degree of peripheral vascular disease. The patient does have a monophasic waveform pattern in the dorsalis pedis and posterior tibial arteries of the left ankle indicating greater disease than the right lower extremity. No occlusion or focal flow restricting lesion identified. Surgery: Date of Procedure: 11/30/2020 Surgeon: Cal Aviles MD Transportation Aide: None. Preoperative Diagnosis: Osteomyelitis and gangrene, left second toe. Postoperative Diagnosis: Osteomyelitis and gangrene, left second toe. Procedure Performed: Left second toe amputation. Estimated Blood Loss: Minimal. Specimen: Culture and sensitivity of pus and infected bone and left second toe. Findings: As above. Anesthesia: General. Complications: None. Medical problem list: Left 2nd toe osteomyelitis with bone descruction in the second distal phalanx status post amputation of the left 2nd toe Acute on chronic renal disease stage III Diabetes mellitus type 2 with hyperglycemia insulin-dependent Hypertension Hyperlipidemia Prior alcohol use now sober PVD Recent COVID 19 positive GERD Anemia of chronic disease, iron deficiency Brief History of Present Illness: 65-year-old male with history of diabetes, hypertension, chronic renal disease, GERD, obstructive sleep apnea, diabetic neuropathy and hyperlipidemia. 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 Patient was recently discharge from alcoholic rehab in [place] on November 01. He has remained sober since that time. Prior to discharge patient had bumped his left 2nd toe while doing physical therapy on a bike. Since that time he has reported some changes to the skin of the 2nd toe. Inflammation noted. There appeared to be a small blister to the sole of his foot near the 2nd toe. He has neuropathy and is not able to feel pain. Due to the changes of erythema, swelling to the left 2nd toe a came to the ER for further evaluation. In the ER patient was evaluated. White count within normal range. CRP slightly elevated. Pro calcitonin unremarkable. X-ray of the foot appears to have some indication of osteomyelitis. Sodium 135, potassium within normal range. Glucose elevated greater than 200. Creatinine 1.7 with a GFR 36. Patient admitted for further evaluation and treatment. Hospital Course: Patient presented with left 2nd toe osteomyelitis with bone destruction in the sec and distal phalanx. Patient received IV antibiotic therapy. Patient seen and evaluated by surgery. MRI showed osteomyelitis. Arterial Doppler shows PVD without significant stenosis. Surgery recommended intervention. Patient had left 2nd toe amputation. Patient has done well post operatively. Cultures have been sent. At discharge the patient will continue with current wound care as recommended by surgery. At discharge patient will continue with Cipro 250 mg 1 pill twice daily and doxycycline 100 mg twice daily for 7 days. Patient will [facility] to follow up this hospitalization and continue his care. PCP or surgery will need a follow up on wound cultures obtained from surgery. Fall precautions in place. Education on osteomyelitis will be provided. Patient with acute on chronic renal disease stage III. This improved with IV fluids. Medications have been adjusted. Recommend no further use of nonsteroidal anti-inflammatories. Future medications would to be renally dose. Patient will no longer take Lasix 20 mg daily. Recommend to recheck lab-BMP in 1-2 weeks to monitor stability. Patient with diabetes mellitus type 2 insulin dependent. Patient with hyperglycemia. Hemoglobin A1c 8.6. At discharge patient will continue with his current medication-Tresiba but at 10 units daily. Patient also takes Humalog sliding scale.. Recommend to monitor blood sugar daily. Recommend to maintain blood sugar less than 140 fasting and less than 200 after meals. Further adjustment in medication may be required. May need to hold insulin if blood sugar less than 100. This can be done with the help of his PCP. Recommend follow up with PCP to further monitor and adjust medication. Patient with hypertension. Medications have been adjusted due to his chronic renal disease. Patient will no longer take lisinopril. Norvasc was added. Blood pressure better controlled. Patient will continue with losartan 50 mg 1 pill twice daily and Norvasc 5 mg daily. Recommend to monitor blood pressure daily. Recommend to maintain blood pressure less than 130/80. If blood pressure remains above 140/90 then he will need to call his PCP for further adjustment in medication. Recommend follow up in 1 week with PCP to further monitor and adjust medication. Patient with hyperlipidemia. At discharge patient will continue with Lipitor 20 mg daily. As mentioned above patient with PVD. At discharge patient will continue with aspirin 81 mg daily. Patient with recent inpatient rehab for alcohol abuse. Patient has done well. Patient remain sober. Patient plans to continue to remain sober in the future. At discharge patient will continue with thiamine 100 mg 1 pill twice daily and multi vitamin daily. Patient may continue with alcoholics anonymous as an outpatient. Patient with COVID 19 positive status. Recommend to continue with CDC guidelines on isolation and education. Patient asymptomatic at this time. Patient breathing appropriately. At discharge patient may continue with current vitamin supplementation including vitamin-C 500 mg 3 times a day, vitamin-D 2000 units daily, zinc 220 mg daily, and melatonin 5 mg daily. Patient will continue with face mask use, hand washing and social distancing. Will recommend to discontinue Ambien since the patient will be on melatonin. Patient with anemia of chronic disease with iron deficiency. At discharge patient will continue with multi vitamin and iron 65 mg daily. Recommend to recheck CBC in 2-4 weeks to monitor stability. Patient with GERD. At discharge patient may continue with Protonix 40 mg daily. Recommend to discontinue Pepcid. Vital Signs/Physical Exam: Temp Pulse Resp BP Pulse Ox 97.7 F 61 16 154/76 H 98 12/01/20 08:00 12/01/20 08:37 12/01/20 08:39 12/01/20 08:37 12/01/20 08:39 General: Alert, In no apparent distress, Oriented x3, Cooperative HEENT: Atraumatic Neck: Supple Respiratory: Clear to auscultation bilaterally, Normal air movement Cardiovascular: Normal pulses, Regular rate/rhythm Gastrointestinal: Normal bowel sounds, Soft and benign, Non-distended, No tenderness, No masses, No rebound, No guarding Musculoskeletal: No warmth Integumentary: Other (Bandage to the left foot noted.) Neurological: Normal speech, Normal strength at 5/5 x4 extr, Normal tone, Normal affect Laboratory Data at Discharge: WBC 6.90 K/uL (4.3-10.9) 12/01/20 03:26 Hgb 10.8 g/dL (13.6-17.9) L 12/01/20 03:26 Hct 31.9 % (39.6-49.0) L 12/01/20 03:26 Plt Count 214 K/uL (152-406) 12/01/20 03:26 Sodium 141 mmol/L (136-145) 12/01/20 03:26 Potassium 4.5 mmol/L (3.5-5.1) 12/01/20 03:26 BUN 10 mg/dL (7-18) 12/01/20 03:26 Creatinine 1.29 mg/dL (0.55-1.3) 12/01/20 03:26 Glucose 66 mg/dL (74-106) L 12/01/20 03:26 Magnesium 1.8 mg/dL (1.8-2.4) 12/01/20 03:26 Total Bilirubin 0.5 mg/dL (0.2-1.0) 11/28/20 15:13 AST 10 U/L (15-37) L 11/28/20 15:13 ALT 12 U/L (12-78) 11/28/20 15:13 Alkaline Phosphatase 146 U/L (45-117) H 11/28/20 15:13 Home Medications: Pantoprazole Sodium 40 mg PO DAILY 08/20/18 Atorvastatin Calcium [Lipitor*] 20 mg PO BEDTIME 11/01/19 Insulin Lispro [Humalog Kwikpen U-200] 10 unit SQ TID* 06/28/20 Iron 65 mg PO DAILY 08/25/20 Losartan Potassium [Cozaar] 50 mg PO BID 08/25/20 Multivitamin/Iron/Folic Acid [Centrum Adults Tablet] 1 ea PO DAILY 08/25/20 Amlodipine [Norvasc*] 5 mg PO DAILY #30 tab 12/01/20 Ascorbic Acid [Vitamin C] 500 mg PO TID #90 tablet.er 12/01/20 Aspirin [Aspirin EC 81 MG] 81 mg PO DAILY #90 tablet. 12/01/20 Cholecalciferol (Vitamin D3) [Vitamin D 1000 Iu Tab] 2,000 unit PO DAILY #60 tab 12/01/20 Ciprofloxacin HCl [Cipro 250 MG Tablet*] 250 mg PO BID #14 tab 12/01/20 Doxycycline Hyclate 100 mg PO BID #14 tablet 12/01/20 Insulin Degludec [Tresiba Flextouch U-200] 10 units SQ BEDTIME #1 12/01/20 Melatonin 5 mg PO BEDTIME #30 tablet 12/01/20 Thiamine HCl 100 mg PO BID #60 tablet 12/01/20 Zinc Sulfate [Zinc Sulfate*] 220 mg PO DAILY #30 cap 12/01/20 New Medications: Aspirin [Aspirin EC 81 MG] 81 mg PO DAILY #90 tablet. Ciprofloxacin HCl [Cipro 250 MG Tablet*] 250 mg PO BID #14 tab Doxycycline Hyclate 100 mg PO BID #14 tablet Melatonin 5 mg PO BEDTIME #30 tablet Amlodipine [Norvasc*] 5 mg PO DAILY #30 tab Thiamine HCl 100 mg PO BID #60 tablet Insulin Degludec [Tresiba Flextouch U-200] 10 units SQ BEDTIME #1 Ascorbic Acid [Vitamin C] 500 mg PO TID #90 tablet.er Cholecalciferol (Vitamin D3) [Vitamin D 1000 Iu Tab] 2,000 unit PO DAILY #60 tab Zinc Sulfate [Zinc Sulfate*] 220 mg PO DAILY #30 cap Physician Discharge Instructions: Patient presented with left 2nd toe osteomyelitis with bone destruction in the sec and distal phalanx. Patient received IV antibiotic therapy. Patient seen and evaluated by surgery. MRI showed osteomyelitis. Arterial Doppler shows PVD without significant stenosis. Surgery recommended intervention. Patient had left 2nd toe amputation. Patient has done well post operatively. Cultures have been sent. At discharge the patient will continue with current wound care as recommended by surgery. At discharge patient will continue with Cipro 250 mg 1 pill twice daily and doxycycline 100 mg twice daily for 7 days. Patient will [facility] to follow up this hospitalization and continue his care. PCP or surgery will need a follow up on wound cultures obtained from surgery. Fall precautions in place. Education on osteomyelitis will be provided. Patient with acute on chronic renal disease stage III. This improved with IV fluids. Medications have been adjusted. Recommend no further use of n onsteroidal anti-inflammatories. Future medications would to be renally dose. Patient will no longer take Lasix 20 mg daily. Recommend to recheck lab-BMP in 1-2 weeks to monitor stability. Patient with diabetes mellitus type 2 insulin dependent. Patient with hyperglycemia. Hemoglobin A1c 8.6. At discharge patient will continue with his current medication-Tresiba but at 10 units daily. Patient also takes Humalog sliding scale.. Recommend to monitor blood sugar daily. Recommend to maintain blood sugar less than 140 fasting and less than 200 after meals. Further adjustment in medication may be required. May need to hold insulin if blood sugar less than 100. This can be done with the help of his PCP. Recommend follow up with PCP to further monitor and adjust medication. Patient with hypertension. Medications have been adjusted due to his chronic renal disease. Patient will no longer take lisinopril. Norvasc was added. Blood pressure better controlled. Patient will continue with losartan 50 mg 1 pill twice daily and Norvasc 5 mg daily. Recommend to monitor blood pressure daily. Recommend to maintain blood pressure less than 130/80. If blood pressure remains above 140/90 then he will need to call his PCP for further adjustment in medication. Recommend follow up in 1 week with PCP to further monitor and adjust medication. Patient with hyperlipidemia. At discharge patient will continue with Lipitor 20 mg daily. As mentioned above patient with PVD. At discharge patient will continue with aspirin 81 mg daily. Patient with recent inpatient rehab for alcohol abuse. Patient has done well. Patient remain sober. Patient plans to continue to remain sober in the future. At discharge patient will continue with thiamine 100 mg 1 pill twice daily and multi vitamin daily. Patient may continue with alcoholics anonymous as an outpatient. Patient with COVID 19 positive status. Recommend to continue with CDC guidelines on isolation and education. Patient asymptomatic at this time. Patient breathing appropriately. At discharge patient may continue with current vitamin supplementation including vitamin-C 500 mg 3 times a day, vitamin-D 2000 units daily, zinc 220 mg daily, and melatonin 5 mg daily. Patient will continue with face mask use, hand washing and social distancing. Will recommend to discontinue Ambien since the patient will be on melatonin. Patient with anemia of chronic disease with iron deficiency. At discharge patient will continue with multi vitamin and iron 65 mg daily. Recommend to recheck CBC in 2-4 weeks to monitor stability. Patient with GERD. At discharge patient may continue with Protonix 40 mg daily. Recommend to discontinue Pepcid. Diet: ADA Activity: Fall precautions Followup: Senthil Horne MD [Primary Care Provider] - Cal Aviles MD [ACTIVE - CAN ADMIT] - 1-2 Weeks ([facility] in my clinic) Time spent managing pt's care (in minutes): 55
[2020-12-01 10:05] VITALS: O2SAT 99
[2020-12-01] MEDS ORDERED: D50W 25 GM/50 ML VIAL IV PRN (12:00)
[2020-12-02] MEDS ORDERED: PANTOPRAZOLE 40MG TABLET PO SCH (07:30)
== END 2020-12-01 11:53 | disposition home health service (06) | DRG 616 ==
LOC: ER 11:57 → ERHOLD 17:10 → 4TH 18:08
PROVIDERS: ADMIT Family Medicine; ATTEND Family Medicine
PROC: 0Y6S0Z1 Detachment at Left 2nd Toe, High, Open Approach (ICD-10-PCS; principal; 2020-11-30 10:30)
DX: E11.69 Type 2 diabetes mellitus with other specified complication (principal); U07.1 COVID-19; E11.52 Type 2 diabetes mellitus with diabetic peripheral angiopathy with gangrene; M86.8X7 Other osteomyelitis, ankle and foot; I96 Gangrene, not elsewhere classified; I12.9 Hypertensive chronic kidney disease with stage 1 through stage 4 chronic kidney disease, or unspecified chronic kidney disease; N18.30 Chronic kidney disease, stage 3 unspecified; E11.22 Type 2 diabetes mellitus with diabetic chronic kidney disease; E11.65 Type 2 diabetes mellitus with hyperglycemia; E11.621 Type 2 diabetes mellitus with foot ulcer; E11.51 Type 2 diabetes mellitus with diabetic peripheral angiopathy without gangrene; L97.529 Non-pressure chronic ulcer of other part of left foot with unspecified severity; K21.9 Gastro-esophageal reflux disease without esophagitis; D50.9 Iron deficiency anemia, unspecified; E11.40 Type 2 diabetes mellitus with diabetic neuropathy, unspecified; E78.5 Hyperlipidemia, unspecified; Z88.1 Allergy status to other antibiotic agents; Z90.49 Acquired absence of other specified parts of digestive tract; Z79.4 Long term (current) use of insulin; Z79.899 Other long term (current) drug therapy
CPT/HCPCS: 36415; 80048; 80053; 81003; 81015; 82947; 83036; 83605; 83735; 84145; 84439; 84443; 85025; 86140; 87040; 87070; 87075; 87077; 87086; 87088; 87176; 87186; 87205; 88305; 88311; 93925; 96374; 96375; 99285; J0692; J1650; J1815; J2405; J2704; J3010; J3370; J3475; J3590; J7030; J7040; J7050; U0003

== ENCOUNTER 2022-10-02 16:15 | Emergency (ER) | payer OTHER ==
--- OUTSIDE RECORDS SUMMARY | 2022-10-02 16:20 | XMS REPORT | Continuity of Care Document ---
:1955 Author Organization [facility] t Address [address] [place] [address] Care Team Providers Name Role Phone PCP, PATIENT DOES NOT HAVE A Primary Care Physician Unavaila Carlos Woody Attending Clinician Unavailable LEYDI PRATT Attending Clinician Unavailable Venus Vásquez MD Attending Clinician Leydi Michael Attending Clinician VENUS VÁSQUEZ Attending Clinician Unavailable ROBERT HILL Attending Clinician Unavailable Carlos Titus Admitting Clinician Unavailable Payers Payer Name Policy Type Policy Number Effective Date Expiration Date S katie MEDICARE PART A [id number] 2018 \T\ B 00:00:00 MANAGED MEDICARE [id number] PPO/FFS GENERIC Problems Condition Condition Condition Status Onset Resolution Last Treating Co mments Source Name Details Category Date Date Treatment Clinician Date No known No known Disease Unive rs active active ity of problems problems [facility] Allergies, Adverse Reactions, Alerts Allergy Allergy Status Severity Reaction(s) Onset Inactive Treating Comm ents Source Name Type Date Date Clinician No Known DA Active U [facility] Clear Allergie 00:00: Zheng s 00 [facility] No Known DA Active U [facility] Clear Allergie 00:00: Zheng s 00 [facility] NO KNOWN Drug Active Univers ALLERGIE Class ity of S [facility] Social History Social Habit Start Date Stop Date Quantity Comments Source Tobacco use and 2020-12-13 2020-12-13 Never used [facility] exposure 00:00:00 00:00:00 [facility] Sex Ass[birth year] [facility] 00:00:00 00:00:00 [facility] Smoking Status Start Date Stop Date Source Former smoker 2020-12-13 00:00:00 2020-12-13 00:00:00 [facility] Medications Ordered Filled Start Stop Current Ordering Indication Dosage Frequency Signature Comments Components Source Medication Medication Date Date Medication? Clinician (SIG) Name Name DICLOFENAC Yes [id number] TAKE 1 U nivers 75 mg EC 5-17 TABLET BY ity of tablet 00:00: MOUTH [place] 00 TWICE A Medical DAY WITH Branch MEALS Immunizations Ordered Filled Immunization Date Status Comments Lorin cotton Immunization Name Name SARS-COV-2 COVID-19 2020-12-15 Completed Unive rsity of PFIZER VACCINE 00:00:[address] [facility] SARS-COV-2 COVID-19 2020-11-24 Completed Unive rsity of PFIZER VACCINE 00:00:[address] [facility] Vital Signs Vital Name Observation Time Observation Value Comments Source Respiratory rate 2021 14:58:00 18 /min [facility] Body weight 2021 14:58:00 90.719 kg [facility] BMI 2021 14:58:00 29.53 kg/m2 [facility] Procedures Procedure Date / Time Performed Performing Clinician Lorin cotton [id number] 2021-05-21 00:00:00 [facility]JEEV [facility] Encounters Start End Encounter Admission Attending Care Care Encounter Source Date/Time Date/Time Type Type Clinicians Facility Department ID 2021-05-21 2021-05-22 Inpatient SHANEL Titus [facility]G [id number] [facility] 06:34:00 15:41:00 [facility] 2021-05-13 2021-05-14 Outpatient ERICA Nam 3DAY [id number] [facility] 09:00:00 23:00:00 Carlos 95 [facility] 2021-05-13 2021-05-13 Outpatient AMANDA TitusCL LABO [id number] [facility] 19:01:00 19:01:00 Carlos 40 [facility] 2021-05-13 2021-05-13 Outpatient AMANDA TitusWU REFE [id number] [facility] 18:10:00 18:10:[address] [facility] 2021 2021 Outpatient Kayla PRATT [facility] [id number] Univers 10:00:00 10:28:39 [facility] 2021 Office Venus Vásquez [facility] [id number] [facility] 09:55:18 10:28:39 Visit Leydi Pratt [facility] [id number] ity of SURGICAL 4.2.7.2.686 Darren as SPECIALTI [id number] Ma dical ES 198 [facility] 2021-02-11 2021-02-11 [facility] [id number] 00:00:00 00:00:00 [facility] [id number] Surgical 4.2.7.2.686 Specialti [id number] es 198 [facility] 2021-02-11 2021-02-11 [facility] [id number] Univers 00:00:00 00:00:00 [facility] [id number] it y of Surgical 4.2.7.2.686 Darren as Specialti [id number] Ma dical es 198 [place] [facility] 2020-12-15 2020-12-15 Outpatient [facility] [id number] Univers 12:45:00 12:45:[address] [facility] 2020-12-13 2020-12-13 [facility] [id number] Univers 14:21:26 23:59:00 Encounter Venus Andino [id number] ity of Surgical 4.2.7.2.686 Darren as Specialti [id number] Me dical es 809 [facility] 2020-12-13 2020-12-13 [facility] [id number] Univers 14:21:26 23:59:00 VENUS [facility] 2020-12-13 2020-12-13 [facility] [id number] 14:21:26 23:59:00 Encounter Venus Andino 350.1.13.10 Surgical 4.2.7.2.686 Specialti [id number] es 809 [facility] 2020-12-13 2020-12-13 Office [facility] [id number] [facility] 14:14:31 14:51:01 Visit Venus Andino 350.1.13.10 it y of Surgical 4.2.7.2.686 Darren as Specialti [id number] Me dical es 198 [facility] 2020-12-13 2020-12-13 Office [facility] [id number] 14:14:31 14:51:01 Visit Venus Andino 350.1.13.10 Surgical 4.2.7.2.686 Specialti [id number] es 198 [place] 2020-11-24 2020-11-24 [facility] [id number] [facility] 12:20:00 12:20:00 [facility] Results Test Description Test Time Test Comments Results Result Comments Source GLUBED 2021-05-27 09:40:00 Test Item Value Reference Range Interpretation Comme nts GLUBED (test code = GLUBED) 316 mg/dL 60-125 H [id number] 09:39:00 Test Item Value Reference Range Interpretation Comments GLUBED (test code = 480 mg/dL 60-125 HH See CRIT ICAL RESULTS GLUBED) Form for docume ntation. BASIC METABOLIC [id number] 11:44:00 Test Item Value Reference Range Interpretation Comments SODIUM (test code = 132 mmol/L 136-145 L NA) POTASSIUM (test code = 5.2 mmol/L 3.5-5.1 H K) CHLORIDE (test code = 96.0 mmol/L 98-107 L CL) CARBON DIOXIDE (test 23.2 mmol/L 21-32 N code = CO2) GLUCOSE (test code = 310 mg/dL 70-110 H GLU) BLOOD UREA NITROGEN 39 mg/dL 7-18 H (test code = BUN) GLOMERULAR FILTRATION 30.1 >60 Unit o f measure: RATE (test code = GFR) mL/mi n/1.73 [id number] Range:Healthy A dults >90 mL/min/1.73 m2 For Chronic Kid chet Disease: Stage II Mild Decrease i n GFR 60-90 Stage III Moderate Decrea se in GFR 30-59 Stage IV Severe Decrease in GFR 15-29 Stage V Kidney Failure <15 CREATININE (test code 2.19 mg/dL 0.55-1.30 H = CREAT) CALCIUM (test code = 9.4 mg/dL 8.2-10.1 N CA) [id number] 11:19:00 Test Item Value Reference Range Interpretation Comments GLUBED (test code = GLUBED) 308 mg/dL 60-125 H BASIC METABOLIC [id number] 07:40:00 Test Item Value Reference Range Interpretation Comments SODIUM (test code = 134 mmol/L 136-145 L NA) POTASSIUM (test code = 6.2 mmol/L 3.5-5.1 HH VERIF IED BY REPEAT K) ANALYSIS.CRITIC AL VALUE CALLED TO ALFREDO NARVAEZ/CHUCK NARVAEZ PCUREAD BACK & CONFIRMED? YESB Y [id number] CHLORIDE (test code = 97.0 mmol/L 98-107 L CL) CARBON DIOXIDE (test 25.2 mmol/L 21-32 N code = CO2) GLUCOSE (test code = 207 mg/dL 70-110 H GLU) BLOOD UREA NITROGEN 32 mg/dL 7-18 H (test code = BUN) GLOMERULAR FILTRATION 32.5 >60 Unit o f measure: RATE (test code = GFR) mL/mi n/1.73 [id number] Range:Healthy A dults >90 mL/min/1.73 m2 For Chronic Kid chet Disease: Stage II Mild Decrease i n GFR 60-90 Stage III Moderate Decrea se in GFR 30-59 Stage IV Severe Decrease in GFR 15-29 Stage V Kidney Failure <15 CREATININE (test code 2.05 mg/dL 0.55-1.30 H = CREAT) CALCIUM (test code = 9.2 mg/dL 8.2-10.1 N CA) HGB [id number] 06:56:00 Test Item Value Reference Range Interpretation Comments HEMOGLOBIN (test code = HGB) 12.6 g/dL 12-16 N HEMATOCRIT (test code = HCT) 37.6 % 37-47 N SPECIMEN COMMENT: POD #[id number] 05:43:00 Test Item Value Reference Range Interpretation Comments GLUBED (test code = GLUBED) 255 mg/dL 60-125 H [id number] 00:34:00 Test Item Value Reference Range Interpretation Comments GLUBED (test code = GLUBED) 146 mg/dL 60-125 H [id number] 22:24:00 Test Item Value Reference Range Interpretation Comments GLUBED (test code = GLUBED) 238 mg/dL 60-125 H [id number] 20:11:00 Test Item Value Reference Range Interpretation Comments GLUBED (test code = 405 mg/dL 60-125 HH See CRIT ICAL RESULTS GLUBED) Form for docume ntation. [id number] 17:16:00 Test Item Value Reference Range Interpretation Comments GLUBED (test code = 457 mg/dL 60-125 HH See CRIT ICAL RESULTS GLUBED) Form for docume ntation. - XR KNEE 1 OR 2 V [id number] 11:56:00 [facility] 1955 Sex: M Patient Name: GRANT GAO Unit No: [id number] EXAMS: CPT CODE: [id number] XR KNEE 1 OR 2 [place] [id number] IMAGES PROVIDED: 2 FINDINGS: Postoperative changes from right total knee arthoplasty demonstratedwithout evidence of immediate complication. No acute fracture is visualized. IMPRESSION: Postoperative exam as above. at 1156 Reported and signed by: Shalom De La Paz M.D. CC: Carlos Titus MD Technologist: CHELY REESE (RT.R) Transcribed D/ (1156) PriyankShilpa [facility] NAME: GRANT GAO [address] [address] PHYS: Carlos Morataya MD : 1955 AGE: 66 SEX: M [place] [address] LOC: Y.312 A PHONE #: [phone] EXAM DATE: 05/21/2021 STATUS: ADM IN FAX #: [phone] RAD #: D/C DT PAGE 1 Signed Report Patient Name: GRANT GAO Unit No: [id number] EXAMS: CPT CODE: [id number] XR KNEE 1 OR 2 V RT 33291 (Continued) Orig Print D/T: S: 05/21/2021 (1159) [facility] NAME: GRANT GAO [address] [facility] [address] PHYS: Carlos Morataya MD : 1955 AGE: 66 SEX: M [place] [address] LOC: Y.312 A PHONE #: [phone] EXAM DATE: 05/21/2021 STATUS: ADM IN FAX #: [phone] RAD #: D/C DT PAGE 2 Signed [id number] 09:14:00 Test Item Value Reference Range Interpretation Comments GLUBED (test code = GLUBED) 280 mg/dL 60-125 H Novel Coronavirus 2019 [id number] 19:16:00 Test Item Value Reference Range Interpretation Comments Novel Coronavirus Negative Negative Positive r esults are 2019 Inhouse (test indicativ e of the presence code = COVNONPUI) ofSARS-CoV -2 RNA, clinical correlation wit h patient historyand othe r diagnostic info rmation is necessary to determinepatien t infection status. Positiv e results do not rule out bacterial infection or co -infection with other viru ses. Negative result s do not preclude SARS-C oV-2 infection andsh ould not be used as the scott e basis for patient managementdecis ions. Negative result s must be combined with otherclinical observations, p atient history, and epidemiological information . Detection of SARS-CoV-2 RNA may be affe cted bysample collec tion methods, storag e conditions, and /or stageof infection. Laura l RNA mutations, vacc inations, antiviraltherap eutics, antibiotics, chemotherapeuti c orimmunosuppres feliz drugs have not been e valuated for effectson d etection. Results are for the identification of SARS-CoV-2 RNA usingthe [employer] M2000 Sy stem under the FDA Emergen cy UseAuthorizatio n. The testing is perf ormed by yari dubois in the procedures for the [employer] M2000 molecular diagnostic SARS-CoV-2 assa y in vitro. Novel Coronavirus 2018 [id number] 19:15:00 Test Item Value Reference Range Interpretation Comments Novel Coronavirus Negative Negative Positive r esults are 2019 Inhouse (test indicativ e of the presence code = COVNONPUI) ofSARS-CoV -2 RNA, clinical correlation wit h patient historyand othe r diagnostic info rmation is necessary to determinepatien t infection status. Positiv e results do not rule out bacterial infection or co -infection with other viru ses. Negative result s do not preclude SARS-C oV-2 infection andsh ould not be used as the scott e basis for patient managementdecis ions. Negative result s must be combined with otherclinical observations, p atient history, and epidemiological information . Detection of SARS-CoV-2 RNA may be affe cted bysample collec tion methods, storag e conditions, and /or stageof infection. Laura l RNA mutations, vacc inations, antiviraltherap eutics, antibiotics, chemotherapeuti c orimmunosuppres feliz drugs have not been e valuated for effectson d etection. Results are for the identification of SARS-CoV-2 RNA usingthe [employer] M2000 Sy stem under the FDA Emergen cy UseAuthorizatio n. The testing is perf ormed by personneltraine d in the procedures for the [employer] M2000 molecular diagnostic SARS-CoV-2 assa y in vitro. COMPREHENSIVE METABOLIC [id number] 20:42:00 Test Item Value Reference Range Interpretation Comments SODIUM (test code = NA) 137 mmol/L 136-145 N POTASSIUM (test code = 4.8 mmol/L 3.5-5.1 N K) CHLORIDE (test code = 99.0 mmol/L 98-107 N CL) CARBON DIOXIDE (test 28.1 mmol/L 21-32 N code = CO2) GLUCOSE (test code = 291 mg/dL 70-110 H GLU) BLOOD UREA NITROGEN 18 mg/dL 7-18 N (test code = BUN) GLOMERULAR FILTRATION 42.0 >60 Unit o f measure: RATE (test code = GFR) mL/mi n/1.73 [id number] Range:Healthy Adults >90 mL/min/1.73 m2 For Chronic Kidney Disease: Stage II Mild Decrease i n GFR 60-90 Stage III Moderate Decrea se in GFR 30-59 St age IV Severe Decre ase in GFR 15-29 St age V Kidney Failur e <15 CREATININE (test code = 1.64 mg/dL 0.55-1.30 H CREAT) TOTAL PROTEIN (test 7.2 g/dL 6.4-8.2 N code = PROT) ALBUMIN (test code = 4.2 g/dL 3.4-5.0 N ALB) GLOBULIN (test code = 3.0 g/dL 2.2-4.2 N GLOB) ALBUMIN/GLOBULIN RATIO 1.4 0.7-2.0 N (test code = A/G) CALCIUM (test code = 9.1 mg/dL 8.2-10.1 N CA) BILIRUBIN TOTAL (test 0.60 mg/dL 0.2-1.00 N code = BILT) SGOT/AST (test code = 11.0 U/L 15-37 L AST) SGPT/ALT (test code = 19.0 U/L 12-78 N Please note new ALT) normal range. ALKALINE PHOSPHATASE 118 U/L 46-116 H TOTAL (test code = ALKP) GLYCOSYLATED HEMOGLOBIN (HA1C)2021-05-13 19:44:00 Test Item Value Reference Range Interpretation Comments GLYCOSYLATED 8.7 % 4.8-5.9 H Any condition t hat shortens HEMOGLOBIN (HA1C) erythocyte survival or (test code = GLYHGB) decreas esmean erythrocyte age (e.g., rima very from acute blood los s,hemolytic anemai) will fa lsely lower HGBA1c resultsr egardless of the method used . HGBA1c results frompat ients with HbSS, HbCC and HbSc must be interpreted wit hcaution given the patho logical processes, incl uding anemia,increase d red cell turnover, trans fusion requirements, t hatadversely impact HGBA1c a s a marker of long-term glycemiccontrol . Alternative for ms of testing such as fructosaminesho uld be considered for these patients.Any co ndition that shortens erytho cyte survival or dec reasesmean erythrocyte age (e.g., recovery from a cute blood loss,hemolytic anemia) will falsely lower H GBA1c resultsregardle ss of the method used. HG BA1c results from patientswi th HbSS, HbCC, and HbSc must be interpreted wit h cautiongiven th e pathological pr ocesses, including anemi a,increased red cell turnov er, transfusion req uirements, thatadversely i mpact HGBA1c as a marker of long-term glycemiccontrol . Alternative for ms of testing such as fructosaminesho uld be considered for these patients.DONE A T: [facility] [address] [facility] [place], [place] [address] GLYCOSYLATED HEMOGLOBIN (HA1C)2021-05-13 19:44:00 Test Item Value Reference Range Interpretation Comments GLYCOSYLATED 8.7 % 4.8-5.9 H Any condition t hat shortens HEMOGLOBIN (HA1C) erythocyte survival or (test code = GLYHGB) decreas esmean erythrocyte age (e.g., rima very from acute blood los s,hemolytic anemia) will fa lsely lower HGBA1c resultsr egardless of the method used . HGBA1c results from lucila arreola HbSS, HbCC, and HbSc must be interpreted with cautiongiven th e pathological pr ocesses, including anemi a,increased red cell turnov er, transfusion req uirements, thatadversely i mpact HGBA1c as a marker of long-term glycemiccontrol . Alternative for ms of testing such as fructosaminesho uld be considered for these patients. CBC W/AUTO [id number] 18:28:00 Test Item Value Reference Range Interpretation Comments WHITE BLOOD CELL (test code = WBC) 8.1 K/mm3 5.7-10.5 N RED BLOOD CELL (test code = RBC) 4.50 M/mm3 4.2-5.4 N HEMOGLOBIN (test code = HGB) 14.3 g/dL 12-16 N HEMATOCRIT (test code = HCT) 41.9 % 37-47 N MEAN CELL VOLUME (test code = MCV) 93 fL 80-98 N MEAN CELL HGB (test code = MCH) 31.8 pg 27-34 N MEAN CELL HGB CONCENTRATION (test 34.1 g/dL 30.8-34.1 N code = MCHC) RED CELL DISTRIBUTION WIDTH (test 12.5 % 11-16 N code = RDW) PLT (test code = PLT) 188 K/mm3 130-400 N MEAN PLATELET VOLUME (test code = 12.7 fL 8.9-12.1 H MPV) NEUTROPHIL % (test code = NT%) 71.4 % 45-70 H LYMPHOCYTE % (test code = LY%) 18.6 % 20-40 L MONOCYTE % (test code = MO%) 6.1 % 3-10 N EOSINOPHIL % (test code = EO%) 2.7 % 1-5 N BASOPHIL % (test code = BA%) 0.7 % 0.0-1.1 N NEUTROPHIL # (test code = NT#) 5.81 K/mm3 2.00-7.50 N LYMPHOCYTE # (test code = LY#) 1.51 K/mm3 1.50-4.00 N MONOCYTE # (test code = MO#) 0.50 K/mm3 0.2-0.8 N EOSINOPHIL # (test code = EO#) 0.22 K/mm3 0.04-0.4 N BASOPHIL # (test code = BA#) 0.06 K/mm3 0.02-0.10 N MANUAL DIFF REQUIRED (test code = NO MANUAL DIFF MDIFF) NUCLEATED RED BLOOD CELL (test 0 % 0-0 N code = NRBC)
[2022-10-02 17:08] LABS: Hematocrit 40.9 % (39.6-49.0); Lymphocytes % 23.2 % (15.3-44.8); MCV 95.1 fL (80-100); MPV 9.1 fL (7.6-11.3)
--- NOTE | 2022-10-02 17:08 | RAD REPORT ---
EXAM DESCRIPTION: RAD - Chest Single View - 10/02/2022 4:59 pm CLINICAL HISTORY: weakness Chest pain. COMPARISON: Chest Single View dated 08/25/2020; Chest Pa And Lat (2 Views) dated 11/01/2019; Chest Sin gle View dated 10/31/2019; Chest Single View dated 01/10/2019 FINDINGS: Portable technique limits examination quality. The lungs are grossly clear. The heart is normal in size. No displaced fractures. IMPRESSION: No acute intrathoracic process suspected.
[2022-10-02 17:32] LABS: Albumin 4.1 g/dL (3.4-5.0); Bilirubin Direct 0.2 mg/dL (0-0.2); Bilirubin Total 0.5 mg/dL (0.2-1.0); Magnesium 2.1 mg/dL (1.6-2.4); Potassium 3.7 mmol/L (3.5-5.1); Protein, Total 7.8 g/dL (6.4-8.2); Troponin High Sensitivity 15.7 pg/mL (<58.9)
[2022-10-02] MEDS ORDERED: Ringers Lactate 1,000 ML IV ONE (17:46)
[2022-10-02 17:57] LABS: Urine Blood Negative (Negative); Urine Glucose Trace (Negative); Urine Protein 2+ (Negative); Urine Specific Gravity 1.015 (1.005-1.030)
[2022-10-02 18:15] LABS: SARS-COV-2 RT PCR POSITIVE (NEGATIVE)
--- NOTE | 2022-10-02 19:39 | EDPHYS ---
Physician Documentation [facility] Name: Shreyas Mckeon Age: 67 yrs Sex: Male : 1955 Arrival Date: 10/02/2022 Time: 16:18 Bed 30 Private MD: ED Physician Ronal Cruz Historical: - Allergies: 10/02 16:31 No Known Allergies; ll1 - PMHx: 16:31 Hypertension; Diabetes - NIDDM; kidney disease; Left foot wound; ll1 - PSHx: 16:31 Cholecystectomy; ll1 - Immunization history:: Client reports receiving the 2nd dose of the Covid vaccine. - Social history:: Smoking status: Patient reports the use of cigarette tobacco products, cigars. Vital Signs: 16:31 BP 152 / 69; Pulse 81; Resp 17; Temp 97.9; Pulse Ox 98% on R/A; ll1 18:05 BP 148 / 56; Pulse 56; Resp 15; Pulse Ox 100% on R/A; em6 18:56 BP 155 / 63; Pulse 75; Resp 17; Pulse Ox 100% on R/A; em6 MDM: 16:34 Patient medically screened. [facility] 19:38 Data reviewed: vital signs, nurses notes. Counseling: I had a detailed discussion with gabriele the patient and/or guardian regarding: the historical points, exam findings, and any diagnostic results supporting the discharge/admit diagnosis, the need for outpatient follow up, to return to the emergency department if symptoms worsen or persist or if there are any questions or concerns that arise at home. 10/02 16:35 Order name: Basic Metabolic Panel; Complete Time: 17:38 [facility] 10/02 16:35 Order name: CBC with Diff; Complete Time: 17:10 [facility] 10/02 16:35 Order name: LFT's; Complete Time: 17:38 [facility] 10/02 16:35 Order name: Magnesium; Complete Time: 17:38 [facility] 10/02 16:35 Order name: NT PRO-BNP; Complete Time: 17:38 [facility] 10/02 16:35 Order name: PT-INR; Complete Time: 17:17 [facility] 10/02 16:35 Order name: Troponin HS; Complete Time: 17:38 [facility] 10/02 16:35 Order name: XRAY Chest (1 view); Complete Time: 17:10 [facility] 10/02 16:35 Order name: EKG; Complete Time: 16:35 [facility] 10/02 16:35 Order name: Cardiac monitoring; Complete Time: 17:40 [facility] 10/02 16:35 Order name: EKG - Nurse/Tech; Complete Time: 17:40 [facility] 10/02 16:35 Order name: COVID-19/FLU A+B; Complete Time: 18:17 [facility] 10/02 17:57 Order name: Urine Dipstick-Ancillary; Complete Time: 18:10 [facility] 10/02 16:35 Order name: IV Saline Lock; Complete Time: 16:59 [facility] 10/02 16:35 Order name: Labs collected and sent; Complete Time: 16:59 [facility] 10/02 16:35 Order name: O2 Per Protocol; Complete Time: 17:40 [facility] 10/02 16:35 Order name: O2 Sat Monitoring; Complete Time: 17:40 [facility] 10/02 16:35 Order name: Urine Dipstick-Ancillary (obtain specimen); Complete Time: 17:02 [facility] Administered Medications: 17:47 Drug: Lactated Ringers Solution 1000 ml Route: IV; Rate: 500 ml/hr; Site: right forearm;em6 19:41 Follow up: Response: No adverse reaction; IV Status: Completed infusion; IV Intake: em6 1000ml Disposition: 10/03 08:48 Co-signature as Attending Physician, Ronal Cruz DO I was immediately available on-site ms3 in the Emergency Department for consultation in the care of the patient. Disposition Summary: 10/02/22 19:38 Discharge Ordered Location: Home [facility] Condition: Stable [facility] Diagnosis - Coronavirus infection, unspecified jmm - Dehydration [facility] Followup: [facility] - With: Private Physician - When: 2 - 3 days - Reason: Recheck today's complaints, Continuance of care, Re-evaluation by your physician Discharge Instructions: - Discharge Summary Sheet [facility] - Dehydration, Adult jm Forms: - Medication Reconciliation Form [facility] - Thank You Letter [facility] - Antibiotic Education jmm - Prescription Opioid Use [facility] Signatures: Dispatcher [employer] EDMS Man Amezquita PA PA jmm Ritesh Hernandez RN RN ll1 Ronal Cruz DO DO ms3 Tong, Caitlin, RN RN em6
--- NOTE | 2022-10-02 19:39 | ER ---
Nurse's Notes [facility] Ju Name: Shreyas Mckeon Age: 67 yrs Sex: Male : 1955 Arrival Date: 10/02/2022 Time: 16:18 Bed 30 Private MD: Diagnosis: Coronavirus infection, unspecified;Dehydration Presentation: 10/02 16:31 Chief complaint: Patient states: Weakness for a couple days. Home covid test positive ll1 last week. No known fever. Coronavirus screen: Vaccine status: Patient reports receiving the 2nd dose of the covid vaccine. Client denies travel out of the [place] in the last 14 days. Ebola Screen: Patient denies travel to an Ebola-affected area in the 21 days before illness onset. No acute neurological deficit is noted. Initial Sepsis Screen: Does the patient meet any 2 criteria? No. Patient's initial sepsis screen is negative. Does the patient have a suspected source of infection? Yes: Productive cough/pneumonia. Risk Assessment: Do you want to hurt yourself or someone else? Patient reports no desire to harm self or others. Onset of symptoms was October 01, 2021. 16:31 Method Of Arrival: Ambulatory ll1 16:31 Acuity: FRIDA 3 ll1 Triage Assessment: 16:50 General: Appears comfortable, Behavior is cooperative. em6 Stroke Activation: Symptom onset > 6 hours Physician: Stroke Attending; Name: ; Notified At: ; Arrived At: Physician: Chief Stroke Resident; Name: ; Notified At: ; Arrived At: Physician: Stroke Resident; Name: ; Notified At: ; Arrived At: Physician: ED Attending; Name: ; Notified At: ; Arrived At: Physician: ED Resident; Name: ; Notified At: ; Arrived At: Historical: - Allergies: 16:31 No Known Allergies; ll1 - PMHx: 16:31 Hypertension; Diabetes - NIDDM; kidney disease; Left foot wound; ll1 - PSHx: 16:31 Cholecystectomy; ll1 - Immunization history:: Client reports receiving the 2nd dose of the Covid vaccine. - Social history:: Smoking status: Patient reports the use of cigarette tobacco products, cigars. Screenin:50 [facility] ED Fall Risk Assessment (Adult) History of falling in the last 3 months, em6 including since admission No falls in past 3 months (0 pts) Confusion or Disorientation No (0 pts) Intoxicated or Sedated No (0 pts) Impaired Gait No (0 pts) Mobility Assist Device Used No (0 pt) Altered Elimination No (0 pt) Score/Fall Risk Level 0 - 2 = Low Risk Oriented to surroundings, Maintained a safe environment, Educated pt \T\ family on fall prevention, incl call for assistance when getting out of bed, Assessed \T\ reinforced patient's understanding of fall precautions, Provided non-skid footwear, Hourly rounding (assess needs \T\ fall precautionary measures) done, Used ambulatory aids as needed (educated on \T\ assisted with), Used gait belt as appropriate. Abuse screen: Denies threats or abuse. Nutritional screening: No deficits noted. Tuberculosis screening: No symptoms or risk factors identified. Assessment: 16:50 Pain: Denies pain. Neuro: Level of Consciousness is awake, alert, obeys commands, em6 Oriented to person, place, time, situation, Reports weakness. Cardiovascular: Patient's skin is warm and dry. Rhythm is sinus bradycardia. Respiratory: Reports cough that is Airway is patent Respiratory effort is even, unlabored, Respiratory pattern is regular, symmetrical. GI: Abdomen is non-distended, Bowel sounds present X 4 quads. Abd is soft and non tender X 4 quads. : No signs and/or symptoms were reported regarding the genitourinary system. EENT: No signs and/or symptoms were reported regarding the EENT system. Derm: No signs and/or symptoms reported regarding the dermatologic system. Musculoskeletal: Circulation, motion, and sensation intact. Range of motion: intact in all extremities. 17:50 Reassessment: Patient appears in no apparent distress at this time. No changes from em6 previously documented assessment. Patient and/or family updated on plan of care and expected duration. Pain level reassessed. Patient is alert, oriented x 3, equal unlabored respirations, skin warm/dry/pink. 18:50 Reassessment: Patient appears in no apparent distress at this time. No changes from em6 previously documented assessment. Patient and/or family updated on plan of care and expected duration. Pain level reassessed. Patient is alert, oriented x 3, equal unlabored respirations, skin warm/dry/pink. Vital Signs: 16:31 BP 152 / 69; Pulse 81; Resp 17; Temp 97.9; Pulse Ox 98% on R/A; ll1 18:05 BP 148 / 56; Pulse 56; Resp 15; Pulse Ox 100% on R/A; em6 18:56 BP 155 / 63; Pulse 75; Resp 17; Pulse Ox 100% on R/A; em6 ED Course: 16:18 Patient arrived in ED. rg4 16:20 Man Amezquita PA is PHCP. jmm 16:20 Ronal Cruz DO is Attending Physician. jmm 16:33 Triage completed. ll1 16:33 Arm band placed on Patient placed in an exam room, on a stretcher. ll1 16:50 Caitlin Fortune, BRICE is Primary Nurse. em6 16:50 Bed in low position. Call light in reach. Side rails up X 1. quality assurance monitor on. Pulse em6 ox on. NIBP on. Warm blanket given. 16:58 Inserted saline lock: 20 gauge in right forearm, using aseptic technique. Blood zm collected. 16:59 COVID-19/FLU A+B Sent. zm 16:59 Basic Metabolic Panel Sent. zm 16:59 CBC with Diff Sent. zm 16:59 LFT's Sent. zm 16:59 Magnesium Sent. zm 16:59 NT PRO-BNP Sent. zm 16:59 PT-INR Sent. zm 16:59 Troponin HS Sent. zm 17:01 XRAY Chest (1 view) In Process Unspecified. EDMS 19:49 No provider procedures requiring assistance completed. IV discontinued, intact, em6 bleeding controlled, No redness/swelling at site. Pressure dressing applied. Administered Medications: 17:47 Drug: Lactated Ringers Solution 1000 ml Route: IV; Rate: 500 ml/hr; Site: right forearm;em6 19:41 Follow up: Response: No adverse reaction; IV Status: Completed infusion; IV Intake: em6 1000ml Medication: 19:49 VIS not applicable for this client. em6 Intake: 19:41 IV: 1000ml; Total: 1000ml. em6 Outcome: 19:38 Discharge ordered by . [facility] 19:49 Discharged to home ambulatory, with family. em6 19:49 Condition: stable 19:49 Discharge instructions given to patient, Instructed on discharge instructions, follow up and referral plans. Demonstrated understanding of instructions, follow-up care. 19:49 Patient left the ED. em6 Signatures: Dispatcher [employer] Man Woodward PA PA jmm Garcia, Rubi rg4 Ritesh Hernandez RN RN ll1 Julia Fortune Erika, BRICE RN em6
[2022-10-02 19:58] VITALS: TEMP 97.9
[2022-10-02 20:04] VITALS: O2SAT 100
[2022-10-02 20:10] VITALS: BP 155/63
--- NOTE | 2022-10-04 17:43 | EKG ---
Test Date: 2022-10-02 Test Time: 17:32:33 Queen'S Counsel: MEASUREMENT RESULTS: Intervals: Rate: 60 ME: 236 QRSD: 98 QT: 432 QTc: 432 [place]oughton: P: 31 ME: 236 QRS: 5 T: 52 INTERPRETIVE STATEMENTS: Sinus rhythm with 1st degree AV block with premature atrial complexes Otherwise normal ECG Compared to ECG 08/25/2020 04:38:11 Myocardial infarct finding no longer present Electronically Signed On 10-04-22 17:40:19 INTERLOCKER MAINTAINER by Isaac Soriano
== END 2022-10-02 19:49 | disposition home or self-care (01) ==
LOC: ER 16:15
DX: U07.1 COVID-19 (principal); E86.0 Dehydration; I10 Essential (primary) hypertension; E11.9 Type 2 diabetes mellitus without complications; Z72.0 Tobacco use
CPT/HCPCS: 96361; 93005; 85025; 80048; 36415; 83735; 85610; 80076; 81003; 84484; 83880; 0240U; 71045; 96360; 99284; J7120

== ENCOUNTER 2022-11-13 13:09 | Emergency (ER) | payer OTHER ==
--- OUTSIDE RECORDS SUMMARY | 2022-11-13 13:14 | XMS REPORT | Continuity of Care Document ---
:1955 Author Organization [facility] t Address [address] [place] [address] Care Team Providers Name Role Phone PCP, [...] Expiration Date S katie MEDICARE PART A [id number] 2018 \T\ B 00:00:00 MANAGED MEDICARE [id number] PPO/FFS GENERIC Problems Condition Condition Condition Status Onset Resolution Last Treating Co mments Source Name Details Category Date Date Treatment Clinician Date No known No known Disease Unive rs active active ity of problems problems [facility] Allergies, Adverse Reactions, Alerts Allergy Allergy Status Severity Reaction(s) Onset Inactive Treating Comm ents Source Name Type Date Date Clinician No Known DA Active U [facility] Clear Allergie 00:00: Zheng s 00 [facility] No Known DA Active U [facility] 8[facility]16 Clear Allergie 00:00: Zheng s 00 [facility] NO KNOWN Drug Active Univers ALLERGIE Class ity of S [facility] Social History Social Habit Start Date Stop Date Quantity Comments Source Tobacco use and 2020-12-13 2020-12-13 Never used [facility] exposure 00:00:00 00:00:00 [facility] Sex Ass[birth year] [facility] 00:00:00 00:00:00 [facility] Smoking Status Start Date Stop Date Source Former smoker 2020-12-13 00:00:00 2020-12-13 00:00:00 [facility] Medications Ordered Filled Start Stop Current Ordering Indication Dosage Frequency Signature Comments Components Source Medication Medication Date Date Medication? Clinician (SIG) Name Name DICLOFENAC Yes [id number] TAKE 1 U nivers 75 mg EC 5-17 TABLET BY ity of tablet 00:00: MOUTH [place] 00 TWICE A Medical DAY WITH [place] MEALS Immunizations Ordered Filled Immunization Date Status Comments Lorin cotton Immunization Name Name SARS-COV-2 COVID-19 2020-12-15 Completed Unive rsity of PFIZER VACCINE 00:00:00 [facility] SARS-COV-2 COVID-19 2020-11-24 Completed Unive rsity of PFIZER VACCINE 00:00:00 [facility] Vital Signs Vital Name Observation Time Observation Value Comments Source Respiratory rate 2021 14:58:00 18 /min [facility] Body weight 2021 14:58:00 90.719 kg [facility] BMI 2021 14:58:00 29.53 kg/m2 [facility] Procedures Procedure Date / Time Performed Performing Clinician Lorin cotton [id number] 2021-05-21 00:00:00 RAJEEV [facility] Encounters Start End Encounter Admission Attending Care Care Encounter Source Date/Time Date/Time Type Type Clinicians Facility Department ID 2021-05-21 2021-05-22 Inpatient SHANEL Titus [facility]G [id number] [facility] 06:34:00 15:41:00 [facility] 2021-05-13 2021-05-14 Outpatient ERICA Nam 3DAY [id number] [facility] 09:00:00 23:00:00 Carlos 95 [facility] 2021-05-13 2021-05-13 Outpatient AMANDA TitusCL LABO [id number] [facility] 19:01:00 19:01:00 Carlos 40 [facility] 2021-05-13 2021-05-13 Outpatient AMANDA TitusWU REFE [id number] [facility] 18:10:00 18:10:00 Carlos 14 [facility] 2021 2021 Outpatient Kayla PRATT [facility] [id number] Univers 10:00:00 10:28:39 [facility] 2021 Office Venus Vásquez [facility] [id number] [facility] 09:55:18 10:28:39 Visit Leydi Pratt [facility] [id number] ity of SURGICAL 4.2.7.2.686 Darren as SPECIALTI [id number] Hi dical ES 198 [facility] 2021-02-11 2021-02-11 [facility] [id number] 00:00:00 00:00:00 [facility] [id number] Surgical 4.2.7.2.686 Specialti [id number] es 198 [place] 2021-02-11 2021-02-11 [facility] [id number] Univers 00:00:00 00:00:00 [facility] 350.1.13.10 it y of Surgical 4.2.7.2.686 Darren as Specialti [id number] Hi dical es [address] [place] 2020-12-15 2020-12-15 Outpatient [facility] [id number] Univers 12:45:00 12:45:00 ity [facility] 2020-12-13 2020-12-13 [facility] [id number] Univers 14:21:26 23:59:00 Encounter Venus Andino 350.1.13.10 ity of Surgical 4.2.7.2.686 Darren as Specialti [id number] Me dical es 809 [facility] 2020-12-13 2020-12-13 [facility] [id number] Univers 14:21:26 23:59:[address] [facility] 2020-12-13 2020-12-13 [facility] [id number] 14:21:26 23:59:00 Encounter Venus Andino 350.1.13.10 Surgical 4.2.7.2.686 Specialti [id number] es 809 [place] 2020-12-13 2020-12-[address] [facility] [id number] [facility] 14:14:31 14:51:01 Visit Venus Andino 350.1.13.10 it y of Surgical 4.2.7.2.686 Darren as Specialti [id number] Me dical es 198 [facility] 2020-12-13 2020-12-[address] [facility] [id number] 14:14:31 14:51:01 Visit Venus Andino 350.1.13.10 Surgical 4.2.7.2.686 Specialti [id number] es 198 [place] 2020-11-24 2020-11-24 [facility] [id number] [facility] 12:20:00 12:20:00 [facility] Results Test Description Test Time Test Comments Results Result Comments Source GLUBED 2021-05-27 09:40:00 Test Item Value Reference Range Interpretation Comme nts GLUBED (test code = GLUBED) 316 mg/dL 60-125 H [id number] 09:39:00 Test Item Value Reference Range Interpretation Comments GLUBED (test code = 480 mg/dL 60-125 HH See CRIT ICAL RESULTS GLUBED) Form for docume ntation. BASIC METABOLIC [id number] 11:44:00 Test Item Value Reference Range Interpretation [...] RATE (test code = GFR) mL/mi n/1.73 [id number] Range:Healthy A dults >90 mL/min/1.73 m2 For Chronic Kid chet Disease: Stage II Mild Decrease i n GFR 60-90 Stage III Moderate Decrea se in GFR 30-59 Stage IV Severe Decrease in GFR 15-29 Stage V Kidney Failure <15 CREATININE (test code 2.19 mg/dL 0.55-1.30 H = CREAT) CALCIUM (test code = 9.4 mg/dL 8.2-10.1 N CA) [id number] 11:19:00 Test Item Value Reference Range Interpretation Comments GLUBED (test code = GLUBED) 308 mg/dL 60-125 H BASIC METABOLIC [id number] 07:40:00 Test Item Value Reference Range Interpretation Comments SODIUM (test code = 134 mmol/L 136-145 L NA) POTASSIUM (test code = 6.2 mmol/L 3.5-5.1 HH VERIF IED BY REPEAT K) ANALYSIS.CRITIC AL VALUE CALLED TO ALFREDO NARVAEZ/CHUCK NARVAEZ PCUREAD BACK & CONFIRMED? YESB Y [id number] CHLORIDE (test code = 97.0 mmol/L 98-107 L CL) CARBON DIOXIDE (test 25.2 mmol/L 21-32 N code = CO2) GLUCOSE (test code = 207 mg/dL 70-110 H GLU) BLOOD UREA NITROGEN 32 mg/dL 7-18 H (test code = BUN) GLOMERULAR FILTRATION 32.5 >60 Unit o f measure: RATE (test code = GFR) mL/mi n/1.73 [id number] Range:Healthy A dults >90 mL/min/1.73 m2 For Chronic Kid chet Disease: Stage II Mild Decrease i n GFR 60-90 Stage III Moderate Decrea se in GFR 30-59 Stage IV Severe Decrease in GFR 15-29 Stage V Kidney Failure <15 CREATININE (test code 2.05 mg/dL 0.55-1.30 H = CREAT) CALCIUM (test code = 9.2 mg/dL 8.2-10.1 N CA) HGB [id number] 06:56:00 Test Item Value Reference Range Interpretation Comments HEMOGLOBIN (test code = HGB) 12.6 g/dL 12-16 N HEMATOCRIT (test code = HCT) 37.6 % 37-47 N SPECIMEN COMMENT: POD #[id number] 05:43:00 Test Item Value Reference Range Interpretation Comments GLUBED (test code = GLUBED) 255 mg/dL 60-125 H [id number] 00:34:00 Test Item Value Reference Range Interpretation Comments GLUBED (test code = GLUBED) 146 mg/dL 60-125 H [id number] 22:24:00 Test Item Value Reference Range Interpretation Comments GLUBED (test code = GLUBED) 238 mg/dL 60-125 H [id number] 20:11:00 Test Item Value Reference Range Interpretation Comments GLUBED (test code = 405 mg/dL 60-125 HH See CRIT ICAL RESULTS GLUBED) Form for docume ntation. [id number] 17:16:00 Test Item Value Reference Range Interpretation Comments GLUBED (test code = 457 mg/dL 60-125 HH See CRIT ICAL RESULTS GLUBED) Form for docume ntation. - XR KNEE 1 OR 2 V [id number] 11:56:00 [facility] : 1955 Sex: M Patient Name: GRANT GAO Unit No: [id number] EXAMS: CPT CODE: [id number] XR KNEE 1 OR 2 [place] [id number] IMAGES PROVIDED: 2 FINDINGS: Postoperative changes from right total knee arthoplasty demonstratedwithout evidence of immediate complication. No acute fracture is visualized. IMPRESSION: Postoperative exam as above. at 1156 Reported and signed by: Shalom De La Paz M.D. CC: Carlos Titus MD Technologist: CHELY REESE (RT.R) Transcribed D/ (1156) PriyankShilpa [facility] NAME: GRANT GAO [address] [address] PHYS: Carlos Morataya MD : 1955 AGE: 66 SEX: M [place] [address] LOC: Y.312 A PHONE #: [phone] EXAM DATE: 05/21/2021 STATUS: ADM IN FAX #: [phone] RAD #: D/C DT PAGE 1 Signed Report Patient Name: GRANT GAO Unit No: [id number] EXAMS: CPT CODE: [id number] XR KNEE 1 OR 2 V RT [id number] (Continued) Orig Print D/T: S: 05/21/2021 (1159) [facility] NAME: GRANT GAO [address] [facility] [address] PHYS: Carlos Morataya MD : 1955 AGE: 66 SEX: M [place] [address] LOC: Y.312 A PHONE #: [phone] EXAM DATE: 05/21/2021 STATUS: ADM IN FAX #: [phone] RAD #: D/C DT PAGE 2 Signed [id number] 09:14:00 Test Item Value Reference Range Interpretation Comments GLUBED (test code = GLUBED) 280 mg/dL 60-125 H Novel Coronavirus 2019 [id number] 19:16:00 Test Item Value Reference Range Interpretation [...] assa y in vitro. Novel Coronavirus 2018 [id number] 19:15:00 Test Item Value Reference Range Interpretation [...] for the identification of SARS-CoV-2 RNA usingthe Linked[employer] M2000 Sy stem under the FDA Emergen cy UseAuthorizatio n. The testing is perf ormed by personneltraine d in the procedures for the Linkedwith M2000 molecular diagnostic SARS-CoV-2 assa y in vitro. COMPREHENSIVE METABOLIC [id number] 20:42:00 Test Item Value Reference Range Interpretation [...] RATE (test code = GFR) mL/mi n/1.73 [id number] Range:Healthy Adults >90 mL/min/1.73 m2 For Chronic [...] patients.DONE A T: [facility] [id number] [facility] [place], [place] [address] GLYCOSYLATED HEMOGLOBIN (HA1C)2021-05-13 19:44:00 Test [...] be considered for these patients. CBC W/AUTO [id number] 18:28:00 Test Item Value Reference Range Interpretation [...]
[2022-11-13 14:07] LABS: Absolute Lymphocytes (CBC) 0.5 K/uL (0.7-4.9); Hematocrit 44.7 % (39.6-49.0); Lymphocytes % 4.9 % (15.3-44.8); MCV 97.5 fL (80-100); MPV 9.1 fL (7.6-11.3); RBC Red Blood Cell Count 4.58 M/uL (4.33-5.43)
[2022-11-13] MEDS ORDERED: NA CHLORIDE 0.9% 1,000 ML ONE (14:10)
[2022-11-13] MEDS ORDERED: ONDANSETRON 4 MG/2 ML VIAL ONE (14:10)
[2022-11-13] MEDS ORDERED: FAMOTIDINE 20 MG/2 ML VIAL IV ONE (14:10)
[2022-11-13 14:29] LABS: Albumin 3.9 g/dL (3.4-5.0); Bilirubin Total 1.1 mg/dL (0.2-1.0); Potassium 4.3 mmol/L (3.5-5.1); Protein, Total 7.9 g/dL (6.4-8.2)
[2022-11-13 14:46] LABS: SARS-COV-2 RT PCR NEGATIVE (NEGATIVE)
--- NOTE | 2022-11-13 14:59 | RAD REPORT ---
EXAM DESCRIPTION: CT - Abdomen Pelvis Wo Contrast - 11/13/2022 2:42 pm CLINICAL HISTORY: Abdominal pain COMPARISON: 2019 TECHNIQUE: Computed axial tomography of the abdomen and pelvis was obtained. IV and oral contrast we re not requested. All CT scans are performed using dose optimization technique as appropriate and may include automated exposure control or mA/KV adjustment according to patient size. FINDINGS: The evaluation of solid organs, vessels and bowel is limited secondary to the lack of con trast administration. Fatty liver Spleen, adrenals and left kidney grossly normal. Pancreas is atrophic containing many coarse calcifications. Cholecystectomy. 2.8 centimeter cystic mass extends off of the right kidney. It was previously shown to represent cyst . 8 centimeter cystic mass abuts the liver and right kidney. It also was previously shown to represent cyst. Small nonobstructing right renal calculus Normal appendix. No evidence of diverticulitis. Small hiatal hernia Small to moderate right inguinal hernia contains fat. 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 Spondylosis involves the spine IMPRESSION: Fatty liver Chronic pancreatitis
--- NOTE | 2022-11-13 16:29 | ER ---
Nurse's Notes [facility] Shreyas Mcke[facility] Age: 67 yrs Sex: Male : 1955 Arrival Date: 11/13/2022 Time: 13:12 Bed 26 Private MD: Diagnosis: Abdominal pain, unspecified Presentation: 11/13 13:23 Chief complaint: Patient states: N/V/D x 3 days. Coronavirus screen: Vaccine status: jl7 Patient reports receiving the 2nd dose of the covid vaccine. At this time, the client does not indicate any symptoms associated with coronavirus-19. Ebola Screen: No symptoms or risks identified at this time. Initial Sepsis Screen: Does the patient meet any 2 criteria? No. Patient's initial sepsis screen is negative. Does the patient have a suspected source of infection? No. Patient's initial sepsis screen is negative. Risk Assessment: Do you want to hurt yourself or someone else? Patient reports no desire to harm self or others. Onset of symptoms was November 10, 2022. 13:23 Method Of Arrival: Ambulatory [facility] 13:23 Acuity: FRIDA 3 jl7 Triage Assessment: 13:24 General: Appears in no apparent distress. uncomfortable, Behavior is calm, cooperative, jl7 appropriate for age. Pain: Complains of pain in right upper quadrant Pain currently is 3 out of 10 on a pain scale. GI: Reports diarrhea, nausea, vomiting. Historical: - Allergies: 13:24 No Known Allergies; jl7 - Home Meds: 13:24 losartan 100 mg oral tab [Active]; atorvastatin oral [Active]; pantoprazole oral jl7 [Active]; Humalog U-100 Insulin 100 unit/mL Sub-Q crtg [Active]; Tresiba FlexTouch U-100 100 unit/mL (3 mL) subcutaneous inpn [Active]; - PMHx: 13:24 Hypertension; kidney disease; Left foot wound; GERD; Diabetes mellitus; jl7 - PSHx: 13:24 Cholecystectomy; jl7 - Immunization history:: Client reports receiving the 2nd dose of the Covid vaccine. - Social history:: Smoking status: Patient denies any tobacco usage or history of. Screenin:50 [facility] ED Fall Risk Assessment (Adult) History of falling in the last 3 months, kr3 including since admission No falls in past 3 months (0 pts) Confusion or Disorientation No (0 pts) Intoxicated or Sedated No (0 pts) Impaired Gait No (0 pts) Mobility Assist Device Used No (0 pt) Altered Elimination No (0 pt) Score/Fall Risk Level 0 - 2 = Low Risk Oriented to surroundings, Maintained a safe environment, Educated pt \T\ family on fall prevention, incl call for assistance when getting out of bed, Assessed \T\ reinforced patient's understanding of fall precautions, Hourly rounding (assess needs \T\ fall precautionary measures) done. Abuse screen: Denies threats or abuse. Nutritional screening: No deficits noted. Tuberculosis screening: No symptoms or risk factors identified. Assessment: 13:35 General: Appears in no apparent distress. uncomfortable, Behavior is calm, cooperative, kr3 appropriate for age. Pain: Complains of pain in abdomen. Neuro: Level of Consciousness is awake, alert, obeys commands, Oriented to person, place, time, situation. Cardiovascular: Patient's skin is warm and dry. Respiratory: Airway is patent Respiratory effort is even, unlabored, Respiratory pattern is regular, symmetrical. GI: Abdomen is round non-distended. : No signs and/or symptoms were reported regarding the genitourinary system. EENT: No signs and/or symptoms were reported regarding the EENT system. Derm: No signs and/or symptoms reported regarding the dermatologic system. Musculoskeletal: No signs and/or symptoms reported regarding the musculoskeletal system. 14:00 GI: Bowel sounds present X 4 quads. kr3 15:05 Reassessment: Patient appears in no apparent distress at this time. Patient and/or kr3 family updated on plan of care and expected duration. Pain level reassessed. Patient is alert, oriented x 3, equal unlabored respirations, skin warm/dry/pink. 15:30 Reassessment: Patient appears in no apparent distress at this time. Patient and/or kr3 family updated on plan of care and expected duration. Pain level reassessed. Patient is alert, oriented x 3, equal unlabored respirations, skin warm/dry/pink. 17:32 GI: kr3 Vital Signs: 13:23 BP 124 / 74; Pulse 108; Resp 19; Temp 98.4(O); Pulse Ox 98% ; Weight 92.99 kg; Height 5 jl7 ft. 9 in. (175.26 cm); 14:30 BP 120 / 54; Pulse 61; Resp 17; Pulse Ox 97% on R/A; kr3 15:30 BP 145 / 67; Pulse 87; Resp 18; Pulse Ox 95% on R/A; kr3 13:23 Body Mass Index 30.27 (92.99 kg, 175.26 cm) jl7 ED Course: 13:12 Patient arrived in ED. rg4 13:24 Triage completed. jl7 13:24 Arm band placed on right wrist. jl7 13:25 Donnie Henriquez, TRISHA is PHCP. pm1 13:25 Kassandra Smith MD is Attending Physician. pm1 13:28 Maria G Parnell, BRICE is Primary Nurse. kr3 13:40 Bed in low position. Call light in reach. Side rails up X 1. kr3 13:58 Inserted saline lock: 22 gauge in right forearm, using aseptic technique. Blood kr3 collected. 14:29 COVID-19/FLU A+B Sent. kr3 14:44 Abdomen In Process Unspecified. EDMS 17:30 No provider procedures requiring assistance completed. IV discontinued, intact, kr3 bleeding controlled, No redness/swelling at site. Pressure dressing applied. Administered Medications: 14:28 Drug: NS 0.9% 1000 ml Route: IV; Rate: 1 bolus; Site: left forearm; kr3 16:12 Follow up: Response: No adverse reaction; IV Status: Completed infusion; IV Intake: kr3 1000ml 14:28 Drug: Pepcid (famotidine) 20 mg Route: IVP; Site: left forearm; kr3 16:12 Follow up: Response: No adverse reaction kr3 14:29 Drug: Zofran (Ondansetron) 4 mg Route: IVP; Site: left forearm; kr3 16:13 Follow up: Response: No adverse reaction kr3 Medication: 17:32 VIS not applicable for this client. kr3 Intake: 16:12 IV: 1000ml; Total: 1000ml. kr3 Outcome: 16:28 Discharge ordered by . pm1 16:30 Discharged to home ambulatory. kr3 16:30 Discharge instructions given to patient, Instructed on discharge instructions, follow up and referral plans. medication usage, Demonstrated understanding of instructions, follow-up care, medications, Prescriptions given X 2. 16:40 Patient left the ED. kr3 17:31 Condition: stable kr3 Signatures: Dispatcher [employer] EDMS Donnie Henriquez, TRISHA [employer] pm1 Chichi Bailey rg4 Marisabel Carpenter RN RN jl7 Maria G Parnell RN RN kr3 Corrections: (The following items were deleted from the chart) 13: 13:24 PMHx: Diabetes - NIDDM; blanca rios
--- NOTE | 2022-11-13 16:29 | EDPHYS ---
Physician Documentation [facility] Name: Shreyas Mckeon Age: 67 yrs Sex: Male : 1955 Arrival Date: 11/13/2022 Time: 13:12 Bed 26 Private MD: ED Physician Kassandra Smith HPI: 11/13 13:36 This 67 yrs old Male presents to ER via Ambulatory with complaints of Abdominal Pain. pm1 13:36 The patient presents with abdominal pain right lower quadrant. Onset: The pm1 symptoms/episode began/occurred 3 day(s) ago. The symptoms do not radiate. Associated signs and symptoms: Pertinent positives: nausea, vomiting, and diarrhea, Pertinent negatives: dysuria, fever. The symptoms are described as achy. Modifying factors: The symptoms are alleviated by nothing, the symptoms are aggravated by nothing. Severity of pain: in the emergency department the pain is unchanged. The patient has experienced similar episodes in the past, several times, today's symptoms are similar, to previous pancreatitis. Patient drinks daily and reports drinking 2-3 beers per day. Patient has been drinking the past 3 days. The patient has not recently seen a physician. Historical: - Allergies: 13:24 No Known Allergies; jl7 - Home Meds: 13:24 losartan 100 mg oral tab [Active]; atorvastatin oral [Active]; pantoprazole oral jl7 [Active]; Humalog U-100 Insulin 100 unit/mL Sub-Q crtg [Active]; Tresiba FlexTouch U-100 100 unit/mL (3 mL) subcutaneous inpn [Active]; - PMHx: 13:24 Hypertension; kidney disease; Left foot wound; GERD; Diabetes mellitus; jl7 - PSHx: 13:24 Cholecystectomy; jl7 - Immunization history:: Client reports receiving the 2nd dose of the Covid vaccine. - Social history:: Smoking status: Patient denies any tobacco usage or history of. ROS: 13:36 Cardiovascular: Negative for chest pain, palpitations, and edema, Respiratory: Negative pm1 for shortness of breath, cough, wheezing, and pleuritic chest pain. 13:36 Back: Negative for injury and pain, : Negative for injury, bleeding, discharge, and swelling, MS/Extremity: Negative for injury and deformity, Skin: Negative for injury, rash, and discoloration. 13:36 Neuro: Negative for headache, weakness, numbness, tingling, and seizure. 13:36 Constitutional: Positive for poor PO intake, Negative for body aches, fever. 13:36 Abdomen/GI: Positive for abdominal pain, nausea, vomiting, and diarrhea, of the right lower quadrant, Negative for constipation. 13:36 All other systems are negative. Exam: 13:36 Constitutional: This is a well developed, well nourished patient who is awake, alert, pm1 and in no acute distress. Head/Face: Normocephalic, atraumatic. 13:36 Back: No spinal tenderness. No costovertebral tenderness. Full range of motion. Skin: Warm, dry with normal turgor. Normal color with no rashes, no lesions, and no evidence of cellulitis. MS/ Extremity: Pulses equal, no cyanosis. Neurovascular intact. Full, normal range of motion. 13:36 Eyes: Exam is negative for acute changes, Conjunctiva: no acute changes, no injection. 13:36 ENT: Exam is negative for acute changes, Mouth: no acute changes, Lips: normal, moist, Oral mucosa: normal, pink and intact, moist. 13:36 Cardiovascular: Exam negative for acute changes, Rate: normal, Rhythm: regular, Pulses: no pulse deficits are appreciated. 13:36 Respiratory: Exam negative for acute changes, respiratory distress, shortness of breath, Breath sounds: are clear throughout. 13:36 Abdomen/GI: Exam negative for acute changes, Inspection: abdomen appears normal, Palpation: abdomen is soft and non-tender, in all quadrants. 13:36 Neuro: Exam negative for acute changes, Orientation: is normal, Mentation: is normal, Motor: moves all fours. Vital Signs: 13:23 BP 124 / 74; Pulse 108; Resp 19; Temp 98.4(O); Pulse Ox 98% ; Weight 92.99 kg; Height 5 jl7 ft. 9 in. (175.26 cm); 14:30 BP 120 / 54; Pulse 61; Resp 17; Pulse Ox 97% on R/A; kr3 15:30 BP 145 / 67; Pulse 87; Resp 18; Pulse Ox 95% on R/A; kr3 13:23 Body Mass Index 30.27 (92.99 kg, 175.26 cm) jl7 MDM: 13:32 Patient medically screened. pm1 13:39 Data reviewed: vital signs. pm1 13:39 Differential diagnosis: appendicitis, cholecystitis, Cholelithiasis, diverticulitis, pm1 gastritis, gastroesophageal reflux disease, non-specific abd pain, pancreatitis. 13:40 Care significantly affected by the following chronic conditions: Diabetes, pm1 Hypertension, Alcoholism. 16:21 ED course: Offered patient additional IV fluids. Patient reports he feels well-hydrated pm1 and refused. Patient passed p.o. challenge. Patient does report he drinks alcohol due to anxiety. He used to take zolpidem and is requesting that medication if possible. [place]MP[place] reviewed and no history found. 11/13 13:32 Order name: CBC with Diff; Complete Time: 14:31 pm1 11/13 13:32 Order name: CMP; Complete Time: 14:31 pm1 11/13 13:32 Order name: Lipase; Complete Time: 14:31 pm1 11/13 13:35 Order name: Glucose, Ancillary Testing; Complete Time: 13:35 EDMS 11/13 13:38 Order name: COVID-19/FLU A+B; Complete Time: 15:10 pm1 11/13 13:32 Order name: IV Saline Lock; Complete Time: 14:04 pm1 11/13 13:32 Order name: Labs collected and sent; Complete Time: 14:04 pm1 11/13 14:35 Order name: Abdomen ; Complete Time: 15:10 EDMS 11/13 16:02 Order name: PO challenge; Complete Time: 16:12 pm1 Administered Medications: 14:28 Drug: NS 0.9% 1000 ml Route: IV; Rate: 1 bolus; Site: left forearm; kr3 16:12 Follow up: Response: No adverse reaction; IV Status: Completed infusion; IV Intake: kr3 1000ml 14:28 Drug: Pepcid (famotidine) 20 mg Route: IVP; Site: left forearm; kr3 16:12 Follow up: Response: No adverse reaction kr3 14:29 Drug: Zofran (Ondansetron) 4 mg Route: IVP; Site: left forearm; kr3 16:13 Follow up: Response: No adverse reaction kr3 Disposition Summary: 11/13/22 16:28 Discharge Ordered Location: Home pm1 Problem: new pm1 Symptoms: have improved pm1 Condition: Stable pm1 Diagnosis - Abdominal pain, unspecified pm1 Followup: pm1 - With: Emergency Department - When: As needed - Reason: Worsening of condition Followup: pm1 - With: Private Physician - When: 2 - 3 days - Reason: Recheck today's complaints, Continuance of care, Re-evaluation by your physician Discharge Instructions: - Discharge Summary Sheet pm1 - Abdominal Pain, Adult pm1 - Food Choices to Help Relieve Diarrhea, Adult pm1 - Diarrhea, Adult pm1 - Nausea and Vomiting, Adult pm1 Forms: - Medication Reconciliation Form pm1 - Thank You Letter pm1 - Antibiotic Education pm1 - Prescription Opioid Use pm1 Prescriptions: - dicyclomine 20 mg Oral Tablet - take 1 tablet by ORAL route 4 times per day As needed; 20 tablet; Refills: 0, pm1 Product Selection Permitted - ondansetron 4 mg Oral - take 4 milligrams by SUBLINGUAL route every 8 hours; 15 tablet; Refills: 0, pm1 Product Selection Permitted Signatures: Dispatcher [employer] Donnie Wetzel, TRISHA SALES AGENT pm1 Marisabel Carpenter RN RN [id number] Maria G Parnell RN RN kr3 Corrections: (The following items were deleted from the chart) 13:26 13:24 PMHx: Diabetes - NIDDM; blanca jl7 14:35 13:33 Abdomen Pelvis W [id number].[id number] ordered. EDNE EDMS
[2022-11-13 16:52] VITALS: TEMP 98.4
[2022-11-13 17:03] VITALS: BP 145/67; O2SAT 95
== END 2022-11-13 16:40 | disposition home or self-care (01) ==
LOC: ER 13:09
DX: R10.31 Right lower quadrant pain (principal); F10.20 Alcohol dependence, uncomplicated; E11.9 Type 2 diabetes mellitus without complications; Z79.4 Long term (current) use of insulin; I10 Essential (primary) hypertension; Z20.822 Contact with and (suspected) exposure to COVID-19
CPT/HCPCS: 96361; 85025; 36415; 82947; 83690; 80053; 0240U; 74176; 96375; 96374; 99284; J7030; J2405